=== PATIENT | male | born 1985 | race Caucasian/White ===

== ENCOUNTER 2017-10-05 07:34 | Emergency (ER) | payer SELFPAY ==
[~2017-10-05] VITALS: Ht 180.3 cm; Wt 59.0 kg
[2017-10-05 07:52] VITALS: BP 134/51
[2017-10-05] MEDS ORDERED: PREMARIN0.3 MG ORAL (07:54)
[2017-10-05] MEDS ORDERED: SPIRONOLACTONE100 MG ORAL (07:54)
[2017-10-05] MEDS ORDERED: Metoclopramide 10mg/2ml Inj IVP ONE (08:15)
[2017-10-05] MEDS ORDERED: Morphine Sulfate 4mg/ml Inj IVP ONE ×2 (08:15→08:45)
--- NOTE | 2017-10-05 08:18 | Emergency Room Report ---
History of Present Illness General Chief Complaint: Abdominal Pain Source: Patient Present Illness HPI Patient presents with mid and right upper abdominal pain He reports a last week he was diagnosed with pancreatitis Now the pain has come back 07/05 Denies any diarrhea however he has had nausea Denies any chest pain or shortness of breath Patient appears uncomfortable upon presentation Patient reports appendectomy last year Allergies: Coded Allergies: PENICILLINS (Verified Allergy, Unknown, 10/05/17) Uncoded Allergies: MORPHINE (Allergy, Unknown, hives, 10/05/17) Patient History Past Medical History: see triage record Pertinent Family History: none Reviewed Nursing Documentation: PMH: Agreed, PSxH: Agreed Nursing Documentation-PMH Past Medical History: No History, Except For Hx Gastrointestinal Problems: Yes - Pancreatitis Review of Systems All Other Systems: negative except mentioned in HPI Physical Exam Vital Signs Date Time Temp Pulse Resp B/P (MAP) Pulse Ox O2 Delivery O2 Flow Rate FiO2 10/05/17 07:40 97.5 75 14 134/51 97 Room Air Sp02 EP Interpretation: reviewed, normal General Appearance: mild distress Head: normocephalic, atraumatic Eyes: bilateral eye PERRL, bilateral eye EOMI ENT: other - Poor dentition with multiple decayed teeth Neck: full range of motion, supple Respiratory: lungs clear Cardiovascular #1: regular rate, rhythm Gastrointestinal: other - Exam is out of proportion to the evaluation, with slight touch the patient is grimacing, however appears uncomfortable Genitourinary: no CVA tenderness Musculoskeletal: normal inspection, back normal Neurologic: alert, oriented x3 Skin: normal color, no rash Lymphatic: no adenopathy Medical Decision Making Diagnostic Impression: Primary Impression: Abdominal pain ER Course With the history exam and presentation, multiple differentials considered, including but not limited to appendicitis, gastritis, cholecystitis, diverticulitis Patient's blood work is normal patient has significantly better with acute intervention At this time stable for close outpatient followup Labs Test 10/05/17 07:49 10/05/17 08:27 Urine Color Yellow Urine Appearance Clear Urine pH 6 (4.5-8.0) Urine Specific [place] 1.025 (1.005-1.035) Urine Protein Negative (NEGATIVE) Urine Glucose (UA) Negative (NEGATIVE) Urine Ketones 2+ (NEGATIVE) Urine Occult Blood Negative (NEGATIVE) Urine Nitrite Negative (NEGATIVE) Urine Bilirubin Negative (NEGATIVE) Urine Urobilinogen Normal MG/DL (0.0-1.0) Urine Leukocyte Esterase Negative (NEGATIVE) White Blood Count 7.2 K/UL (4.8-10.8) Red Blood Count 4.11 M/UL (4.70-6.10) Hemoglobin 13.8 G/DL (14.2-18.0) Hematocrit 42.6 % (42.0-52.0) Mean Corpuscular Volume 104 FL (80-99) Mean Corpuscular Hemoglobin 33.5 PG (27.0-31.0) Mean Corpuscular Hemoglobin Concent 32.3 G/DL (32.0-36.0) Red Cell Distribution Width 11.7 % (11.6-14.8) Platelet Count 224 K/UL (150-450) Mean Platelet Volume 6.7 FL (6.5-10.1) Neutrophils (%) (Auto) 62.9 % (45.0-75.0) Lymphocytes (%) (Auto) 28.5 % (20.0-45.0) Monocytes (%) (Auto) 5.5 % (1.0-10.0) Eosinophils (%) (Auto) 2.4 % (0.0-3.0) Basophils (%) (Auto) 0.7 % (0.0-2.0) Sodium Level 139 MMOL/L (136-145) Potassium Level 3.7 MMOL/L (3.5-5.1) Chloride Level 106 MMOL/L (98-107) Carbon Dioxide Level 24 MMOL/L (21-32) Anion Gap 10 mmol/L (5-15) Blood Urea Nitrogen 21 mg/dL (7-18) Creatinine 0.9 MG/DL (0.55-1.30) Estimat Glomerular Filtration Rate > 60 mL/min (>60) Glucose Level 108 MG/DL (74-106) Calcium Level 8.8 MG/DL (8.5-10.1) Total Bilirubin 0.2 MG/DL (0.2-1.0) Aspartate Amino Transf (AST/SGOT) 12 U/L (15-37) Alanine Aminotransferase (ALT/SGPT) 20 U/L (12-78) Alkaline Phosphatase 62 U/L (46-116) Total Protein 6.9 G/DL (6.4-8.2) Albumin 3.9 G/DL (3.4-5.0) Globulin 3.0 g/dL Albumin/Globulin Ratio 1.3 (1.0-2.7) Lipase 103 U/L (73-393) Last Vital Signs Date Time Temp Pulse Resp B/P (MAP) Pulse Ox O2 Delivery O2 Flow Rate FiO2 10/05/17 07:52 97.5 14 134/51 97 Room Air 10/05/17 07:40 75 Status: improved Disposition: HOME, SELF-CARE Condition: Improved Scripts Famotidine (PEPCID) 40 Mg Tablet 40 MG PO DAILY, #7 TAB 0 Refills Prov: KARL MOE D.O. 10/05/17 Referrals: NOT CHOSEN IPA/MD,REFERRING (PCP) Additional Instructions: Patient is provided with the discharge instructions notified to follow up with primary doctor in the next 2-3 days otherwise return to the er with any worsening symptoms. Please note that this report is being documented using [employer] technology. This can lead to erroneous entry secondary to incorrect interpretation by the dictating instrument. KARL MOE D.O. Oct 05, 2017 08:17
[2017-10-05] MEDS ORDERED: LORazepam Inj 2mg/ml 1ml IV ONE (08:45)
[2017-10-05 08:49] LABS: BASOPHILS % (AUTO) 0.7 % (0.0-2.0); EOSINOPHILS % (AUTO) 2.4 % (0.0-3.0); HEMATOCRIT 42.6 % (42.0-52.0); HEMOGLOBIN 13.8 G/DL (14.2-18.0); LYMPHOCYTES % (AUTO) 28.5 % (20.0-45.0); MEAN CORPUSCULAR VOLUME 104 FL (80-99); MONOCYTES % (AUTO) 5.5 % (1.0-10.0); NEUTROPHILS % (AUTO) 62.9 % (45.0-75.0); PLATELET COUNT 224 K/UL (150-450); RED BLOOD COUNT 4.11 M/UL (4.70-6.10); RED CELL DISTRIBUTION WIDTH 11.7 % (11.6-14.8); WHITE BLOOD COUNT 7.2 K/UL (4.8-10.8)
[2017-10-05 08:50] LABS: APPEARANCE,URINE CLEAR; BILIRUBIN, URINE NEGATIVE (NEGATIVE); GLUCOSE, URINE (UA) NEGATIVE (NEGATIVE); KETONES,URINE 2+ (NEGATIVE); LEUKOCYTE ESTERASE ,URINE NEGATIVE (NEGATIVE); NITRITE,URINE NEGATIVE (NEGATIVE); PH,URINE 6 (4.5-8.0); PROTEIN,URINE NEGATIVE (NEGATIVE); UROBILINOGEN,URINE NORMAL MG/DL (0.0-1.0)
[2017-10-05 08:51] LABS: ANION GAP 10 mmol/L (5-15); BLOOD UREA NITROGEN 21 mg/dL (7-18); CALCIUM 8.8 MG/DL (8.5-10.1); CARBON DIOXIDE 24 MMOL/L (21-32); CHLORIDE 106 MMOL/L (98-107); CREATININE 0.9 MG/DL (0.55-1.30); POTASSIUM 3.7 MMOL/L (3.5-5.1); SODIUM 139 MMOL/L (136-145)
[2017-10-05 08:55] LABS: ALANINE AMINOTRANSFERASE 20 U/L (12-78); ALBUMIN 3.9 G/DL (3.4-5.0); ALBUMIN/GLOBULIN RATIO 1.3 (1.0-2.7); ALKALINE PHOSPHATASE 62 U/L (46-116); ASPARTATE AMINO TRANSFERASE 12 U/L (15-37); BILIRUBIN,TOTAL 0.2 MG/DL (0.2-1.0)
[2017-10-05 08:58] VITALS: BP 110/65
[2017-10-05 09:01] LABS: COLOR,URINE YELLOW
[2017-10-05] MEDS ORDERED: PEPCID40 MG PO (09:45)
[2017-10-05 10:30] VITALS: BP 137/79
== END 2017-10-05 10:30 | disposition home or self-care (01) ==
LOC: EMR 08:15
DX: R10.11 Right upper quadrant pain (principal); Z87.19 Personal history of other diseases of the digestive system; Z88.0 Allergy status to penicillin; Z88.6 Allergy status to analgesic agent
CPT/HCPCS: 36415; 80053; 81003; 83690; 85025; 96374; 96375; 99284; J2270; J2765

== ENCOUNTER 2017-10-30 22:45 | Emergency (ER) | payer MEDICAID ==
[~2017-10-30] VITALS: Ht 177.8 cm; Wt 59.0 kg
[~2017-10-30 22:45] MED LIST: PEPCID40 MG PO; PREMARIN0.3 MG ORAL; SPIRONOLACTONE100 MG ORAL
--- NOTE | 2017-10-30 23:29 | Emergency Room Report ---
History of Present Illness General Chief Complaint: Abdominal Pain Source: Patient Present Illness HPI Is a 32-year-old male who presents with chewing abdominal pain with nausea vomiting. Onset for last couple days. Pain is severe. 10 out of 10. Vomiting is nonbloody nonbilious. No diarrhea. Said that he had this problem in the past but none recently. He said is worse in the last 2 weeks. He was here before for the same thing. Workup was unremarkable. He denies any drug use other than marijuana. Allergies: Coded Allergies: PENICILLINS (Verified Allergy, Unknown, 10/05/17) Uncoded Allergies: MORPHINE (Allergy, Unknown, hives, 10/05/17) Patient History Past Medical History: see triage record, old chart reviewed Past Surgical History: other Pertinent Family History: none Social History: Reports: smoking Immunizations: other Reviewed Nursing Documentation: PMH: Agreed, PSxH: Agreed Nursing Documentation-PMH Hx Gastrointestinal Problems: Yes - Pancreatitis Review of Systems Eye: Denies: eye pain, blurred vision ENT: Denies: ear pain, nose congestion, throat swelling Respiratory: Denies: cough, shortness of breath Cardiovascular: Denies: chest pain, palpitations Gastrointestinal: Reports: abdominal pain, nausea, vomiting, Denies: diarrhea Musculoskeletal: Denies: back pain, joint pain Skin: Denies: rash Neurological: Denies: headache, numbness Endocrine: Denies: increased thirst, increased urine Hematologic/Lymphatic: Denies: easy bruising All Other Systems: negative except mentioned in HPI Physical Exam Vital Signs Date Time Temp Pulse Resp B/P (MAP) Pulse Ox O2 Delivery O2 Flow Rate FiO2 10/30/17 22:51 97.5 99 15 126/81 97 Room Air vitals normal Sp02 EP Interpretation: reviewed, normal General Appearance: well appearing, no apparent distress, alert Head: normocephalic, atraumatic Eyes: bilateral eye PERRL, bilateral eye EOMI ENT: hearing grossly normal, normal pharynx, other - Diffuse dental decay Neck: full range of motion, supple, no meningismus Respiratory: chest non-tender, lungs clear, normal breath sounds Cardiovascular #1: regular rate, rhythm, no murmur Gastrointestinal: normal bowel sounds, no mass, no organomegaly, no bruit, non- distended, tenderness - diffuse Musculoskeletal: back normal, gait/station normal, normal range of motion Psychiatric: mood/affect normal Skin: warm/dry Medical Decision Making Diagnostic Impression: Primary Impression: Abdominal pain of unknown etiology Additional Impressions: Cyclic vomiting syndrome Qualified Codes: G43.A0 - Cyclical vomiting, not intractable Cocaine abuse Opioid dependence Qualified Codes: F11.20 - Opioid dependence, uncomplicated ER Course Patient presents with abdominal pain and what appear to be cyclic vomiting syndrome. He was extremely rude and combative. He tell me that his problem is only been for the last 2 weeks. On the [facility] system, he had a prescription filled on September 28. he was here on October 05. Patient is from [place]. I have access to [place] prescription monitoring program. There for last year, he received narcotic prescriptions from multiple different doctors every month. When I pointed this out to him he said he lost track of time. When I tried to explain patient that this may be secondary to drug and marijuana abuse causing cyclic vomiting syndrome, he became combative and cut me off before I was able to be finished. He said that is not the case. He been to multiple doctors and no one can figure it out. Patient was using profanity. He called me an "asshole", "motherfucker." I told patient that I am uncomfortable with the language he is using and walked out of the room. This is a chronic problem. Labs unremarkable. We'll discharge patient. patient left prior to labs coming back. He has no vomiting since he has been here. Lab Results Impression labs with leukocytosis Last Vital Signs Date Time Temp Pulse Resp B/P (MAP) Pulse Ox O2 Delivery O2 Flow Rate FiO2 10/30/17 22:51 97.5 99 15 126/81 97 Room Air Status: improved Disposition: AGAINST MEDICAL ADVICE Condition: Stable Referrals: NOT CHOSEN MICHEAL/,REFERRING (PCP) SAMUEL OCAMPO M.D. Oct 30, 2017 23:29
[2017-10-30] MEDS ORDERED: Ketorolac 30mg Inj IV ONE (23:45)
[2017-10-30] MEDS ORDERED: Metoclopramide 10mg/2ml Inj IVP ONE (23:45)
[2017-10-30 23:50] LABS: KETONES,URINE 1+ (NEGATIVE); LEUKOCYTE ESTERASE ,URINE 1+ (NEGATIVE); NITRITE,URINE NEGATIVE (NEGATIVE); PH,URINE 7 (4.5-8.0); PROTEIN,URINE NEGATIVE (NEGATIVE); UROBILINOGEN,URINE 1 MG/DL (0.0-1.0)
[2017-10-30 23:56] LABS: AMORPHOUS SEDIMENT,UR MANY /LPF; APPEARANCE,URINE SLIGHTLY CLOUDY; BACTERIA,URINE FEW /HPF; RBC,URINE 0-2 /HPF (0 - 0); SQUAMOUS EPITHELIAL CELL,UR FEW /LPF (NONE/OCC); WBC,URINE 0-2 /HPF (0 - 0)
[2017-10-31 00:12] LABS: BASOPHILS % (AUTO) 0.4 % (0.0-2.0); EOSINOPHILS % (AUTO) 1.2 % (0.0-3.0); LYMPHOCYTES % (AUTO) 17.2 % (20.0-45.0); MEAN CORPUSCULAR HEMOGLOBIN 33.6 PG (27.0-31.0); MEAN CORPUSCULAR HGB CONC 34.3 G/DL (32.0-36.0); MEAN CORPUSCULAR VOLUME 98 FL (80-99); MEAN PLATELET VOLUME 6.8 FL (6.5-10.1); MONOCYTES % (AUTO) 5.5 % (1.0-10.0); NEUTROPHILS % (AUTO) 75.6 % (45.0-75.0); PLATELET COUNT 297 K/UL (150-450); RED BLOOD COUNT 4.67 M/UL (4.70-6.10); RED CELL DISTRIBUTION WIDTH 11.8 % (11.6-14.8); WHITE BLOOD COUNT 15.7 K/UL (4.8-10.8)
[2017-10-31 00:28] LABS: ANION GAP 10 mmol/L (5-15); CALCIUM 9.8 MG/DL (8.5-10.1); CARBON DIOXIDE 29 MMOL/L (21-32); CHLORIDE 102 MMOL/L (98-107); GLOMERULAR FILTRATION RATE > 60 mL/min (>60); POTASSIUM 3.7 MMOL/L (3.5-5.1); SODIUM 140 MMOL/L (136-145)
[2017-10-31 00:30] VITALS: BP 126/81
[2017-10-31 00:32] LABS: ALANINE AMINOTRANSFERASE 26 U/L (12-78); ALBUMIN/GLOBULIN RATIO 1.4 (1.0-2.7); ASPARTATE AMINO TRANSFERASE 14 U/L (15-37); LIPASE 265 U/L (73-393); TOTAL PROTEIN 7.5 G/DL (6.4-8.2)
== END 2017-10-31 00:30 | disposition left against medical advice (07) ==
LOC: EMR 23:03
DX: R10.9 Unspecified abdominal pain (principal); G43.A0 Cyclical vomiting, in migraine, not intractable; F14.10 Cocaine abuse, uncomplicated; F11.20 Opioid dependence, uncomplicated
CPT/HCPCS: 36415; 80053; 80307; 81003; 83690; 85025; 96361; 96374; 96375; 99284; J1885; J2405; J2765

== ENCOUNTER 2017-12-20 08:07 | Inpatient (IN) | payer MEDICAID ==
[~2017-12-20] VITALS: Ht 180.3 cm; Wt 59.0 kg
--- NOTE | 2017-12-20 08:27 | Emergency Room Report ---
History of Present Illness General Chief Complaint: Abdominal Pain Source: Patient Present Illness HPI Patient is a 32-year-old male presented after increased abdominal pain. Patient had prior history of reported pancreatitis. The patient reports having multiple episodes of vomiting. He reports having diffuse abdominal pain associated with vomiting and diarrhea. The patient is currently taking spironolactone as well as estrogen therapy. Patient had reportedly been vomiting non-bloody emesis. He reports having prior appendectomy. He denies any dysuria or problems with urination. The previous visit patient was noted to be a drug screen positive for cocaine as well as marijuana Allergies: Coded Allergies: PENICILLINS (Verified Allergy, Unknown, 10/05/17) Uncoded Allergies: MORPHINE (Allergy, Unknown, hives, 10/05/17) Patient History Past Medical History: see triage record Reviewed Nursing Documentation: PMH: Agreed, PSxH: Agreed Nursing Documentation-PMH Past Medical History: No History, Except For Hx Gastrointestinal Problems: Yes - Pancreatitis Review of Systems All Other Systems: negative except mentioned in HPI Physical Exam Vital Signs Date Time Temp Pulse Resp B/P (MAP) Pulse Ox O2 Delivery O2 Flow Rate FiO2 12/20/17 08:08 97.2 97 20 149/95 95 Room Air Sp02 EP Interpretation: reviewed, normal General Appearance: normal inspection, alert, GCS 15, moderate distress Head: atraumatic ENT: normal ENT inspection, hearing grossly normal, normal voice Neck: normal inspection, full range of motion, supple, no bony tend Respiratory: normal inspection, lungs clear, normal breath sounds, no respiratory distress, no retraction, no wheezing Cardiovascular #1: regular rate, rhythm, no edema Gastrointestinal: normal inspection, normal bowel sounds, non tender, soft, no guarding, no hernia Genitourinary: no CVA tenderness Musculoskeletal: normal inspection, back normal, normal range of motion Neurologic: normal inspection, alert, oriented x3, responsive, fruit bar maker III-XII nml as tested, speech normal Psychiatric: normal inspection, judgement/insight normal, mood/affect normal, other - agitation Skin: normal inspection, normal color, no rash Medical Decision Making Diagnostic Impression: Primary Impression: Abdominal pain Additional Impression: Leukocytosis, unspecified ER Course Patient presented for abdominal pain. Differential diagnoses included ischemic bowel, appendicitis, perforated viscus, abdominal aortic aneurysm, inferior myocardial infarction, viral gastroenteritis. Because of complexity of patient' s case laboratory testing and imaging studies were ordered. Laboratory testing showed markedly elevated white blood count. CT the head and pelvis read by radiology showed noted to no have acute bowel obstruction. Patient was discussed with Dr. Blakely for inpatient management due to panel physician. Labs Test 12/20/17 08:47 12/20/17 09:20 White Blood Count 21.1 K/UL (4.8-10.8) Red Blood Count 4.40 M/UL (4.70-6.10) Hemoglobin 15.0 G/DL (14.2-18.0) Hematocrit 44.8 % (42.0-52.0) Mean Corpuscular Volume 102 FL (80-99) Mean Corpuscular Hemoglobin 34.2 PG (27.0-31.0) Mean Corpuscular Hemoglobin Concent 33.6 G/DL (32.0-36.0) Red Cell Distribution Width 12.2 % (11.6-14.8) Platelet Count 277 K/UL (150-450) Mean Platelet Volume 7.2 FL (6.5-10.1) Neutrophils (%) (Auto) % (45.0-75.0) Lymphocytes (%) (Auto) % (20.0-45.0) Monocytes (%) (Auto) % (1.0-10.0) Eosinophils (%) (Auto) % (0.0-3.0) Basophils (%) (Auto) % (0.0-2.0) Differential Total Cells Counted 100 Neutrophils % (Manual) 88 % (45-75) Lymphocytes % (Manual) 6 % (20-45) Monocytes % (Manual) 6 % (1-10) Eosinophils % (Manual) 0 % (0-3) Basophils % (Manual) 0 % (0-2) Band Neutrophils 0 % (0-8) Platelet Estimate Adequate Platelet Morphology Normal Macrocytosis 1+ Prothrombin Time 10.7 SEC (9.30-11.50) Prothromb Time International Ratio 1.0 (0.9-1.1) Activated Partial Thromboplast Time 28 SEC (23-33) Sodium Level 139 MMOL/L (136-145) Potassium Level 4.1 MMOL/L (3.5-5.1) Chloride Level 104 MMOL/L (98-107) Carbon Dioxide Level 25 MMOL/L (21-32) Anion Gap 10 mmol/L (5-15) Blood Urea Nitrogen 11 mg/dL (7-18) Creatinine 0.8 MG/DL (0.55-1.30) Estimat Glomerular Filtration Rate > 60 mL/min (>60) Glucose Level 117 MG/DL (74-106) Calcium Level 9.2 MG/DL (8.5-10.1) Total Bilirubin 0.3 MG/DL (0.2-1.0) Aspartate Amino Transf (AST/SGOT) 14 U/L (15-37) Alanine Aminotransferase (ALT/SGPT) 13 U/L (12-78) Alkaline Phosphatase 66 U/L (46-116) Ammonia 20 umol/L (11-32) Troponin I 0.000 ng/mL (0.000-0.056) Total Protein 7.3 G/DL (6.4-8.2) Albumin 4.2 G/DL (3.4-5.0) Globulin 3.1 g/dL Albumin/Globulin Ratio 1.4 (1.0-2.7) Lipase 130 U/L (73-393) Urine Color Pale yellow Urine Appearance Slightly cloudy Urine pH 7 (4.5-8.0) Urine Specific [place] 1.015 (1.005-1.035) Urine Protein Negative (NEGATIVE) Urine Glucose (UA) Negative (NEGATIVE) Urine Ketones 2+ (NEGATIVE) Urine Occult Blood 5+ (NEGATIVE) Urine Nitrite Negative (NEGATIVE) Urine Bilirubin Negative (NEGATIVE) Urine Urobilinogen Normal MG/DL (0.0-1.0) Urine Leukocyte Esterase 1+ (NEGATIVE) Urine RBC Tntc /HPF (0 - 0) Urine WBC 2-4 /HPF (0 - 0) Urine Squamous Epithelial Cells Many /LPF (NONE/OCC) Urine Bacteria Few /HPF (NONE) Urine Opiates Screen Negative (NEGATIVE) Urine Barbiturates Screen Negative (NEGATIVE) Phencyclidine (PCP) Screen Negative (NEGATIVE) Urine Amphetamines Screen Negative (NEGATIVE) Urine Benzodiazepines Screen Negative (NEGATIVE) Urine Cocaine Screen Negative (NEGATIVE) Urine Marijuana (THC) Screen Positive (NEGATIVE) Last Vital Signs Date Time Temp Pulse Resp B/P (MAP) Pulse Ox O2 Delivery O2 Flow Rate FiO2 12/20/17 08:08 97.2 97 20 149/95 95 Room Air Status: unchanged Disposition: ADMITTED INPATIENT Condition: Serious Referrals: NOT CHOSEN IPA/MD,REFERRING (PCP) Tristan Salter Dec 20, 2017 08:27
[2017-12-20] MEDS ORDERED: LORazepam Inj 2mg/ml 1ml IV ONE ×2 (08:30→09:00)
[2017-12-20 08:57] VITALS: BP 129/90
[2017-12-20 09:00] LABS: HEMATOCRIT 44.8 % (42.0-52.0); MEAN CORPUSCULAR VOLUME 102 FL (80-99); PLATELET COUNT 277 K/UL (150-450); RED CELL DISTRIBUTION WIDTH 12.2 % (11.6-14.8); WHITE BLOOD COUNT 21.1 K/UL (4.8-10.8)
[2017-12-20 09:14] LABS: ANION GAP 10 mmol/L (5-15); BLOOD UREA NITROGEN 11 mg/dL (7-18); CALCIUM 9.2 MG/DL (8.5-10.1); CARBON DIOXIDE 25 MMOL/L (21-32); CHLORIDE 104 MMOL/L (98-107); CREATININE 0.8 MG/DL (0.55-1.30); POTASSIUM 4.1 MMOL/L (3.5-5.1); SODIUM 139 MMOL/L (136-145)
[2017-12-20 09:18] LABS: ALANINE AMINOTRANSFERASE 13 U/L (12-78); ALBUMIN 4.2 G/DL (3.4-5.0); ALBUMIN/GLOBULIN RATIO 1.4 (1.0-2.7); ALKALINE PHOSPHATASE 66 U/L (46-116); ASPARTATE AMINO TRANSFERASE 14 U/L (15-37); BILIRUBIN,TOTAL 0.3 MG/DL (0.2-1.0)
[2017-12-20 09:25] LABS: AMMONIA 20 umol/L (11-32)
[2017-12-20 09:52] LABS: APPEARANCE,URINE SLIGHTLY CLOUDY; BILIRUBIN, URINE NEGATIVE (NEGATIVE); COLOR,URINE PALE YELLOW; GLUCOSE, URINE (UA) NEGATIVE (NEGATIVE); KETONES,URINE 2+ (NEGATIVE); LEUKOCYTE ESTERASE ,URINE 1+ (NEGATIVE); NITRITE,URINE NEGATIVE (NEGATIVE); PH,URINE 7 (4.5-8.0); PROTEIN,URINE NEGATIVE (NEGATIVE); UROBILINOGEN,URINE NORMAL MG/DL (0.0-1.0)
[2017-12-20 10:13] VITALS: BP 90/44
--- NOTE | 2017-12-20 10:43 | Diagnostic Imaging Report ---
Clinical Indication: Increased abdominal pain, history of prior pancreatitis, multiple episodes of vomiting, diffuse abdominal pain associated with vomiting and diarrhea Technique: No oral contrast utilized, per emergency room physician request IV administration nonionic contrast. Venous phase spiral acquisition obtained through the abdomen and pelvis. Multiplanar reconstructions were generated. Total dose length product 511 mGycm. CTDIvol(s) 7.47 mGy. Dose reduction achieved using automated exposure control Comparison: none Findings: Lack of enteric contrast limits assessment of the GI tract. Appendix is not visualized. Surgical lane adjacent to the cecum suggest prior appendectomy. No evidence of diverticulosis or diverticulitis. No small bowel distention. The esophagus, stomach, duodenum are grossly unremarkable. No free or loculated intraperitoneal air or fluid is evident. The liver, gallbladder, bile ducts, pancreas, spleen, adrenals, kidneys are unremarkable. No retroperitoneal or mesenteric mass or adenopathy. No pelvic mass or adenopathy. The included lung bases demonstrate posterior dependent atelectatic changes and a calcified granuloma in the periphery of the left lower lobe. Bones are unremarkable. Impression: Limited assessment of the GI tract due to lack of enteric contrast administration. No no definite acute or significant abnormality demonstrated. 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
[2017-12-20 11:23] VITALS: BP 106/67
[2017-12-20] MEDS ORDERED: Miralax 17gm pkt ORAL PRN (12:00)
[2017-12-20] MEDS ORDERED: Mylanta II UD 30ml ORAL PRN (12:00)
[2017-12-20] MEDS ORDERED: HYDROmorphone 1mg/ml Carpuject IVP PRN (12:00)
[2017-12-20] MEDS ORDERED: Nitroglycerin Subl 0.4mg tab SL PRN (12:00)
[2017-12-20 12:09] VITALS: BP 142/86
[2017-12-20] MEDS: D5 1/2NS 1,000 ML IV SCH (12:30)
[2017-12-20] MEDS ORDERED: PROGESTERONE100 MG PO (13:27)
[2017-12-20] MEDS ORDERED: SPIRONOLACTONE100 MG ORAL (13:27)
[2017-12-20] MEDS ORDERED: ESTRADIOL20 MG/1 ML IM (13:27)
[2017-12-20] MEDS: Aztreonam Inj 1 GM in NS 50 ML IVPB SCH ×2 (14:00→21:39)
[2017-12-20] MEDS: HYDROmorphone 1mg/ml Carpuject IVP PRN ×3 (15:33→21:40)
--- NOTE | 2017-12-20 15:50 | Consultation ---
History of Present Illness General Date patient seen: Dec 20, 2017 Chief Complaint: Abdominal Pain Present Illness HPI 32-year-old male with hc of pancreatitis presented to ER with cc of abdominal pain and multiple episodes of vomiting. Patient had reportedly been vomiting non-bloody emesis. He denies any dysuria or problems with urination. Pt is admitted for severe abdominal pain diarrhea, and possible infectious enteritis. Allergies: Coded Allergies: PENICILLINS (Verified Allergy, Unknown, 10/05/17) Uncoded Allergies: MORPHINE (Allergy, Unknown, hives, 10/05/17) Medication History Scheduled Estradiol Valerate (Estradiol Valerate), 20 MG IM [id number], (Reported) Estrogens Conjugated (Premarin), Unknown Dose ORAL DAILY, (Reported) Famotidine (Pepcid), 40 MG PO DAILY Spironolactone* (Spironolactone*), 100 MG ORAL BID, (Reported) Miscellaneous Medications Progesterone,Micronized (Progesterone), 100 MG PO, (Reported) Discontinued Medications Spironolactone* (Spironolactone*), Unknown Dose ORAL DAILY, (Reported) Discontinued Reason: Medication dose changed Patient History Healthcare decision maker Resuscitation status Full Code Advanced Directive on File Past Medical/Surgical History Past Medical/Surgical History: (1) Hx of appendectomy Review of Systems All Other Systems: negative except mentioned in HPI Physical Exam General Appearance: WD/WN Lines, tubes and drains: peripheral, trach HEENT: atraumatic Neck: non-tender, supple Respiratory/Chest: chest wall non-tender, normal breath sounds Breasts: no masses Cardiovascular/Chest: normal rate Abdomen: normal bowel sounds Genitourinary/Rectal: normal genital exam Last 24 Hour Vital Signs Date Time Temp Pulse Resp B/P (MAP) Pulse Ox O2 Delivery O2 Flow Rate FiO2 12/20/17 12:09 97.8 18 142/86 100 Room Air 12/20/17 11:48 97.6 62 16 106/67 99 Room Air 12/20/17 11:23 97.6 62 16 106/67 99 Room Air 12/20/17 10:13 97.6 77 20 90/44 95 Room Air 12/20/17 08:57 97.6 77 20 129/90 95 Room Air 12/20/17 08:08 97.2 97 20 149/95 95 Room Air Laboratory Tests Test 12/20/17 08:47 1/25/18 09:20 White Blood Count 21.1 K/UL (4.8-10.8) H Red Blood Count 4.40 M/UL (4.70-6.10) L Hemoglobin 15.0 G/DL (14.2-18.0) Hematocrit 44.8 % (42.0-52.0) Mean Corpuscular Volume 102 FL (80-99) H Mean Corpuscular Hemoglobin 34.2 PG (27.0-31.0) H Mean Corpuscular Hemoglobin Concent 33.6 G/DL (32.0-36.0) Red Cell Distribution Width 12.2 % (11.6-14.8) Platelet Count 277 K/UL (150-450) Mean Platelet Volume 7.2 FL (6.5-10.1) Neutrophils (%) (Auto) % (45.0-75.0) Lymphocytes (%) (Auto) % (20.0-45.0) Monocytes (%) (Auto) % (1.0-10.0) Eosinophils (%) (Auto) % (0.0-3.0) Basophils (%) (Auto) % (0.0-2.0) Differential Total Cells Counted 100 Neutrophils % (Manual) 88 % (45-75) H Lymphocytes % (Manual) 6 % (20-45) L Monocytes % (Manual) 6 % (1-10) Eosinophils % (Manual) 0 % (0-3) Basophils % (Manual) 0 % (0-2) Band Neutrophils 0 % (0-8) Platelet Estimate Adequate Platelet Morphology Normal Macrocytosis 1+ Prothrombin Time 10.7 SEC (9.30-11.50) Prothromb Time International Ratio 1.0 (0.9-1.1) Activated Partial Thromboplast Time 28 SEC (23-33) Sodium Level 139 MMOL/L (136-145) Potassium Level 4.1 MMOL/L (3.5-5.1) Chloride Level 104 MMOL/L (98-107) Carbon Dioxide Level 25 MMOL/L (21-32) Anion Gap 10 mmol/L (5-15) Blood Urea Nitrogen 11 mg/dL (7-18) Creatinine 0.8 MG/DL (0.55-1.30) Estimat Glomerular Filtration Rate > 60 mL/min (>60) Glucose Level 117 MG/DL (74-106) H Calcium Level 9.2 MG/DL (8.5-10.1) Total Bilirubin 0.3 MG/DL (0.2-1.0) Aspartate Amino Transf (AST/SGOT) 14 U/L (15-37) L Alanine Aminotransferase (ALT/SGPT) 13 U/L (12-78) Alkaline Phosphatase 66 U/L (46-116) Ammonia 20 umol/L (11-32) Troponin I 0.000 ng/mL (0.000-0.056) Total Protein 7.3 G/DL (6.4-8.2) Albumin 4.2 G/DL (3.4-5.0) Globulin 3.1 g/dL Albumin/Globulin Ratio 1.4 (1.0-2.7) Lipase 130 U/L (73-393) Urine Color Pale yellow Urine Appearance Slightly cloudy Urine pH 7 (4.5-8.0) Urine Specific [place] 1.015 (1.005-1.035) Urine Protein Negative (NEGATIVE) Urine Glucose (UA) Negative (NEGATIVE) Urine Ketones 2+ (NEGATIVE) H Urine Occult Blood 5+ (NEGATIVE) H Urine Nitrite Negative (NEGATIVE) Urine Bilirubin Negative (NEGATIVE) Urine Urobilinogen Normal MG/DL (0.0-1.0) Urine Leukocyte Esterase 1+ (NEGATIVE) H Urine RBC Tntc /HPF (0 - 0) H Urine WBC 2-4 /HPF (0 - 0) Urine Squamous Epithelial Cells Many /LPF (NONE/OCC) H Urine Bacteria Few /HPF (NONE) Urine Opiates Screen Negative (NEGATIVE) Urine Barbiturates Screen Negative (NEGATIVE) Phencyclidine (PCP) Screen Negative (NEGATIVE) Urine Amphetamines Screen Negative (NEGATIVE) Urine Benzodiazepines Screen Negative (NEGATIVE) Urine Cocaine Screen Negative (NEGATIVE) Urine Marijuana (THC) Screen Positive (NEGATIVE) H Height (Feet): 5 Height (Inches): 11.00 Weight (Pounds): 130 Medications Current Medications Medications (Trade) Dose Ordered Sig/Brandon Route PRN Reason Start Time Stop Time Status Last Admin Dose Admin Acetaminophen (Tylenol) 650 mg Q4H PRN ORAL fever 12/20/17 12:00 01/19/18 11:59 Al Hydroxide/Mg Hydroxide (Mylanta II) 30 ml Q6H PRN ORAL dyspepsia 12/20/17 12:00 01/19/18 11:59 Aztreonam 1 gm/ Sodium Chloride 50 ml @ 100 mls/hr EVERY 8 HOURS IVPB 12/20/17 14:00 12/27/17 13:59 12/20/17 14:00 Dextrose (Dextrose 50%) STAT PRN IV Hypoglycemia 12/20/17 12:00 01/19/18 11:59 Dextrose/Sodium Chloride 1,000 ml @ 75 mls/hr [id number] IV 12/20/17 13:00 01/19/18 12:59 12/20/17 12:30 Diphenhydramine HCl (Benadryl) 25 mg Q6H PRN ORAL Itching/Pruritis 12/20/17 12:00 01/19/18 11:59 Heparin Sodium (Porcine) (Heparin 5000 units/ml) 5,000 units EVERY 12 HOURS SUBQ 12/20/17 21:00 01/19/18 20:59 Hydromorphone HCl (Dilaudid) 1 mg Q3HR PRN IVP For Pain 12/20/17 15:30 12/27/17 11:59 12/20/17 15:33 Lorazepam (Ativan 2mg/ml 1ml) 1 mg Q4H PRN IV For Anxiety 12/20/17 15:00 12/27/17 14:59 Nitroglycerin (Ntg) 0.4 mg Q5M X 3 DOSES PRN SL Prn Chest Pain 12/20/17 12:00 01/19/18 11:59 Ondansetron HCl (Zofran) 4 mg Q6H PRN IVP Nausea & Vomiting 12/20/17 12:00 01/19/18 11:59 Pantoprazole (Protonix) 40 mg DAILY IVP 12/21/17 09:00 01/20/18 08:59 Polyethylene Glycol (Miralax) 17 gm HSPRN PRN ORAL Constipation 12/20/17 12:00 01/19/18 11:59 Temazepam (Restoril) 15 mg HSPRN PRN ORAL Insomnia 12/20/17 12:00 12/27/17 11:59 Assessment/Plan Problem List: (1) Infectious enteritis ICD Codes: A09 - Infectious gastroenteritis and colitis, unspecified SNOMED: 81071806 (2) Hx of appendectomy ICD Codes: Z98.890 - Other specified postprocedural states; Z90.49 - Acquired absence of other specified parts of digestive tract SNOMED: 690858017 (3) Abdominal pain ICD Codes: R10.9 - Unspecified abdominal pain SNOMED: 47614418 Assessment/Plan iv fluids check stool check HIV iv fluids check electrolytes check wbc JESSICA VERNON Dec 20, 2017 15:50
[2017-12-20] MEDS: LORazepam Inj 2mg/ml 1ml IV PRN ×2 (17:23→22:42)
--- NOTE | 2017-12-20 17:43 | History & Physical ---
History and Physical History & Physicial Dictated for Int Med-Dr Blakely no. [id number]. ELSIE ANGELES Dec 20, 2017 17:43
[2017-12-20 20:00] VITALS: BP 103/61
--- NOTE | 2017-12-20 20:45 | History and Physical Report ---
DATE OF ADMISSION: 12/20/2017 CHIEF COMPLAINT: The patient is a 32-year-old white male who presents with chief complaint of abdominal pain, nausea, and vomiting. HISTORY OF PRESENT ILLNESS: The patient has history of chronic pancreatitis. The patient states he has had on and off nausea, vomiting, and diarrhea for 1 month. The patient also has severe epigastric pain. The patient denies fevers or chills. The patient presented to [facility]. The patient was admitted for nausea, vomiting, and diarrhea to rule out acute pancreatitis. REVIEW OF SYSTEMS: CONSTITUTIONAL: The patient denies weight loss or gain. The patient denies fevers or chills. HEENT: The patient denies ear or throat pain. The patient denies headache. CARDIOVASCULAR: The patient denies palpitations or chest pain. CHEST: The patient denies wheeze or shortness of breath. ABDOMINAL: The patient complains of nausea, vomiting, and diarrhea as above. The patient complains of epigastric pain as above. The patient denies constipation. NEUROMUSCULAR: The patient denies seizures or generalized weakness. GENITOURINARY: The patient denies dysuria or increased frequency of urination. PAST MEDICAL HISTORY: Significant for: 1. Pancreatitis x2 in the past. 2. Marfan syndrome. 3. Spontaneous pneumothorax x3. PAST SURGICAL HISTORY: Significant for appendectomy. CURRENT MEDICATIONS: 1. Estrogen 20 mg IM q.2 weeks. 2. Estrogen 0.3 mg p.o. daily. 3. Pepcid 40 mg p.o. daily. 4. Progesterone 100 mg p.o. daily. 5. Spironolactone 100 mg p.o. twice daily. ALLERGIES: 1. Penicillin. 2. Morphine. 3. Tramadol. 4. Haldol. 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 The patient admits to tobacco use of one-quarter pack per day. The patient admits to rare alcohol use. PHYSICAL EXAMINATION: VITAL SIGNS: Temperature 97.6, respirations 20, pulse 77, blood pressure 129/90. GENERAL: The patient is a well-developed, well-nourished white male, in no apparent distress. HEENT: Eyes, pupils equal and responsive to light and accommodation. Extraocular movements are intact. NECK: Supple. No lymphadenopathy. CHEST: Lungs are clear to auscultation bilaterally without wheezes or rales. CARDIOVASCULAR: Regular rate. S1, S2 normal without murmurs, rubs, or gallops. ABDOMEN: Soft, nontender, nondistended. Positive bowel sounds. No evidence of hepatosplenomegaly. Currently, no rebound or guarding noted. EXTREMITIES: Negative for clubbing, cyanosis, or edema. RECTAL: Refused. GENITAL: Refused. NEUROLOGIC: Cranial nerves II through XII are grossly intact without focal deficits. Motor strength is 5/5 bilaterally and intact. Deep tendon reflexes are 2+, plantar. LABORATORY STUDIES: WBC 21.1, hemoglobin 15.3, hematocrit 44.8, platelets 277,000. Sodium 139, potassium 4.1, chloride 104, CO2 25, BUN 11, creatinine 0.8, glucose 117. Amylase was not performed. Lipase normal at 130. CT of the abdomen revealed no acute disease. ASSESSMENT: This is a 32-year-old white male with: 1. Abdominal pain. 2. Nausea with vomiting. 3. Diarrhea. 4. Chronic pancreatitis. 5. Marfan syndrome. 6. Leukocytosis. TREATMENT: 1. Abdominal pain/nausea/vomiting/diarrhea. Gastroenterology consultation has been obtained with Dr. Ascencion Kahn. Stool cultures are pending. Repeat lipase and amylase are pending. The patient may require endoscopy versus colonoscopy during this hospitalization. We will follow recommendations of Gastroenterology. 2. History of chronic pancreatitis. 3. Marfan syndrome. 4. Leukocytosis. Infectious Disease consultation has been obtained with Dr. Flores. The patient has been started empirically on intravenous aztreonam. Gutierrez Choudhury M.D. DR: Maral JOB#: [id number] CC:
[2017-12-20] MEDS: Heparin 5000 units/ml inj SUBQ SCH (21:00)
[2017-12-20] MEDS: Spironolactone 50mg tab ORAL SCH (21:39)
[2017-12-21] VITALS: BP 99/60
[2017-12-21] MEDS: HYDROmorphone 1mg/ml Carpuject IVP PRN ×5 (00:42→14:30)
[2017-12-21] MEDS: D5 1/2NS 1,000 ML IV SCH ×2 (02:49→17:03)
[2017-12-21] MEDS: LORazepam Inj 2mg/ml 1ml IV PRN ×4 (02:50→23:02)
[2017-12-21 04:00] VITALS: BP 95/50
[2017-12-21] MEDS: Aztreonam Inj 1 GM in NS 50 ML IVPB SCH ×3 (05:39→21:46)
[2017-12-21 06:27] LABS: BASOPHILS % (AUTO) 0.6 % (0.0-2.0); HEMATOCRIT 38.8 % (42.0-52.0); HEMOGLOBIN 13.1 G/DL (14.2-18.0); LYMPHOCYTES % (AUTO) 24.9 % (20.0-45.0); MEAN CORPUSCULAR VOLUME 102 FL (80-99); MONOCYTES % (AUTO) 7.7 % (1.0-10.0); NEUTROPHILS % (AUTO) 63.8 % (45.0-75.0); PLATELET COUNT 230 K/UL (150-450); RED BLOOD COUNT 3.81 M/UL (4.70-6.10); WHITE BLOOD COUNT 9.3 K/UL (4.8-10.8)
[2017-12-21 07:14] LABS: ALANINE AMINOTRANSFERASE 9 U/L (12-78); ALBUMIN 3.3 G/DL (3.4-5.0); ALBUMIN/GLOBULIN RATIO 1.3 (1.0-2.7); ALKALINE PHOSPHATASE 51 U/L (46-116); AMYLASE 53 U/L (25-115); ANION GAP 7 mmol/L (5-15); ASPARTATE AMINO TRANSFERASE 10 U/L (15-37); BILIRUBIN,TOTAL 0.2 MG/DL (0.2-1.0); BLOOD UREA NITROGEN 9 mg/dL (7-18); CARBON DIOXIDE 27 MMOL/L (21-32); CHLORIDE 105 MMOL/L (98-107); CREATININE 0.6 MG/DL (0.55-1.30); POTASSIUM 3.8 MMOL/L (3.5-5.1); SODIUM 139 MMOL/L (136-145)
[2017-12-21 08:00] VITALS: BP 101/63
[2017-12-21] MEDS: Spironolactone 50mg tab ORAL SCH ×2 (08:47→17:42)
[2017-12-21] MEDS: Pantoprazole Inj IVP SCH (08:47)
[2017-12-21] MEDS: Heparin 5000 units/ml inj SUBQ SCH ×2 (08:48→21:00)
[2017-12-21 12:00] VITALS: BP 102/58
--- NOTE | 2017-12-21 12:15 | GI Initial Consult Note ---
History of Present Illness General Date patient seen: Dec 21, 2017 Time patient seen: 12:06 Reason for Hospitalization: Abdominal Pain Referring physician: SHARAN LEVINE Reason for Consultation: ABDOMINAL PAIN Present Illness HPI Patient is a 32-year-old male presented after increased abdominal pain. Patient had prior history of reported pancreatitis. The patient reports having multiple episodes of vomiting. He reports having diffuse abdominal pain associated with vomiting and diarrhea. The patient is currently taking spironolactone as well as estrogen therapy. Patient had reportedly been vomiting non-bloody emesis. He reports having prior appendectomy. He denies any dysuria or problems with urination. The previous visit patient was noted to be a drug screen positive for cocaine as well as marijuana. GI consulted for abdominal pain. HPI noted above. Pt seen on floor, awake A& Ox4 NAD very anxious about any medical plan of care. States he/she has been to multiple hospitals for similar condition. States they have had multiple exams and imaging studies which had all come back normal. Last episode of emesis was this morning per patient they described as "bile and white and foamy." States it is not cyclic vomiting syndrome for the patient ruled it out by not smoking marijuana for 3 months. No known history of endoscopic procedures. CT AP reviewed is negative. Home Meds Active Scripts Famotidine (PEPCID) 40 Mg Tablet, 40 MG PO DAILY, #7 TAB 0 Refills Prov:KARL MOE D.O. 10/05/17 Reported Medications Progesterone,Micronized (PROGESTERONE) 100 Mg Capsule, 100 MG PO, CAP 12/20/17 Estradiol Valerate (ESTRADIOL VALERATE) 20 Mg/1 Ml Vial, 20 MG IM [id number], VIAL 12/20/17 Spironolactone* (SPIRONOLACTONE*) 100 Mg Tablet, 100 MG ORAL BID, TAB 12/20/17 Estrogens Conjugated (Premarin) 0.3 Mg Tablet, ORAL DAILY, #30 TAB 0 Refills 10/05/17 Discontinued Reported Medications Spironolactone* (SPIRONOLACTONE*) 100 Mg Tablet, ORAL DAILY, TAB 10/05/17 Med list reviewed/reconciled: Yes Allergies: Coded Allergies: MORPHINE (Unverified Allergy, Intermediate, hives, 12/20/17) uncoded allergy, created coded allergy w/comments that was attached "hives" PENICILLINS (Verified Allergy, Unknown, 10/05/17) Patient History History Provided By: Patient, Medical Record PMH Narrative Past Medical History: see triage record Reviewed Nursing Documentation: PMH: Agreed, PSxH: Agreed Nursing Documentation-PMH Past Medical History: No History, Except For Hx Gastrointestinal Problems: Yes - Pancreatitis Social History: Reports: drug use - [employer] user Review of Systems All Other Systems: negative except mentioned in HPI Physical Exam Vital Signs Date Time Temp Pulse Resp B/P (MAP) Pulse Ox O2 Delivery O2 Flow Rate FiO2 12/20/17 08:08 97.2 97 20 149/95 95 Room Air Sp02 EP Interpretation: reviewed, normal Labs Laboratory Tests Test 12/21/17 05:05 White Blood Count 9.3 K/UL (4.8-10.8) # Red Blood Count 3.81 M/UL (4.70-6.10) L Hemoglobin 13.1 G/DL (14.2-18.0) L Hematocrit 38.8 % (42.0-52.0) L Mean Corpuscular Volume 102 FL (80-99) H Mean Corpuscular Hemoglobin 34.4 PG (27.0-31.0) H Mean Corpuscular Hemoglobin Concent 33.8 G/DL (32.0-36.0) Red Cell Distribution Width 12.0 % (11.6-14.8) Platelet Count 230 K/UL (150-450) Mean Platelet Volume 7.2 FL (6.5-10.1) Neutrophils (%) (Auto) 63.8 % (45.0-75.0) Lymphocytes (%) (Auto) 24.9 % (20.0-45.0) Monocytes (%) (Auto) 7.7 % (1.0-10.0) Eosinophils (%) (Auto) 3.0 % (0.0-3.0) Basophils (%) (Auto) 0.6 % (0.0-2.0) Activated Partial Thromboplast Time 28 SEC (23-33) Sodium Level 139 MMOL/L (136-145) Potassium Level 3.8 MMOL/L (3.5-5.1) Chloride Level 105 MMOL/L (98-107) Carbon Dioxide Level 27 MMOL/L (21-32) Anion Gap 7 mmol/L (5-15) Blood Urea Nitrogen 9 mg/dL (7-18) Creatinine 0.6 MG/DL (0.55-1.30) Estimat Glomerular Filtration Rate > 60 mL/min (>60) Glucose Level 79 MG/DL (74-106) Calcium Level 8.0 MG/DL (8.5-10.1) L Total Bilirubin 0.2 MG/DL (0.2-1.0) Aspartate Amino Transf (AST/SGOT) 10 U/L (15-37) L Alanine Aminotransferase (ALT/SGPT) 9 U/L (12-78) L Alkaline Phosphatase 51 U/L (46-116) Total Protein 5.9 G/DL (6.4-8.2) L Albumin 3.3 G/DL (3.4-5.0) L Globulin 2.6 g/dL Albumin/Globulin Ratio 1.3 (1.0-2.7) Amylase Level 53 U/L (25-115) Lipase 112 U/L (73-393) General Appearance: well appearing, no apparent distress, alert, thin Head: normocephalic EENT: PERRL/EOMI, normal ENT inspection Neck: supple Respiratory: normal breath sounds, no respiratory distress Cardiovascular: normal rate Gastrointestinal: normal inspection, non tender, soft, normal bowel sounds, non -distended Rectal: deferred Genitourinary: deferred Musculoskeletal: normal inspection, back normal Neurologic: normal inspection, alert, oriented x3, responsive Psychiatric: normal inspection, judgement/insight normal, memory normal Skin: normal inspection, normal color, no rash, warm/dry, palpation normal, well hydrated Lymphatic: normal inspection, no adenopathy Current Medications Current Medications Medications (Trade) Dose Ordered Sig/Brandon Route PRN Reason Start Time Stop Time Status Last Admin Dose Admin Acetaminophen (Tylenol) 650 mg Q4H PRN ORAL fever 12/20/17 12:00 01/19/18 11:59 Al Hydroxide/Mg Hydroxide (Mylanta II) 30 ml Q6H PRN ORAL dyspepsia 12/20/17 12:00 01/19/18 11:59 Aztreonam 1 gm/ Sodium Chloride 50 ml @ 100 mls/hr EVERY 8 HOURS IVPB 12/20/17 14:00 12/27/17 13:59 12/21/17 05:39 Dextrose (Dextrose 50%) STAT PRN IV Hypoglycemia 12/20/17 12:00 01/19/18 11:59 Dextrose/Sodium Chloride 1,000 ml @ 75 mls/hr [id number] IV 12/20/17 13:00 01/19/18 12:59 12/21/17 02:49 Diphenhydramine HCl (Benadryl) 25 mg Q6H PRN ORAL Itching/Pruritis 12/20/17 12:00 01/19/18 11:59 Escitalopram Oxalate (Lexapro) 10 mg DAILY ORAL 12/21/17 11:00 01/20/18 10:59 Heparin Sodium (Porcine) (Heparin 5000 units/ml) 5,000 units EVERY 12 HOURS SUBQ 12/20/17 21:00 01/19/18 20:59 Hydromorphone HCl (Dilaudid) 1 mg Q3HR PRN IVP For Pain 12/20/17 15:30 12/27/17 11:59 12/21/17 10:46 Lorazepam (Ativan 2mg/ml 1ml) 1 mg Q4H PRN IV For Anxiety 12/20/17 15:00 12/27/17 14:59 12/21/17 08:48 Nitroglycerin (Ntg) 0.4 mg Q5M X 3 DOSES PRN SL Prn Chest Pain 12/20/17 12:00 01/19/18 11:59 Ondansetron HCl (Zofran) 4 mg Q6H PRN IVP Nausea & Vomiting 12/20/17 12:00 01/19/18 11:59 12/21/17 07:51 Pantoprazole (Protonix) 40 mg DAILY IVP 12/21/17 09:00 01/20/18 08:59 12/21/17 08:47 Polyethylene Glycol (Miralax) 17 gm HSPRN PRN ORAL Constipation 12/20/17 12:00 01/19/18 11:59 Spironolactone (Aldactone) 100 mg BID ORAL 12/20/17 22:00 01/19/18 21:59 12/21/17 08:47 Temazepam (Restoril) 15 mg HSPRN PRN ORAL Insomnia 12/20/17 12:00 12/27/17 11:59 GI: Plan Problems: (1) Cyclic vomiting syndrome (2) Abdominal pain (3) Anxiety Plan utox positive for marijuana symptomatic treatment at this time ppi daily, will add zantac qhs defer reglan, has drug interaction with SNRI zofran prn FLD, adv as tolerated fu labs, B12/folate rec psych consult Discussed with Dr. Kahn. Thank you for this patient referral, we will follow. Elise Mosqueda N.P. Dec 21, 2017 12:14
--- NOTE | 2017-12-21 13:27 | Consultation ---
Consult Note Consult Note id dic [id number] ARGELIA GORDON M.D. Dec 21, 2017 13:27
--- NOTE | 2017-12-21 14:57 | Pulmonology Progress Note ---
Assessment/Plan Problems: (1) Infectious enteritis (2) Hx of appendectomy (3) Abdominal pain Assessment/Plan wbc lower stool pending check cultures symptomatic treatment Psych evaluation ordered. Subjective ROS Limited/Unobtainable: No Constitutional: Reports: no symptoms HEENT: Repors: no symptoms Respiratory: Reports: no symptoms Allergies: Coded Allergies: MORPHINE (Unverified Allergy, Intermediate, hives, 12/20/17) uncoded allergy, created coded allergy w/comments that was attached "hives" PENICILLINS (Verified Allergy, Unknown, 10/05/17) Objective Last 24 Hour Vital Signs Date Time Temp Pulse Resp B/P (MAP) Pulse Ox O2 Delivery O2 Flow Rate FiO2 12/21/17 12:00 97.1 51 18 102/58 98 Room Air 12/21/17 11:16 97.2 12/21/17 08:00 97.3 56 18 101/63 100 Room Air 12/21/17 04:00 97.2 69 19 95/50 94 Room Air 12/21/17 00:00 97.6 62 17 99/60 100 Room Air 12/20/17 20:00 97.7 59 18 103/61 100 Room Air Intake and Output 12/20/17 12/21/17 19:00 07:00 Intake Total 475 ml 995 ml Balance 475 ml 995 ml Intake Oral 50 ml 120 ml IV Total 425 ml 875 ml # Voids 3 2 General Appearance: WD/WN HEENT: normocephalic, atraumatic Respiratory/Chest: chest wall non-tender, normal breath sounds Cardiovascular: normal peripheral pulses, regular rhythm Abdomen: normal bowel sounds, soft, non tender, no scars Genitourinary: normal external genitalia Extremities: no clubbing Skin: no ulcers 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 Laboratory Tests 12/21/17 05:05: White Blood Count 9.3#, Red Blood Count 3.81L, Hemoglobin 13.1L, Hematocrit 38.8L, Mean Corpuscular Volume 102H, Mean Corpuscular Hemoglobin 34.4H, Mean Corpuscular Hemoglobin Concent 33.8, Red Cell Distribution Width 12.0, Platelet Count 230, Mean Platelet Volume 7.2, Neutrophils (%) (Auto) 63.8, Lymphocytes (% ) (Auto) 24.9, Monocytes (%) (Auto) 7.7, Eosinophils (%) (Auto) 3.0, Basophils ( %) (Auto) 0.6, Activated Partial Thromboplast Time 28, Sodium Level 139, Potassium Level 3.8, Chloride Level 105, Carbon Dioxide Level 27, Anion Gap 7, Blood Urea Nitrogen 9, Creatinine 0.6, Estimat Glomerular Filtration Rate > 60, Glucose Level 79, Calcium Level 8.0L, Total Bilirubin 0.2, Aspartate Amino Transf (AST/SGOT) 10L, Alanine Aminotransferase (ALT/SGPT) 9L, Alkaline Phosphatase 51, Total Protein 5.9L, Albumin 3.3L, Globulin 2.6, Albumin/ Globulin Ratio 1.3, Amylase Level 53, Lipase 112 Current Medications Medications (Trade) Dose Ordered Sig/Brandon Route PRN Reason Start Time Stop Time Status Last Admin Dose Admin Acetaminophen (Tylenol) 650 mg Q4H PRN ORAL fever 12/20/17 12:00 01/19/18 11:59 Al Hydroxide/Mg Hydroxide (Mylanta II) 30 ml Q6H PRN ORAL dyspepsia 12/20/17 12:00 01/19/18 11:59 Aztreonam 1 gm/ Sodium Chloride 50 ml @ 100 mls/hr EVERY 8 HOURS IVPB 12/20/17 14:00 12/27/17 13:59 12/21/17 14:31 Dextrose (Dextrose 50%) STAT PRN IV Hypoglycemia 12/20/17 12:00 01/19/18 11:59 Dextrose/Sodium Chloride 1,000 ml @ 75 mls/hr [id number] IV 12/20/17 13:00 01/19/18 12:59 12/21/17 02:49 Diphenhydramine HCl (Benadryl) 25 mg Q6H PRN ORAL Itching/Pruritis 12/20/17 12:00 01/19/18 11:59 Escitalopram Oxalate (Lexapro) 10 mg DAILY ORAL 12/21/17 11:00 01/20/18 10:59 Famotidine (Pepcid) 20 mg QHS ORAL 12/21/17 21:00 01/20/18 20:59 Heparin Sodium (Porcine) (Heparin 5000 units/ml) 5,000 units EVERY 12 HOURS SUBQ 12/20/17 21:00 01/19/18 20:59 Hydromorphone HCl (Dilaudid) 1 mg Q3HR PRN IVP For Pain 12/20/17 15:30 12/27/17 11:59 12/21/17 14:30 Lorazepam (Ativan 2mg/ml 1ml) 1 mg Q4H PRN IV For Anxiety 12/20/17 15:00 12/27/17 14:59 12/21/17 12:18 Nitroglycerin (Ntg) 0.4 mg Q5M X 3 DOSES PRN SL Prn Chest Pain 12/20/17 12:00 01/19/18 11:59 Ondansetron HCl (Zofran) 4 mg Q6H PRN IVP Nausea & Vomiting 12/20/17 12:00 01/19/18 11:59 12/21/17 07:51 Pantoprazole (Protonix) 40 mg DAILY IVP 12/21/17 09:00 01/20/18 08:59 12/21/17 08:47 Polyethylene Glycol (Miralax) 17 gm HSPRN PRN ORAL Constipation 12/20/17 12:00 01/19/18 11:59 Spironolactone (Aldactone) 100 mg BID ORAL 12/20/17 22:00 01/19/18 21:59 12/21/17 08:47 Temazepam (Restoril) 15 mg HSPRN PRN ORAL Insomnia 12/20/17 12:00 12/27/17 11:59 JESSICA VERNON Dec 21, 2017 14:57
--- NOTE | 2017-12-21 15:40 | Consultation ---
History of Present Illness General Date patient seen: Dec 21, 2017 Chief Complaint: Abdominal Pain Referring physician: SHARAN LEVINE Reason for Consultation: ABDOMINAL PAIN Present Illness HPI 32 yo male with history of chronic pancreatitis. The patient states he has had on and off nausea, vomiting, and diarrhea for 1 month. the pt has been anxious and depressed. ativan is not working/ Allergies: Coded Allergies: MORPHINE (Unverified Allergy, Intermediate, hives, 12/20/17) uncoded allergy, created coded allergy w/comments that was attached "hives" PENICILLINS (Verified Allergy, Unknown, 10/05/17) Medication History Scheduled Estradiol Valerate (Estradiol Valerate), 20 MG IM [id number], (Reported) Estrogens Conjugated (Premarin), Unknown Dose ORAL DAILY, (Reported) Famotidine (Pepcid), 40 MG PO DAILY Spironolactone* (Spironolactone*), 100 MG ORAL BID, (Reported) Miscellaneous Medications Progesterone,Micronized (Progesterone), 100 MG PO, (Reported) Discontinued Medications Spironolactone* (Spironolactone*), Unknown Dose ORAL DAILY, (Reported) Discontinued Reason: Medication dose changed Patient History History Provided By: Patient, Medical Record, PMD Healthcare decision maker Resuscitation status Full Code Advanced Directive on File Past Medical/Surgical History Past Medical/Surgical History: (1) Leukocytosis, unspecified (2) Abdominal pain (3) Infectious enteritis (4) Anxiety (5) Cyclic vomiting syndrome Review of Systems Psychiatric: Reports: prior hx, anxiety, depressed feelings, emotional problems Physical Exam General Appearance: no apparent distress, alert Neurologic: alert, oriented x 3, responsive, depressed affect Last 24 Hour Vital Signs Date Time Temp Pulse Resp B/P (MAP) Pulse Ox O2 Delivery O2 Flow Rate FiO2 12/21/17 12:00 97.1 51 18 102/58 98 Room Air 12/21/17 11:16 97.2 12/21/17 08:00 97.3 56 18 101/63 100 Room Air 12/21/17 04:00 97.2 69 19 95/50 94 Room Air 12/21/17 00:00 97.6 62 17 99/60 100 Room Air 12/20/17 20:00 97.7 59 18 103/61 100 Room Air Intake and Output 12/20/17 12/21/17 19:00 07:00 Intake Total 475 ml 995 ml Balance 475 ml 995 ml Intake Oral 50 ml 120 ml IV Total 425 ml 875 ml # Voids 3 2 Laboratory Tests Test 12/21/17 05:05 White Blood Count 9.3 K/UL (4.8-10.8) # Red Blood Count 3.81 M/UL (4.70-6.10) L Hemoglobin 13.1 G/DL (14.2-18.0) L Hematocrit 38.8 % (42.0-52.0) L Mean Corpuscular Volume 102 FL (80-99) H Mean Corpuscular Hemoglobin 34.4 PG (27.0-31.0) H Mean Corpuscular Hemoglobin Concent 33.8 G/DL (32.0-36.0) Red Cell Distribution Width 12.0 % (11.6-14.8) Platelet Count 230 K/UL (150-450) Mean Platelet Volume 7.2 FL (6.5-10.1) Neutrophils (%) (Auto) 63.8 % (45.0-75.0) Lymphocytes (%) (Auto) 24.9 % (20.0-45.0) Monocytes (%) (Auto) 7.7 % (1.0-10.0) Eosinophils (%) (Auto) 3.0 % (0.0-3.0) Basophils (%) (Auto) 0.6 % (0.0-2.0) Activated Partial Thromboplast Time 28 SEC (23-33) Sodium Level 139 MMOL/L (136-145) Potassium Level 3.8 MMOL/L (3.5-5.1) Chloride Level 105 MMOL/L (98-107) Carbon Dioxide Level 27 MMOL/L (21-32) Anion Gap 7 mmol/L (5-15) Blood Urea Nitrogen 9 mg/dL (7-18) Creatinine 0.6 MG/DL (0.55-1.30) Estimat Glomerular Filtration Rate > 60 mL/min (>60) Glucose Level 79 MG/DL (74-106) Calcium Level 8.0 MG/DL (8.5-10.1) L Total Bilirubin 0.2 MG/DL (0.2-1.0) Aspartate Amino Transf (AST/SGOT) 10 U/L (15-37) L Alanine Aminotransferase (ALT/SGPT) 9 U/L (12-78) L Alkaline Phosphatase 51 U/L (46-116) Total Protein 5.9 G/DL (6.4-8.2) L Albumin 3.3 G/DL (3.4-5.0) L Globulin 2.6 g/dL Albumin/Globulin Ratio 1.3 (1.0-2.7) Amylase Level 53 U/L (25-115) Lipase 112 U/L (73-393) Height (Feet): 5 Height (Inches): 11.00 Weight (Pounds): 130 Medications Current Medications Medications (Trade) Dose Ordered Sig/Brandon Route PRN Reason Start Time Stop Time Status Last Admin Dose Admin Acetaminophen (Tylenol) 650 mg Q4H PRN ORAL fever 12/20/17 12:00 01/19/18 11:59 Al Hydroxide/Mg Hydroxide (Mylanta II) 30 ml Q6H PRN ORAL dyspepsia 12/20/17 12:00 01/19/18 11:59 Aztreonam 1 gm/ Sodium Chloride 50 ml @ 100 mls/hr EVERY 8 HOURS IVPB 12/20/17 14:00 12/27/17 13:59 12/21/17 14:31 Dextrose (Dextrose 50%) STAT PRN IV Hypoglycemia 12/20/17 12:00 01/19/18 11:59 Dextrose/Sodium Chloride 1,000 ml @ 75 mls/hr [id number] IV 12/20/17 13:00 01/19/18 12:59 12/21/17 02:49 Diphenhydramine HCl (Benadryl) 25 mg Q6H PRN ORAL Itching/Pruritis 12/20/17 12:00 01/19/18 11:59 Escitalopram Oxalate (Lexapro) 10 mg DAILY ORAL 12/21/17 11:00 01/20/18 10:59 Famotidine (Pepcid) 20 mg QHS ORAL 12/21/17 21:00 01/20/18 20:59 Heparin Sodium (Porcine) (Heparin 5000 units/ml) 5,000 units EVERY 12 HOURS SUBQ 12/20/17 21:00 01/19/18 20:59 Hydromorphone HCl (Dilaudid) 1 mg Q3HR PRN IVP For Pain 12/20/17 15:30 2/1/18 11:59 12/21/17 14:30 Lorazepam (Ativan 2mg/ml 1ml) 1 mg Q4H PRN IV For Anxiety 12/20/17 15:00 12/27/17 14:59 12/21/17 12:18 Nitroglycerin (Ntg) 0.4 mg Q5M X 3 DOSES PRN SL Prn Chest Pain 12/20/17 12:00 01/19/18 11:59 Ondansetron HCl (Zofran) 4 mg Q6H PRN IVP Nausea & Vomiting 12/20/17 12:00 01/19/18 11:59 12/21/17 07:51 Pantoprazole (Protonix) 40 mg DAILY IVP 12/21/17 09:00 01/20/18 08:59 12/21/17 08:47 Polyethylene Glycol (Miralax) 17 gm HSPRN PRN ORAL Constipation 12/20/17 12:00 01/19/18 11:59 Spironolactone (Aldactone) 100 mg BID ORAL 12/20/17 22:00 01/19/18 21:59 12/21/17 08:47 Temazepam (Restoril) 15 mg HSPRN PRN ORAL Insomnia 12/20/17 12:00 12/27/17 11:59 Assessment/Plan Status: stable Assessment/Plan Anxiety d/o -lexapro 10mg qam -ativan prn Jeferson Costa M.D. Dec 21, 2017 15:40
[2017-12-21 16:00] VITALS: BP 99/66
--- NOTE | 2017-12-21 16:35 | Internal Med Progress Note ---
Subjective Date of Service: Dec 21, 2017 Physician Name Elsie Angeles Attending Physician Guillermo Blakely MD Current Medications Medications (Trade) Dose Ordered Sig/Brandon Route PRN Reason Start Time Stop Time Status Last Admin Dose Admin Acetaminophen (Tylenol) 650 mg Q4H PRN ORAL fever 12/20/17 12:00 01/19/18 11:59 Al Hydroxide/Mg Hydroxide (Mylanta II) 30 ml Q6H PRN ORAL dyspepsia 12/20/17 12:00 01/19/18 11:59 Aztreonam 1 gm/ Sodium Chloride 50 ml @ 100 mls/hr EVERY 8 HOURS IVPB 12/20/17 14:00 12/27/17 13:59 12/21/17 14:31 Dextrose (Dextrose 50%) STAT PRN IV Hypoglycemia 12/20/17 12:00 01/19/18 11:59 Dextrose/Sodium Chloride 1,000 ml @ 75 mls/hr [id number] IV 12/20/17 13:00 01/19/18 12:59 12/21/17 02:49 Diphenhydramine HCl (Benadryl) 25 mg Q6H PRN ORAL Itching/Pruritis 12/20/17 12:00 01/19/18 11:59 Escitalopram Oxalate (Lexapro) 10 mg DAILY ORAL 12/21/17 11:00 01/20/18 10:59 Famotidine (Pepcid) 20 mg QHS ORAL 12/21/17 21:00 01/20/18 20:59 Heparin Sodium (Porcine) (Heparin 5000 units/ml) 5,000 units EVERY 12 HOURS SUBQ 12/20/17 21:00 01/19/18 20:59 Hydromorphone HCl (Dilaudid) 1 mg Q3HR PRN IVP For Pain 12/20/17 15:30 12/27/17 11:59 12/21/17 14:30 Lorazepam (Ativan 2mg/ml 1ml) 1 mg Q4H PRN IV For Anxiety 12/20/17 15:00 12/27/17 14:59 12/21/17 12:18 Nitroglycerin (Ntg) 0.4 mg Q5M X 3 DOSES PRN SL Prn Chest Pain 12/20/17 12:00 01/19/18 11:59 Ondansetron HCl (Zofran) 4 mg Q6H PRN IVP Nausea & Vomiting 12/20/17 12:00 01/19/18 11:59 12/21/17 07:51 Pantoprazole (Protonix) 40 mg DAILY IVP 12/21/17 09:00 01/20/18 08:59 12/21/17 08:47 Polyethylene Glycol (Miralax) 17 gm HSPRN PRN ORAL Constipation 12/20/17 12:00 01/19/18 11:59 Spironolactone (Aldactone) 100 mg BID ORAL 12/20/17 22:00 01/19/18 21:59 12/21/17 08:47 Temazepam (Restoril) 15 mg HSPRN PRN ORAL Insomnia 12/20/17 12:00 12/27/17 11:59 Allergies: Coded Allergies: MORPHINE (Unverified Allergy, Intermediate, hives, 12/20/17) uncoded allergy, created coded allergy w/comments that was attached "hives" PENICILLINS (Verified Allergy, Unknown, 10/05/17) ROS Limited/Unobtainable: No Constitutional: Reports: no symptoms HEENT: Reports: no symptoms Cardiovascular: Reports: no symptoms Respiratory: Reports: no symptoms Gastrointestinal/Abdominal: Reports: abdominal pain Genitourinary: Reports: no symptoms Neurologic/Psychiatric: Reports: no symptoms Subjective 32 YO M admitted with abdominal pain. Now hematuria. Await CT urogram. Cover for Int [facility]-Dr Blakely. Objective Last Vital Signs Date Time Temp Pulse Resp B/P (MAP) Pulse Ox O2 Delivery O2 Flow Rate FiO2 12/21/17 15:00 97.1 12/21/17 12:00 51 18 102/58 98 Room Air General Appearance: alert, moderate distress, thin EENT: PERRL/EOMI, normal ENT inspection Neck: non-tender, normal alignment, supple, normal inspection Cardiovascular: normal peripheral pulses, normal rate, regular rhythm, no gallop/murmur, no JVD Respiratory/Chest: chest wall non-tender, lungs clear, normal breath sounds, no respiratory distress, no accessory muscle use Abdomen: normal bowel sounds, non tender, soft, no organomegaly, no mass Extremities: normal range of motion, non-tender Neurologic: regulatory affairs coordinator II-XII grossly normal, no motor/sensory deficits Skin: normal pigmentation, warm/dry Laboratory Tests Test 12/21/17 05:05 White Blood Count 9.3 K/UL (4.8-10.8) # Red Blood Count 3.81 M/UL (4.70-6.10) L Hemoglobin 13.1 G/DL (14.2-18.0) L Hematocrit 38.8 % (42.0-52.0) L Mean Corpuscular Volume 102 FL (80-99) H Mean Corpuscular Hemoglobin 34.4 PG (27.0-31.0) H Mean Corpuscular Hemoglobin Concent 33.8 G/DL (32.0-36.0) Red Cell Distribution Width 12.0 % (11.6-14.8) Platelet Count 230 K/UL (150-450) Mean Platelet Volume 7.2 FL (6.5-10.1) Neutrophils (%) (Auto) 63.8 % (45.0-75.0) Lymphocytes (%) (Auto) 24.9 % (20.0-45.0) Monocytes (%) (Auto) 7.7 % (1.0-10.0) Eosinophils (%) (Auto) 3.0 % (0.0-3.0) Basophils (%) (Auto) 0.6 % (0.0-2.0) Activated Partial Thromboplast Time 28 SEC (23-33) Sodium Level 139 MMOL/L (136-145) Potassium Level 3.8 MMOL/L (3.5-5.1) Chloride Level 105 MMOL/L (98-107) Carbon Dioxide Level 27 MMOL/L (21-32) Anion Gap 7 mmol/L (5-15) Blood Urea Nitrogen 9 mg/dL (7-18) Creatinine 0.6 MG/DL (0.55-1.30) Estimat Glomerular Filtration Rate > 60 mL/min (>60) Glucose Level 79 MG/DL (74-106) Calcium Level 8.0 MG/DL (8.5-10.1) L Total Bilirubin 0.2 MG/DL (0.2-1.0) Aspartate Amino Transf (AST/SGOT) 10 U/L (15-37) L Alanine Aminotransferase (ALT/SGPT) 9 U/L (12-78) L Alkaline Phosphatase 51 U/L (46-116) Total Protein 5.9 G/DL (6.4-8.2) L Albumin 3.3 G/DL (3.4-5.0) L Globulin 2.6 g/dL Albumin/Globulin Ratio 1.3 (1.0-2.7) Amylase Level 53 U/L (25-115) Lipase 112 U/L (73-393) Intake and Output 12/20/17 12/21/17 19:00 07:00 Intake Total 475 ml 995 ml Balance 475 ml 995 ml Intake Oral 50 ml 120 ml IV Total 425 ml 875 ml # Voids 3 2 Assessment/Plan Problem List: (1) Diarrhea (2) Pancreatitis, chronic Assessment & Plan: Enzymes normal (3) Marfans syndrome (4) Nausea & vomiting Assessment & Plan: See GI note. (5) Left flank pain Assessment & Plan: Await CT urogram to R/O ranal calculus (6) Leukocytosis, unspecified Assessment & Plan: resolving. Cont ertapenem per ID Status: unchanged ELSIE ANGELES Dec 21, 2017 16:35
--- NOTE | 2017-12-21 18:45 | Consultation ---
DATE OF CONSULTATION: 12/21/2017 INFECTIOUS DISEASE CONSULTATION CONSULTING PHYSICIAN: Noman Flores M.D. REFERRING PHYSICIAN: 1. Brandy Mcneill M.D. 2. Gutierrez Choudhury M.D. REASON FOR CONSULTATION: Evaluation of patient for leukocytosis, diarrhea, evaluation of patient for need for antibiotic management. HISTORY OF PRESENT ILLNESS: The patient is a 32-year-old male who came to the hospital with chief complaint of abdominal pain, nausea and vomiting. The patient's states he has diarrhea in the morning. The patient was not very cooperative in providing detailed information. According to him, he has been into several hospitals and they did not have any specific diagnosis for the patient. The patient denies having fever or chills. PAST MEDICAL HISTORY: Significant for Marfan syndrome, history of spontaneous pneumothorax in the past, history of pancreatitis, history of anxiety, and history of transition sex to female. MEDICATIONS: The patient is on aztreonam. SOCIAL HISTORY: Significant for smoking tobacco and marijuana. The patient denies any IV drug abuse or alcohol abuse. FAMILY HISTORY: Noncontributory. REVIEW OF SYSTEMS: A 10-point review was done. Much of the information I was able to gather as mentioned above. PHYSICAL EXAMINATION: VITAL SIGNS: Temperature 97 degrees, pulse 86, respiratory rate 18, and blood pressure 102/58. HEENT: No pale conjunctivae. No icterus. NECK: No lymphadenopathy. CHEST: Clear. HEART: S1 and S2. ABDOMEN: Soft and appears to be tender in all four quadrants, mostly on the right lower quadrant. EXTREMITIES: No cyanosis. NEUROLOGIC: Awake and alert. LABORATORY AND DIAGNOSTIC DATA: White blood cells at the time of admission 21 and today 9.3, hemoglobin 13, and platelet 230. UA too numerous to count red blood cells and 2 to 4 white blood cells. BUN 9 and creatinine 0.6. ALT and AST are unremarkable. Alkaline phosphatase unremarkable. CT scan shows no significant abnormality, history of appendectomy. ASSESSMENT: 1. Leukocytosis due to acute stress, improved. 2. Nausea and vomiting, chronic, doubt infectious etiology. 3. Diarrhea, chronic, doubt infectious diarrhea in view of having nausea and vomiting associated with the episodes. PLAN: 1. We will continue the patient on aztreonam for now. 2. Monitor CBC. 3. Monitor BMP. 4. Monitor cultures (stool). 5. stool for ova and parasite, Cryptosporidium,and modified AFB stain. 6. Stool for C. difficile, culture, 7. Recommend gastrointestinal evaluation and possible endoscopy. 8. Based on the patient's clinical course and labs, we will do further recommendation. Thank you, Dr. Choudhury, for allowing me to participate in the care of this patient. I will follow the patient with you during this hospitalization. Noman Flores M.D. DR: JERRY JOB#: [id number] CC: [place]
[2017-12-21 20:00] VITALS: BP 101/71
[2017-12-22] VITALS: BP 112/65
[2017-12-22 04:00] VITALS: BP 96/64
[2017-12-22] MEDS: D5 1/2NS 1,000 ML IV SCH ×2 (05:32→18:20)
[2017-12-22] MEDS: Aztreonam Inj 1 GM in NS 50 ML IVPB SCH (05:32)
[2017-12-22] MEDS: LORazepam Inj 2mg/ml 1ml IV PRN ×4 (05:40→22:51)
[2017-12-22 06:56] LABS: ANION GAP 7 mmol/L (5-15); BLOOD UREA NITROGEN 6 mg/dL (7-18); CALCIUM 8.7 MG/DL (8.5-10.1); CARBON DIOXIDE 29 MMOL/L (21-32); CHLORIDE 103 MMOL/L (98-107); CREATININE 0.8 MG/DL (0.55-1.30); POTASSIUM 4.4 MMOL/L (3.5-5.1); SODIUM 138 MMOL/L (136-145)
[2017-12-22 06:59] LABS: BASOPHILS % (AUTO) 0.4 % (0.0-2.0); EOSINOPHILS % (AUTO) 1.9 % (0.0-3.0); HEMATOCRIT 41.6 % (42.0-52.0); HEMOGLOBIN 13.9 G/DL (14.2-18.0); LYMPHOCYTES % (AUTO) 14.1 % (20.0-45.0); MEAN CORPUSCULAR VOLUME 103 FL (80-99); NEUTROPHILS % (AUTO) 78.7 % (45.0-75.0); PLATELET COUNT 259 K/UL (150-450); RED BLOOD COUNT 4.06 M/UL (4.70-6.10); RED CELL DISTRIBUTION WIDTH 12.5 % (11.6-14.8); WHITE BLOOD COUNT 14.3 K/UL (4.8-10.8)
[2017-12-22 08:00] VITALS: BP_SYST 105; BP_SYST 108; BP_DIAS 60; BP_DIAS 75
[2017-12-22] MEDS: Spironolactone 50mg tab ORAL SCH ×2 (08:37→17:00)
[2017-12-22] MEDS: Pantoprazole Inj IVP SCH (08:37)
[2017-12-22] MEDS: Heparin 5000 units/ml inj SUBQ SCH ×2 (08:40→21:00)
--- NOTE | 2017-12-22 10:28 | Diagnostic Imaging Report ---
Indication: Abdominal pain Technique: CT of the abdomen and pelvis utilizing automated exposure control. Noncontrast, arterial, venous and delayed urographic phase imaging acquired. Axial, sagittal and coronal reformats. CT dose: Total DLP 1780 mGycm; CTDI vol 0.2, 10.1, 8.1, 8.1, 81.1, 9.8, 10.3, 10.3 mGy Comparison: 12/20/2017 Findings: Lack of enteric contracts limits evaluation of the GI tract. Within these limitations: There is a calcified granuloma in the left lower lobe. No pleural effusion or focal airspace consolidation. Heart size within normal limits. No pericardial effusion. Liver normal in contour. No focal liver lesion is appreciated. Hepatic veins and portal veins are patent. Gallbladder unremarkable in appearance. No biliary ductal dilatation. Spleen, adrenal glands and pancreas are unremarkable in appearance. Kidneys are symmetric in size. There is no perinephric stranding. No urinary tract stones are noted on noncontrast study. Kidneys enhance symmetrically. No evidence of hydronephrosis or hydroureter. Ureters are symmetric. There is excretion of contrast to the bladder. There is loss of urinary phase opacification of the mid/distal left ureter which may be related to ureteral contraction. Bladder wall is mildly thickened versus underdistention. There is no evidence of bowel obstruction. There is no free intraperitoneal air or ascites. Question mild thickening of some small bowel loops possibly reflective of an enteritis. Surgical material noted in the right lower quadrant. Question prior appendectomy. Abdominal aorta normal in caliber. No bulky abdominal or pelvic lymphadenopathy seen. No acute osseous abnormality. IMPRESSION: No evidence of urinary tract stone or hydronephrosis as questioned clinically. Mild thickening of the bladder wall may be related to underdistention or cystitis. Correlate with urinalysis. The mid evaluation of the bowel without oral contrast. Questionable thickening of some small bowel loops possibly reflective of an enteritis versus underdistention. Correlate clinically. No evidence of bowel obstruction, free intraperitoneal air or ascites. Additional findings as above This corresponds with the statrad preliminary report. The CT scanner at [facility] is accredited by the [employer] and the scans are performed using protocols designed to limit radiation exposure to as low as reasonably achievable to attain images of sufficient resolution adequate for diagnostic evaluation.
--- NOTE | 2017-12-22 10:33 | Infectious Diseases Prog Note ---
Assessment/Plan Assessment/Plan ASSESSMENT: The patient is a 32-year-old male to female transgender ( on Aldactone and Estrogen Inj ) Leukocytosis ( M/I due to acute stress and vomiting episodes) improved but now increased Cyclic vomiting, chronic, doubt infectious etiology Diarrhea, chronic, ro parasitic infections CT: Questionable thickening of some small bowel loops possibly reflective of an enteritis versus underdistention. HIV Neg ?cystitis HU + CT: No evidence of urinary tract stone or hydronephrosis as questioned clinically. Mild thickening of the bladder HIV neg Marfan syndrome history of spontaneous pneumothorax hx of Pancreatitis Anxiety smoker (tobacco and marijuana) patient denies any IV drug abuse or alcohol abuse history of appendectomy. PLAN: continue the patient on aztreonam d# 2 , change to Levaquin and Flagyl d# 1/5 Monitor CBC. Monitor BMP. cultures (blood and urine). Stool for C. difficile, culture, ova and parasite, Cryptosporidium, and modified AFB stain. GI following Subjective Allergies: Coded Allergies: MORPHINE (Unverified Allergy, Intermediate, hives, 12/20/17) uncoded allergy, created coded allergy w/comments that was attached "hives" PENICILLINS (Verified Allergy, Unknown, 10/05/17) Subjective N/V/D Objective Vital Signs Last 24 Hour Vital Signs Date Time Temp Pulse Resp B/P (MAP) Pulse Ox O2 Delivery O2 Flow Rate FiO2 12/22/17 08:00 97.2 67 20 108/75 95 12/22/17 08:00 97.2 68 18 105/60 97 Room Air 12/22/17 04:00 97.8 63 18 96/64 100 Room Air 12/22/17 00:00 97.5 70 18 112/65 100 Room Air 12/21/17 20:00 97.7 57 18 101/71 100 Room Air 12/21/17 17:31 97.1 12/21/17 16:00 97.3 68 18 99/66 98 Room Air 12/21/17 15:00 97.1 12/21/17 12:00 97.1 51 18 102/58 98 Room Air Height (Feet): 5 Height (Inches): 11.00 Weight (Pounds): 130 HEENT: anicteric Respiratory/Chest: normal breath sounds Cardiovascular: regularly irregular Abdomen: no mass Laboratory Tests Test 12/21/17 22:00 12/22/17 05:40 Cryptosporidium Exam (LAB) Pending White Blood Count 14.3 K/UL (4.8-10.8) #H Red Blood Count 4.06 M/UL (4.70-6.10) L Hemoglobin 13.9 G/DL (14.2-18.0) L Hematocrit 41.6 % (42.0-52.0) L Mean Corpuscular Volume 103 FL (80-99) H Mean Corpuscular Hemoglobin 34.2 PG (27.0-31.0) H Mean Corpuscular Hemoglobin Concent 33.3 G/DL (32.0-36.0) Red Cell Distribution Width 12.5 % (11.6-14.8) Platelet Count 259 K/UL (150-450) Mean Platelet Volume 7.1 FL (6.5-10.1) Neutrophils (%) (Auto) 78.7 % (45.0-75.0) H Lymphocytes (%) (Auto) 14.1 % (20.0-45.0) L Monocytes (%) (Auto) 5.0 % (1.0-10.0) Eosinophils (%) (Auto) 1.9 % (0.0-3.0) Basophils (%) (Auto) 0.4 % (0.0-2.0) Sodium Level 138 MMOL/L (136-145) Potassium Level 4.4 MMOL/L (3.5-5.1) Chloride Level 103 MMOL/L (98-107) Carbon Dioxide Level 29 MMOL/L (21-32) Anion Gap 7 mmol/L (5-15) Blood Urea Nitrogen 6 mg/dL (7-18) L Creatinine 0.8 MG/DL (0.55-1.30) Estimat Glomerular Filtration Rate > 60 mL/min (>60) Glucose Level 83 MG/DL (74-106) Calcium Level 8.7 MG/DL (8.5-10.1) Vitamin B12 Level 592 PG/ML (193-986) Folate 14.5 NG/ML (8.6-58.9) Current Medications Medications (Trade) Dose Ordered Sig/Brandon Route PRN Reason Start Time Stop Time Status Last Admin Dose Admin Acetaminophen (Tylenol) 650 mg Q4H PRN ORAL fever 12/20/17 12:00 01/19/18 11:59 Al Hydroxide/Mg Hydroxide (Mylanta II) 30 ml Q6H PRN ORAL dyspepsia 12/20/17 12:00 01/19/18 11:59 Aztreonam 1 gm/ Sodium Chloride 50 ml @ 100 mls/hr EVERY 8 HOURS IVPB 12/20/17 14:00 12/27/17 13:59 12/22/17 05:32 Dextrose (Dextrose 50%) STAT PRN IV Hypoglycemia 12/20/17 12:00 01/19/18 11:59 Dextrose/Sodium Chloride 1,000 ml @ 75 mls/hr [id number] IV 12/20/17 13:00 01/19/18 12:59 12/22/17 05:32 Diphenhydramine HCl (Benadryl) 25 mg Q6H PRN ORAL Itching/Pruritis 12/20/17 12:00 01/19/18 11:59 Escitalopram Oxalate (Lexapro) 10 mg DAILY ORAL 12/21/17 11:00 01/20/18 10:59 12/22/17 08:37 Famotidine (Pepcid) 20 mg QHS ORAL 12/21/17 21:00 01/20/18 20:59 12/21/17 21:45 Heparin Sodium (Porcine) (Heparin 5000 units/ml) 5,000 units EVERY 12 HOURS SUBQ 12/20/17 21:00 01/19/18 20:59 Hydromorphone HCl (Dilaudid) 1 mg Q3H PRN IVP Moderate Pain (Pain Scale 4-6) 12/21/17 17:00 12/28/17 16:59 Hydromorphone HCl (Dilaudid) 2 mg Q3H PRN IVP Severe Pain (Pain Scale 7-10) 12/21/17 17:00 12/28/17 16:59 12/22/17 07:24 Lorazepam (Ativan 2mg/ml 1ml) 1 mg Q4H PRN IV For Anxiety 12/20/17 15:00 12/27/17 14:59 12/22/17 10:03 Nitroglycerin (Ntg) 0.4 mg Q5M X 3 DOSES PRN SL Prn Chest Pain 12/20/17 12:00 01/19/18 11:59 Ondansetron HCl (Zofran) 4 mg Q6H PRN IVP Nausea & Vomiting 12/20/17 12:00 01/19/18 11:59 12/22/17 04:10 Pantoprazole (Protonix) 40 mg DAILY IVP 12/21/17 09:00 01/20/18 08:59 12/22/17 08:37 Polyethylene Glycol (Miralax) 17 gm HSPRN PRN ORAL Constipation 12/20/17 12:00 01/19/18 11:59 Spironolactone (Aldactone) 100 mg BID ORAL 12/20/17 22:00 01/19/18 21:59 12/22/17 08:37 Temazepam (Restoril) 15 mg HSPRN PRN ORAL Insomnia 12/20/17 12:00 12/27/17 11:59 ARGELIA GORDON M.D. Dec 22, 2017 10:33
[2017-12-22 12:55] VITALS: BP 107/68
--- NOTE | 2017-12-22 13:19 | Internal Med Progress Note ---
Subjective Date of Service: Dec 22, 2017 Physician Name Elsie Angeles Attending Physician Guillermo Blakely MD Current Medications Medications (Trade) Dose Ordered Sig/Brandon Route PRN Reason Start Time Stop Time Status Last Admin Dose Admin Acetaminophen (Tylenol) 650 mg Q4H PRN ORAL fever 12/20/17 12:00 01/19/18 11:59 Al Hydroxide/Mg Hydroxide (Mylanta II) 30 ml Q6H PRN ORAL dyspepsia 12/20/17 12:00 01/19/18 11:59 Dextrose (Dextrose 50%) STAT PRN IV Hypoglycemia 12/20/17 12:00 01/19/18 11:59 Dextrose/Sodium Chloride 1,000 ml @ 75 mls/hr [id number] IV 12/20/17 13:00 01/19/18 12:59 12/22/17 05:32 Diphenhydramine HCl (Benadryl) 25 mg Q6H PRN ORAL Itching/Pruritis 12/20/17 12:00 01/19/18 11:59 Escitalopram Oxalate (Lexapro) 10 mg DAILY ORAL 12/21/17 11:00 01/20/18 10:59 12/22/17 08:37 Famotidine (Pepcid) 20 mg QHS ORAL 12/21/17 21:00 01/20/18 20:59 12/21/17 21:45 Heparin Sodium (Porcine) (Heparin 5000 units/ml) 5,000 units EVERY 12 HOURS SUBQ 12/20/17 21:00 01/19/18 20:59 Hydromorphone HCl (Dilaudid) 1 mg Q3H PRN IVP Moderate Pain (Pain Scale 4-6) 12/21/17 17:00 12/28/17 16:59 Hydromorphone HCl (Dilaudid) 2 mg Q3H PRN IVP Severe Pain (Pain Scale 7-10) 12/21/17 17:00 12/28/17 16:59 12/22/17 11:19 Levofloxacin 100 ml @ 100 mls/hr Q24H IVPB 12/22/17 13:00 12/29/17 12:59 12/22/17 12:57 Lorazepam (Ativan 2mg/ml 1ml) 1 mg Q4H PRN IV For Anxiety 12/20/17 15:00 12/27/17 14:59 12/22/17 10:03 Metronidazole 100 ml @ 100 mls/hr Q8HR IVPB 12/22/17 14:00 12/29/17 13:59 Nitroglycerin (Ntg) 0.4 mg Q5M X 3 DOSES PRN SL Prn Chest Pain 12/20/17 12:00 01/19/18 11:59 Ondansetron HCl (Zofran) 4 mg Q6H PRN IVP Nausea & Vomiting 12/20/17 12:00 01/19/18 11:59 12/22/17 04:10 Pantoprazole (Protonix) 40 mg DAILY IVP 12/21/17 09:00 01/20/18 08:59 12/22/17 08:37 Polyethylene Glycol (Miralax) 17 gm HSPRN PRN ORAL Constipation 12/20/17 12:00 01/19/18 11:59 Spironolactone (Aldactone) 100 mg BID ORAL 12/20/17 22:00 01/19/18 21:59 12/22/17 08:37 Temazepam (Restoril) 15 mg HSPRN PRN ORAL Insomnia 12/20/17 12:00 12/27/17 11:59 Allergies: Coded Allergies: MORPHINE (Unverified Allergy, Intermediate, hives, 12/20/17) uncoded allergy, created coded allergy w/comments that was attached "hives" PENICILLINS (Verified Allergy, Unknown, 10/05/17) ROS Limited/Unobtainable: No Constitutional: Reports: no symptoms HEENT: Reports: no symptoms Cardiovascular: Reports: no symptoms Respiratory: Reports: no symptoms Gastrointestinal/Abdominal: Reports: abdominal pain Genitourinary: Reports: no symptoms Neurologic/Psychiatric: Reports: no symptoms Subjective 32 YO M admitted with abdominal pain. Now hematuria. Cover for Int [facility]-Dr Blakely. Objective Last Vital Signs Date Time Temp Pulse Resp B/P (MAP) Pulse Ox O2 Delivery O2 Flow Rate FiO2 12/22/17 12:55 97.9 63 20 107/68 96 12/22/17 08:00 Room Air Laboratory Tests Test 12/21/17 22:00 12/22/17 05:40 Cryptosporidium Exam (LAB) Pending White Blood Count 14.3 K/UL (4.8-10.8) #H Red Blood Count 4.06 M/UL (4.70-6.10) L Hemoglobin 13.9 G/DL (14.2-18.0) L Hematocrit 41.6 % (42.0-52.0) L Mean Corpuscular Volume 103 FL (80-99) H Mean Corpuscular Hemoglobin 34.2 PG (27.0-31.0) H Mean Corpuscular Hemoglobin Concent 33.3 G/DL (32.0-36.0) Red Cell Distribution Width 12.5 % (11.6-14.8) Platelet Count 259 K/UL (150-450) Mean Platelet Volume 7.1 FL (6.5-10.1) Neutrophils (%) (Auto) 78.7 % (45.0-75.0) H Lymphocytes (%) (Auto) 14.1 % (20.0-45.0) L Monocytes (%) (Auto) 5.0 % (1.0-10.0) Eosinophils (%) (Auto) 1.9 % (0.0-3.0) Basophils (%) (Auto) 0.4 % (0.0-2.0) Sodium Level 138 MMOL/L (136-145) Potassium Level 4.4 MMOL/L (3.5-5.1) Chloride Level 103 MMOL/L (98-107) Carbon Dioxide Level 29 MMOL/L (21-32) Anion Gap 7 mmol/L (5-15) Blood Urea Nitrogen 6 mg/dL (7-18) L Creatinine 0.8 MG/DL (0.55-1.30) Estimat Glomerular Filtration Rate > 60 mL/min (>60) Glucose Level 83 MG/DL (74-106) Calcium Level 8.7 MG/DL (8.5-10.1) Vitamin B12 Level 592 PG/ML (193-986) Folate 14.5 NG/ML (8.6-58.9) Intake and Output 12/21/17 12/22/17 19:00 07:00 Intake Total 1140 ml 1190 ml Balance 1140 ml 1190 ml Intake Oral 240 ml 240 ml IV Total 900 ml 950 ml # Voids 3 2 # Bowel Movements 2 Objective General Appearance: alert, moderate distress, thin EENT: PERRL/EOMI, normal ENT inspection Neck: non-tender, normal alignment, supple, normal inspection Cardiovascular: normal peripheral pulses, normal rate, regular rhythm, no gallop/murmur, no JVD Respiratory/Chest: chest wall non-tender, lungs clear, normal breath sounds, no respiratory distress, no accessory muscle use Abdomen: normal bowel sounds, non tender, soft, no organomegaly, no mass Extremities: normal range of motion, non-tender Neurologic: 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 (5) Left flank pain Assessment & Plan: CT urogram = NO renal calculus. ? cystitis vs enteritis. Continue levaquin (6) Leukocytosis, unspecified Assessment & Plan: resolving. Cont ertapenem per ID Status: not improved ELSIE ANGELES Dec 22, 2017 13:19
--- NOTE | 2017-12-22 15:33 | General Progress Note ---
Assessment/Plan Assessment/Plan GI: Plan Problems: (1) Cyclic vomiting syndrome (2) Abdominal pain (3) Anxiety Plan utox positive for marijuana symptomatic treatment at this time ppi daily, will add zantac qhs defer reglan, has drug interaction with SNRI zofran prn FLD, adv as tolerated fu labs, B12/folate Subjective Allergies: Coded Allergies: MORPHINE (Unverified Allergy, Intermediate, hives, 12/20/17) uncoded allergy, created coded allergy w/comments that was attached "hives" PENICILLINS (Verified Allergy, Unknown, 10/05/17) Subjective c/o some nausea c/o diarrhea c/o abd pain Objective Last 24 Hour Vital Signs Date Time Temp Pulse Resp B/P (MAP) Pulse Ox O2 Delivery O2 Flow Rate FiO2 12/22/17 12:55 97.9 63 20 107/68 96 12/22/17 08:00 97.2 67 20 108/75 95 12/22/17 08:00 97.2 68 18 105/60 97 Room Air 12/22/17 04:00 97.8 63 18 96/64 100 Room Air 12/22/17 00:00 97.5 70 18 112/65 100 Room Air 12/21/17 20:00 97.7 57 18 101/71 100 Room Air 12/21/17 17:31 97.1 12/21/17 16:00 97.3 68 18 99/66 98 Room Air Intake and Output 12/21/17 12/22/17 19:00 07:00 Intake Total 1140 ml 1190 ml Balance 1140 ml 1190 ml Intake Oral 240 ml 240 ml IV Total 900 ml 950 ml # Voids 3 2 # Bowel Movements 2 Laboratory Tests 12/21/17 22:00: Cryptosporidium Exam (LAB) [Pending] 12/22/17 05:40: White Blood Count 14.3#H, Red Blood Count 4.06L, Hemoglobin 13.9L, Hematocrit 41.6L, Mean Corpuscular Volume 103H, Mean Corpuscular Hemoglobin 34.2H, Mean Corpuscular Hemoglobin Concent 33.3, Red Cell Distribution Width 12.5, Platelet Count 259, Mean Platelet Volume 7.1, Neutrophils (%) (Auto) 78.7H, Lymphocytes ( %) (Auto) 14.1L, Monocytes (%) (Auto) 5.0, Eosinophils (%) (Auto) 1.9, Basophils (%) (Auto) 0.4, Sodium Level 138, Potassium Level 4.4, Chloride Level 103, Carbon Dioxide Level 29, Anion Gap 7, Blood Urea Nitrogen 6L, Creatinine 0.8, Estimat Glomerular Filtration Rate > 60, Glucose Level 83, Calcium Level 8.7, Vitamin B12 Level 592, Folate 14.5, HIV (1&2) Antibody Rapid Negative Height (Feet): 5 Height (Inches): 11.00 Weight (Pounds): 130 Objective NCAT supple CTA RRR Soft ND, Mild diffuse TTP no edema nonfocal ESTELLE TAI Dec 22, 2017 15:33
[2017-12-22] MEDS ORDERED: Tubing IV Secondary IV ONE (16:18)
[2017-12-22] MEDS ORDERED: D5 1/2NS 1000ml IV ONE (16:18)
[2017-12-22 16:42] VITALS: BP 118/74
[2017-12-22 20:00] VITALS: BP 118/78
[2017-12-22 22:51] LABS: APPEARANCE,URINE CLEAR; BILIRUBIN, URINE NEGATIVE (NEGATIVE); COLOR,URINE PALE YELLOW; GLUCOSE, URINE (UA) NEGATIVE (NEGATIVE); KETONES,URINE 1+ (NEGATIVE); LEUKOCYTE ESTERASE ,URINE 1+ (NEGATIVE); NITRITE,URINE NEGATIVE (NEGATIVE); PH,URINE 7 (4.5-8.0); PROTEIN,URINE NEGATIVE (NEGATIVE); UROBILINOGEN,URINE NORMAL MG/DL (0.0-1.0)
[2017-12-23] VITALS: BP 108/72
[2017-12-23] MEDS: LORazepam Inj 2mg/ml 1ml IV PRN ×5 (02:59→23:14)
[2017-12-23 04:00] VITALS: BP 106/65
[2017-12-23] MEDS: D5 1/2NS 1,000 ML IV SCH ×2 (05:40→21:39)
[2017-12-23 08:00] VITALS: BP 126/75
[2017-12-23 08:01] LABS: BASOPHILS % (AUTO) 0.4 % (0.0-2.0); EOSINOPHILS % (AUTO) 1.3 % (0.0-3.0); HEMATOCRIT 42.5 % (42.0-52.0); HEMOGLOBIN 14.1 G/DL (14.2-18.0); LYMPHOCYTES % (AUTO) 16.3 % (20.0-45.0); MEAN CORPUSCULAR VOLUME 102 FL (80-99); MONOCYTES % (AUTO) 6.6 % (1.0-10.0); NEUTROPHILS % (AUTO) 75.4 % (45.0-75.0); PLATELET COUNT 269 K/UL (150-450); RED BLOOD COUNT 4.17 M/UL (4.70-6.10); RED CELL DISTRIBUTION WIDTH 12.1 % (11.6-14.8); WHITE BLOOD COUNT 10.9 K/UL (4.8-10.8)
[2017-12-23 08:22] LABS: ANION GAP 9 mmol/L (5-15); BLOOD UREA NITROGEN 6 mg/dL (7-18); CALCIUM 8.7 MG/DL (8.5-10.1); CARBON DIOXIDE 26 MMOL/L (21-32); CHLORIDE 102 MMOL/L (98-107); CREATININE 0.7 MG/DL (0.55-1.30); POTASSIUM 3.7 MMOL/L (3.5-5.1); SODIUM 136 MMOL/L (136-145)
[2017-12-23] MEDS: Spironolactone 50mg tab ORAL SCH ×2 (08:35→17:41)
[2017-12-23] MEDS: Pantoprazole Inj IVP SCH (08:36)
[2017-12-23] MEDS: Heparin 5000 units/ml inj SUBQ SCH ×2 (08:38→21:00)
--- NOTE | 2017-12-23 10:51 | Pulmonology Progress Note ---
Assessment/Plan Problems: (1) Infectious enteritis (2) Hx of appendectomy (3) Abdominal pain Assessment/Plan wbc lower stool pending check cultures symptomatic treatment Psych evaluation pain is better Subjective ROS Limited/Unobtainable: No Interval Events: late note 12/22 Allergies: Coded Allergies: MORPHINE (Unverified Allergy, Intermediate, hives, 12/20/17) uncoded allergy, created coded allergy w/comments that was attached "hives" PENICILLINS (Verified Allergy, Unknown, 10/05/17) Objective Last 24 Hour Vital Signs Date Time Temp Pulse Resp B/P (MAP) Pulse Ox O2 Delivery O2 Flow Rate FiO2 12/23/17 09:55 97.1 12/23/17 08:00 97.1 70 20 126/75 98 Room Air 12/23/17 04:00 97.8 75 20 106/65 96 12/23/17 00:00 97.9 69 21 108/72 100 12/22/17 20:00 98.0 78 20 118/78 98 12/22/17 16:42 96.4 79 20 118/74 97 12/22/17 12:55 97.9 63 20 107/68 96 Intake and Output 12/22/17 12/23/17 19:00 07:00 Intake Total 970 ml 875 ml Balance 970 ml 875 ml Intake Oral 320 ml IV Total 650 ml 875 ml # Voids 8 2 # Bowel Movements 1 General Appearance: WD/WN HEENT: normocephalic, anicteric Respiratory/Chest: chest wall non-tender, normal breath sounds Cardiovascular: normal peripheral pulses, normal rate Abdomen: normal bowel sounds, soft, non tender Extremities: no cyanosis Skin: no rash Microbiology Date/Time Source Procedure Growth Status 12/21/17 22:00 Stool Stool Culture - Preliminary NORMAL FECAL JANET. Resulted Laboratory Tests 12/22/17 22:30: Urine Color Pale yellow, Urine Appearance Clear, Urine pH 7, Urine Specific [place] 1.010, Urine Protein Negative, Urine Glucose (UA) Negative, Urine Ketones 1+H, Urine Occult Blood Negative, Urine Nitrite Negative, Urine Bilirubin Negative, Urine Urobilinogen Normal, Urine Leukocyte Esterase 1+H, Urine RBC 2-4H, Urine WBC 5-10H, Urine Squamous Epithelial Cells Few, Urine Bacteria Few, Urine Yeast 12/23/17 06:28: White Blood Count 10.9H, Red Blood Count 4.17L, Hemoglobin 14.1L, Hematocrit 42.5, Mean Corpuscular Volume 102H, Mean Corpuscular Hemoglobin 33.7H, Mean Corpuscular Hemoglobin Concent 33.1, Red Cell Distribution Width 12.1, Platelet Count 269, Mean Platelet Volume 7.3, Neutrophils (%) (Auto) 75.4H, Lymphocytes ( %) (Auto) 16.3L, Monocytes (%) (Auto) 6.6, Eosinophils (%) (Auto) 1.3, Basophils (%) (Auto) 0.4, Sodium Level 136, Potassium Level 3.7, Chloride Level 102, Carbon Dioxide Level 26, Anion Gap 9, Blood Urea Nitrogen 6L, Creatinine 0.7, Estimat Glomerular Filtration Rate > 60, Glucose Level 95, Calcium Level 8.7 Current Medications Medications (Trade) Dose Ordered Sig/Brandon Route PRN Reason Start Time Stop Time Status Last Admin Dose Admin Acetaminophen (Tylenol) 650 mg Q4H PRN ORAL fever 12/20/17 12:00 01/19/18 11:59 Al Hydroxide/Mg Hydroxide (Mylanta II) 30 ml Q6H PRN ORAL dyspepsia 12/20/17 12:00 01/19/18 11:59 Dextrose (Dextrose 50%) STAT PRN IV Hypoglycemia 12/20/17 12:00 01/19/18 11:59 Dextrose/Sodium Chloride 1,000 ml @ 75 mls/hr [id number] IV 12/20/17 13:00 01/19/18 12:59 12/23/17 05:40 Diphenhydramine HCl (Benadryl) 25 mg Q6H PRN ORAL Itching/Pruritis 12/20/17 12:00 01/19/18 11:59 Escitalopram Oxalate (Lexapro) 10 mg DAILY ORAL 12/21/17 11:00 01/20/18 10:59 12/23/17 08:35 Famotidine (Pepcid) 20 mg QHS ORAL 12/21/17 21:00 01/20/18 20:59 12/22/17 21:44 Heparin Sodium (Porcine) (Heparin 5000 units/ml) 5,000 units EVERY 12 HOURS SUBQ 12/20/17 21:00 01/19/18 20:59 Hydromorphone HCl (Dilaudid) 1 mg Q3H PRN IVP Moderate Pain (Pain Scale 4-6) 12/21/17 17:00 12/28/17 16:59 Hydromorphone HCl (Dilaudid) 2 mg Q3H PRN IVP Severe Pain (Pain Scale 7-10) 12/21/17 17:00 12/28/17 16:59 12/23/17 09:25 Levofloxacin 100 ml @ 100 mls/hr Q24H IVPB 12/22/17 13:00 12/29/17 12:59 12/22/17 12:57 Lorazepam (Ativan 2mg/ml 1ml) 1 mg Q4H PRN IV For Anxiety 12/20/17 15:00 12/27/17 14:59 12/23/17 07:25 Metronidazole 100 ml @ 100 mls/hr Q8HR IVPB 12/22/17 14:00 12/29/17 13:59 12/23/17 05:33 Nitroglycerin (Ntg) 0.4 mg Q5M X 3 DOSES PRN SL Prn Chest Pain 12/20/17 12:00 01/19/18 11:59 Ondansetron HCl (Zofran) 4 mg Q6H PRN IVP Nausea & Vomiting 12/20/17 12:00 01/19/18 11:59 12/23/17 05:47 Pantoprazole (Protonix) 40 mg DAILY IVP 12/21/17 09:00 01/20/18 08:59 12/23/17 08:36 Polyethylene Glycol (Miralax) 17 gm HSPRN PRN ORAL Constipation 12/20/17 12:00 01/19/18 11:59 Spironolactone (Aldactone) 100 mg BID ORAL 12/20/17 22:00 01/19/18 21:59 12/23/17 08:35 Temazepam (Restoril) 15 mg HSPRN PRN ORAL Insomnia 12/20/17 12:00 12/27/17 11:59 JESSICA VERNON Dec 23, 2017 10:51
--- NOTE | 2017-12-23 10:52 | Pulmonology Progress Note ---
Assessment/Plan Problems: (1) Infectious enteritis (2) Hx of appendectomy (3) Abdominal pain Assessment/Plan wbc lower stool pending check cultures symptomatic treatment Psych evaluation pain is better dc planning none of the cultures are back Subjective ROS Limited/Unobtainable: No Constitutional: Reports: no symptoms HEENT: Repors: no symptoms Allergies: Coded Allergies: MORPHINE (Unverified Allergy, Intermediate, hives, 12/20/17) uncoded allergy, created coded allergy w/comments that was attached "hives" PENICILLINS (Verified Allergy, Unknown, 10/05/17) Objective Last 24 Hour Vital Signs Date Time Temp Pulse Resp B/P (MAP) Pulse Ox O2 Delivery O2 Flow Rate FiO2 12/23/17 09:55 97.1 12/23/17 08:00 97.1 70 20 126/75 98 Room Air 12/23/17 04:00 97.8 75 20 106/65 96 12/23/17 00:00 97.9 69 21 108/72 100 12/22/17 20:00 98.0 78 20 118/78 98 12/22/17 16:42 96.4 79 20 118/74 97 12/22/17 12:55 97.9 63 20 107/68 96 Intake and Output 12/22/17 12/23/17 19:00 07:00 Intake Total 970 ml 875 ml Balance 970 ml 875 ml Intake Oral 320 ml IV Total 650 ml 875 ml # Voids 8 2 # Bowel Movements 1 General Appearance: cachetic HEENT: normocephalic, atraumatic Respiratory/Chest: chest wall non-tender, normal breath sounds Cardiovascular: normal peripheral pulses, normal rate Abdomen: normal bowel sounds, soft, non tender Extremities: no clubbing Skin: no lesions Microbiology Date/Time Source Procedure Growth Status 12/21/17 22:00 Stool Stool Culture - Preliminary NORMAL FECAL JANET. Resulted Laboratory Tests 12/22/17 22:30: Urine Color Pale yellow, Urine Appearance Clear, Urine pH 7, Urine Specific [place] 1.010, Urine Protein Negative, Urine Glucose (UA) Negative, Urine Ketones 1+H, Urine Occult Blood Negative, Urine Nitrite Negative, Urine Bilirubin Negative, Urine Urobilinogen Normal, Urine Leukocyte Esterase 1+H, Urine RBC 2-4H, Urine WBC 5-10H, Urine Squamous Epithelial Cells Few, Urine Bacteria Few, Urine Yeast 12/23/17 06:28: White Blood Count 10.9H, Red Blood Count 4.17L, Hemoglobin 14.1L, Hematocrit 42.5, Mean Corpuscular Volume 102H, Mean Corpuscular Hemoglobin 33.7H, Mean Corpuscular Hemoglobin Concent 33.1, Red Cell Distribution Width 12.1, Platelet Count 269, Mean Platelet Volume 7.3, Neutrophils (%) (Auto) 75.4H, Lymphocytes ( %) (Auto) 16.3L, Monocytes (%) (Auto) 6.6, Eosinophils (%) (Auto) 1.3, Basophils (%) (Auto) 0.4, Sodium Level 136, Potassium Level 3.7, Chloride Level 102, Carbon Dioxide Level 26, Anion Gap 9, Blood Urea Nitrogen 6L, Creatinine 0.7, Estimat Glomerular Filtration Rate > 60, Glucose Level 95, Calcium Level 8.7 Current Medications Medications (Trade) Dose Ordered Sig/Brandon Route PRN Reason Start Time Stop Time Status Last Admin Dose Admin Acetaminophen (Tylenol) 650 mg Q4H PRN ORAL fever 12/20/17 12:00 01/19/18 11:59 Al Hydroxide/Mg Hydroxide (Mylanta II) 30 ml Q6H PRN ORAL dyspepsia 12/20/17 12:00 01/19/18 11:59 Dextrose (Dextrose 50%) STAT PRN IV Hypoglycemia 12/20/17 12:00 01/19/18 11:59 Dextrose/Sodium Chloride 1,000 ml @ 75 mls/hr [id number] IV 12/20/17 13:00 01/19/18 12:59 12/23/17 05:40 Diphenhydramine HCl (Benadryl) 25 mg Q6H PRN ORAL Itching/Pruritis 12/20/17 12:00 01/19/18 11:59 Escitalopram Oxalate (Lexapro) 10 mg DAILY ORAL 12/21/17 11:00 01/20/18 10:59 12/23/17 08:35 Famotidine (Pepcid) 20 mg QHS ORAL 12/21/17 21:00 01/20/18 20:59 12/22/17 21:44 Heparin Sodium (Porcine) (Heparin 5000 units/ml) 5,000 units EVERY 12 HOURS SUBQ 12/20/17 21:00 01/19/18 20:59 Hydromorphone HCl (Dilaudid) 1 mg Q3H PRN IVP Moderate Pain (Pain Scale 4-6) 12/21/17 17:00 12/28/17 16:59 Hydromorphone HCl (Dilaudid) 2 mg Q3H PRN IVP Severe Pain (Pain Scale 7-10) 12/21/17 17:00 12/28/17 16:59 12/23/17 09:25 Levofloxacin 100 ml @ 100 mls/hr Q24H IVPB 12/22/17 13:00 12/29/17 12:59 12/22/17 12:57 Lorazepam (Ativan 2mg/ml 1ml) 1 mg Q4H PRN IV For Anxiety 12/20/17 15:00 12/27/17 14:59 12/23/17 07:25 Metronidazole 100 ml @ 100 mls/hr Q8HR IVPB 12/22/17 14:00 12/29/17 13:59 12/23/17 05:33 Nitroglycerin (Ntg) 0.4 mg Q5M X 3 DOSES PRN SL Prn Chest Pain 12/20/17 12:00 01/19/18 11:59 Ondansetron HCl (Zofran) 4 mg Q6H PRN IVP Nausea & Vomiting 12/20/17 12:00 01/19/18 11:59 12/23/17 05:47 Pantoprazole (Protonix) 40 mg DAILY IVP 12/21/17 09:00 01/20/18 08:59 12/23/17 08:36 Polyethylene Glycol (Miralax) 17 gm HSPRN PRN ORAL Constipation 12/20/17 12:00 01/19/18 11:59 Spironolactone (Aldactone) 100 mg BID ORAL 12/20/17 22:00 01/19/18 21:59 12/23/17 08:35 Temazepam (Restoril) 15 mg HSPRN PRN ORAL Insomnia 12/20/17 12:00 12/27/17 11:59 JESSICA VERNON Dec 23, 2017 10:52
[2017-12-23 12:00] VITALS: BP 112/72
--- NOTE | 2017-12-23 13:59 | Internal Med Progress Note ---
Subjective Date of Service: Dec 23, 2017 Physician Name Elsie Angeles Attending Physician Guillermo Blakely MD Current Medications Medications (Trade) Dose Ordered Sig/Brandon Route PRN Reason Start Time Stop Time Status Last Admin Dose Admin Acetaminophen (Tylenol) 650 mg Q4H PRN ORAL fever 12/20/17 12:00 01/19/18 11:59 Al Hydroxide/Mg Hydroxide (Mylanta II) 30 ml Q6H PRN ORAL dyspepsia 12/20/17 12:00 01/19/18 11:59 Daptomycin 350 mg/ Sodium Chloride 55 ml @ 110 mls/hr Q24H IV 12/23/17 15:00 12/30/17 14:59 Dextrose (Dextrose 50%) STAT PRN IV Hypoglycemia 12/20/17 12:00 01/19/18 11:59 Dextrose/Sodium Chloride 1,000 ml @ 75 mls/hr [id number] IV 12/20/17 13:00 01/19/18 12:59 12/23/17 05:40 Diphenhydramine HCl (Benadryl) 25 mg Q6H PRN ORAL Itching/Pruritis 12/20/17 12:00 01/19/18 11:59 Escitalopram Oxalate (Lexapro) 10 mg DAILY ORAL 12/21/17 11:00 01/20/18 10:59 12/23/17 08:35 Famotidine (Pepcid) 20 mg QHS ORAL 12/21/17 21:00 01/20/18 20:59 12/22/17 21:44 Heparin Sodium (Porcine) (Heparin 5000 units/ml) 5,000 units EVERY 12 HOURS SUBQ 12/20/17 21:00 01/19/18 20:59 Hydromorphone HCl (Dilaudid) 1 mg Q3H PRN IVP Moderate Pain (Pain Scale 4-6) 12/21/17 17:00 12/28/17 16:59 Hydromorphone HCl (Dilaudid) 2 mg Q3H PRN IVP Severe Pain (Pain Scale 7-10) 12/21/17 17:00 12/28/17 16:59 12/23/17 12:33 Levofloxacin 100 ml @ 100 mls/hr Q24H IVPB 12/22/17 13:00 12/29/17 12:59 12/23/17 12:33 Lorazepam (Ativan 2mg/ml 1ml) 1 mg Q4H PRN IV For Anxiety 12/20/17 15:00 12/27/17 14:59 12/23/17 07:25 Metronidazole 100 ml @ 100 mls/hr Q8HR IVPB 12/22/17 14:00 12/29/17 13:59 12/23/17 05:33 Nitroglycerin (Ntg) 0.4 mg Q5M X 3 DOSES PRN SL Prn Chest Pain 12/20/17 12:00 01/19/18 11:59 Ondansetron HCl (Zofran) 4 mg Q6H PRN IVP Nausea & Vomiting 12/20/17 12:00 01/19/18 11:59 12/23/17 05:47 Pantoprazole (Protonix) 40 mg DAILY IVP 12/21/17 09:00 01/20/18 08:59 12/23/17 08:36 Polyethylene Glycol (Miralax) 17 gm HSPRN PRN ORAL Constipation 12/20/17 12:00 01/19/18 11:59 Spironolactone (Aldactone) 100 mg BID ORAL 12/20/17 22:00 01/19/18 21:59 12/23/17 08:35 Temazepam (Restoril) 15 mg HSPRN PRN ORAL Insomnia 12/20/17 12:00 12/27/17 11:59 Allergies: Coded Allergies: MORPHINE (Unverified Allergy, Intermediate, hives, 12/20/17) uncoded allergy, created coded allergy w/comments that was attached "hives" PENICILLINS (Verified Allergy, Unknown, 10/05/17) ROS Limited/Unobtainable: No Constitutional: Reports: no symptoms HEENT: Reports: no symptoms Cardiovascular: Reports: no symptoms Respiratory: Reports: no symptoms Gastrointestinal/Abdominal: Reports: nausea, vomiting Genitourinary: Reports: no symptoms Neurologic/Psychiatric: Reports: no symptoms Subjective 32 YO M admitted with abdominal pain. Now hematuria. Cover for Patience Tang-Dr Blakely. Objective Last Vital Signs Date Time Temp Pulse Resp B/P (MAP) Pulse Ox O2 Delivery O2 Flow Rate FiO2 12/23/17 12:00 97.7 79 20 112/72 100 Room Air Laboratory Tests Test 12/22/17 22:30 12/23/17 06:28 Urine Color Pale yellow Urine Appearance Clear Urine pH 7 (4.5-8.0) Urine Specific [place] 1.010 (1.005-1.035) Urine Protein Negative (NEGATIVE) Urine Glucose (UA) Negative (NEGATIVE) Urine Ketones 1+ (NEGATIVE) H Urine Occult Blood Negative (NEGATIVE) Urine Nitrite Negative (NEGATIVE) Urine Bilirubin Negative (NEGATIVE) Urine Urobilinogen Normal MG/DL (0.0-1.0) Urine Leukocyte Esterase 1+ (NEGATIVE) H Urine RBC 2-4 /HPF (0 - 0) H Urine WBC 5-10 /HPF (0 - 0) H Urine Squamous Epithelial Cells Few /LPF (NONE/OCC) Urine Bacteria Few /HPF (NONE) Urine Yeast /HPF (NONE) White Blood Count 10.9 K/UL (4.8-10.8) H Red Blood Count 4.17 M/UL (4.70-6.10) L Hemoglobin 14.1 G/DL (14.2-18.0) L Hematocrit 42.5 % (42.0-52.0) Mean Corpuscular Volume 102 FL (80-99) H Mean Corpuscular Hemoglobin 33.7 PG (27.0-31.0) H Mean Corpuscular Hemoglobin Concent 33.1 G/DL (32.0-36.0) Red Cell Distribution Width 12.1 % (11.6-14.8) Platelet Count 269 K/UL (150-450) Mean Platelet Volume 7.3 FL (6.5-10.1) Neutrophils (%) (Auto) 75.4 % (45.0-75.0) H Lymphocytes (%) (Auto) 16.3 % (20.0-45.0) L Monocytes (%) (Auto) 6.6 % (1.0-10.0) Eosinophils (%) (Auto) 1.3 % (0.0-3.0) Basophils (%) (Auto) 0.4 % (0.0-2.0) Sodium Level 136 MMOL/L (136-145) Potassium Level 3.7 MMOL/L (3.5-5.1) Chloride Level 102 MMOL/L (98-107) Carbon Dioxide Level 26 MMOL/L (21-32) Anion Gap 9 mmol/L (5-15) Blood Urea Nitrogen 6 mg/dL (7-18) L Creatinine 0.7 MG/DL (0.55-1.30) Estimat Glomerular Filtration Rate > 60 mL/min (>60) Glucose Level 95 MG/DL (74-106) Calcium Level 8.7 MG/DL (8.5-10.1) Microbiology Date/Time Source Procedure Growth Status 12/22/17 11:48 Blood Blood Culture - Preliminary Resulted 12/21/17 22:00 Stool Stool Culture - Preliminary NORMAL FECAL JANET. Resulted Intake and Output 12/22/17 12/23/17 18:59 06:59 Intake Total 970 ml 875 ml Balance 970 ml 875 ml Intake Oral 320 ml IV Total 650 ml 875 ml # Voids 8 2 # Bowel Movements 1 Objective General Appearance: alert, moderate distress, thin EENT: PERRL/EOMI, normal ENT inspection Neck: non-tender, normal alignment, supple, normal inspection Cardiovascular: normal peripheral pulses, normal rate, regular rhythm, no gallop/murmur, no JVD Respiratory/Chest: chest wall non-tender, lungs clear, normal breath sounds, no respiratory distress, no accessory muscle use Abdomen: normal bowel sounds, non tender, soft, no organomegaly, no mass Extremities: normal range of motion, non-tender Neurologic: heddler tier II-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 (5) Left flank pain Assessment & Plan: CT urogram = NO renal calculus. ? cystitis vs enteritis. Continue levaquin (6) Leukocytosis, unspecified Assessment & Plan: resolving. Cont ertapenem per ID (7) Cyclic vomiting syndrome Assessment & Plan: May require Endoscopy-see GI note Status: not improved ELSIE ANGELES Dec 23, 2017 13:59
[2017-12-23] MEDS: DAPTOmycin 350 MG in NS 55 ML IV SCH (15:40)
[2017-12-23 15:53] VITALS: BP 113/67
--- NOTE | 2017-12-23 16:35 | General Progress Note ---
Assessment/Plan Assessment/Plan GI: Plan Problems: (1) Cyclic vomiting syndrome (2) Abdominal pain (3) Anxiety Recommendations Wean down narcotics symptomatic treatment at this time ppi daily, will add zantac qhs defer reglan, has drug interaction with SNRI zofran prn FLD, adv as tolerated fu labs, B12/folate Subjective Allergies: Coded Allergies: MORPHINE (Unverified Allergy, Intermediate, hives, 12/20/17) uncoded allergy, created coded allergy w/comments that was attached "hives" PENICILLINS (Verified Allergy, Unknown, 10/05/17) Subjective c/o abd pain c/o recurrent vomiting asking for dilaudid 2 mg q 3 hours advised may be contributing to vomiting Objective Last 24 Hour Vital Signs Date Time Temp Pulse Resp B/P (MAP) Pulse Ox O2 Delivery O2 Flow Rate FiO2 12/23/17 16:10 97.9 12/23/17 15:53 97.9 73 20 113/67 100 Room Air 12/23/17 12:00 97.7 79 20 112/72 100 Room Air 12/23/17 08:00 97.1 70 20 126/75 98 Room Air 12/23/17 04:00 97.8 75 20 106/65 96 12/23/17 00:00 97.9 69 21 108/72 100 12/22/17 20:00 98.0 78 20 118/78 98 12/22/17 16:42 96.4 79 20 118/74 97 Intake and Output 12/22/17 12/23/17 19:00 07:00 Intake Total 970 ml 875 ml Balance 970 ml 875 ml Intake Oral 320 ml IV Total 650 ml 875 ml # Voids 8 2 # Bowel Movements 1 Laboratory Tests 12/22/17 22:30: Urine Color Pale yellow, Urine Appearance Clear, Urine pH 7, Urine Specific [place] 1.010, Urine Protein Negative, Urine Glucose (UA) Negative, Urine Ketones 1+H, Urine Occult Blood Negative, Urine Nitrite Negative, Urine Bilirubin Negative, Urine Urobilinogen Normal, Urine Leukocyte Esterase 1+H, Urine RBC 2-4H, Urine WBC 5-10H, Urine Squamous Epithelial Cells Few, Urine Bacteria Few, Urine Yeast 12/23/17 06:28: White Blood Count 10.9H, Red Blood Count 4.17L, Hemoglobin 14.1L, Hematocrit 42.5, Mean Corpuscular Volume 102H, Mean Corpuscular Hemoglobin 33.7H, Mean Corpuscular Hemoglobin Concent 33.1, Red Cell Distribution Width 12.1, Platelet Count 269, Mean Platelet Volume 7.3, Neutrophils (%) (Auto) 75.4H, Lymphocytes ( %) (Auto) 16.3L, Monocytes (%) (Auto) 6.6, Eosinophils (%) (Auto) 1.3, Basophils (%) (Auto) 0.4, Sodium Level 136, Potassium Level 3.7, Chloride Level 102, Carbon Dioxide Level 26, Anion Gap 9, Blood Urea Nitrogen 6L, Creatinine 0.7, Estimat Glomerular Filtration Rate > 60, Glucose Level 95, Calcium Level 8.7 Height (Feet): 5 Height (Inches): 11.00 Weight (Pounds): 130 Objective NCAT supple CTA RRR Soft ND, Mild diffuse TTP no edema nonfocal ESTELLE TAI Dec 23, 2017 16:35
[2017-12-23 20:00] VITALS: BP 118/79
[2017-12-24 04:00] VITALS: BP 96/59
[2017-12-24] MEDS: LORazepam Inj 2mg/ml 1ml IV PRN ×3 (05:38→18:41)
[2017-12-24] MEDS: Spironolactone 50mg tab ORAL SCH ×2 (07:54→17:13)
[2017-12-24] MEDS: Pantoprazole Inj IVP SCH (07:54)
[2017-12-24] MEDS: Heparin 5000 units/ml inj SUBQ SCH ×2 (07:59→20:36)
[2017-12-24 08:00] VITALS: BP 114/75
[2017-12-24 08:19] LABS: BASOPHILS % (AUTO) 0.6 % (0.0-2.0); HEMATOCRIT 43.2 % (42.0-52.0); HEMOGLOBIN 14.5 G/DL (14.2-18.0); LYMPHOCYTES % (AUTO) 20.6 % (20.0-45.0); MEAN CORPUSCULAR VOLUME 102 FL (80-99); MONOCYTES % (AUTO) 7.2 % (1.0-10.0); NEUTROPHILS % (AUTO) 69.6 % (45.0-75.0); PLATELET COUNT 281 K/UL (150-450); RED BLOOD COUNT 4.26 M/UL (4.70-6.10); RED CELL DISTRIBUTION WIDTH 11.9 % (11.6-14.8); WHITE BLOOD COUNT 12.6 K/UL (4.8-10.8)
[2017-12-24 08:51] LABS: ALANINE AMINOTRANSFERASE 10 U/L (12-78); ALBUMIN/GLOBULIN RATIO 1.2 (1.0-2.7); ALKALINE PHOSPHATASE 64 U/L (46-116); ANION GAP 11 mmol/L (5-15); ASPARTATE AMINO TRANSFERASE 17 U/L (15-37); BILIRUBIN,TOTAL 0.4 MG/DL (0.2-1.0); BLOOD UREA NITROGEN 9 mg/dL (7-18); CARBON DIOXIDE 24 MMOL/L (21-32); CHLORIDE 102 MMOL/L (98-107); CREATININE 0.8 MG/DL (0.55-1.30); PHOSPHORUS 3.2 MG/DL (2.5-4.9); POTASSIUM 4.3 MMOL/L (3.5-5.1); SODIUM 137 MMOL/L (136-145)
--- NOTE | 2017-12-24 10:14 | GI Progress Note ---
Assessment/Plan Problems: (1) Nausea & vomiting ICD Codes: R11.2 - Nausea with vomiting, unspecified SNOMED: 53518692 (2) Cyclic vomiting syndrome ICD Codes: G43.A0 - Cyclical vomiting, not intractable SNOMED: 73238777 (3) Anxiety ICD Codes: F41.9 - Anxiety disorder, unspecified SNOMED: 38087367 (4) Abdominal pain ICD Codes: R10.9 - Unspecified abdominal pain SNOMED: 05020463 Status: stable Status Narrative Discussed with Dr. Kahn. Assessment/Plan Wean down narcotics symptomatic treatment at this time ppi daily, will add zantac qhs defer reglan, has drug interaction with SNRI zofran prn adv to regular diet today fu labs Subjective Subjective generalized pain Objective Last 24 Hour Vital Signs Date Time Temp Pulse Resp B/P (MAP) Pulse Ox O2 Delivery O2 Flow Rate FiO2 12/24/17 08:00 97.4 83 20 114/75 96 12/24/17 04:00 97.7 72 20 96/59 98 12/23/17 20:00 98.1 71 20 118/79 96 12/23/17 16:10 97.9 12/23/17 15:53 97.9 73 20 113/67 100 Room Air 12/23/17 12:00 97.7 79 20 112/72 100 Room Air Intake and Output 12/23/17 12/24/17 19:00 07:00 Intake Total 1080 ml 1450 ml Balance 1080 ml 1450 ml Intake Oral 300 ml IV Total 780 ml 950 ml Other 500 ml # Voids 4 3 Laboratory Tests Test 12/24/17 07:10 White Blood Count 12.6 K/UL (4.8-10.8) H Red Blood Count 4.26 M/UL (4.70-6.10) L Hemoglobin 14.5 G/DL (14.2-18.0) Hematocrit 43.2 % (42.0-52.0) Mean Corpuscular Volume 102 FL (80-99) H Mean Corpuscular Hemoglobin 34.0 PG (27.0-31.0) H Mean Corpuscular Hemoglobin Concent 33.5 G/DL (32.0-36.0) Red Cell Distribution Width 11.9 % (11.6-14.8) Platelet Count 281 K/UL (150-450) Mean Platelet Volume 7.2 FL (6.5-10.1) Neutrophils (%) (Auto) 69.6 % (45.0-75.0) Lymphocytes (%) (Auto) 20.6 % (20.0-45.0) Monocytes (%) (Auto) 7.2 % (1.0-10.0) Eosinophils (%) (Auto) 2.0 % (0.0-3.0) Basophils (%) (Auto) 0.6 % (0.0-2.0) Erythrocyte Sedimentation Rate 3 MM/HR (0-15) Sodium Level 137 MMOL/L (136-145) Potassium Level 4.3 MMOL/L (3.5-5.1) Chloride Level 102 MMOL/L (98-107) Carbon Dioxide Level 24 MMOL/L (21-32) Anion Gap 11 mmol/L (5-15) Blood Urea Nitrogen 9 mg/dL (7-18) Creatinine 0.8 MG/DL (0.55-1.30) Estimat Glomerular Filtration Rate > 60 mL/min (>60) Glucose Level 81 MG/DL (74-106) Calcium Level 9.0 MG/DL (8.5-10.1) Phosphorus Level 3.2 MG/DL (2.5-4.9) Magnesium Level 1.6 MG/DL (1.8-2.4) L Total Bilirubin 0.4 MG/DL (0.2-1.0) Aspartate Amino Transf (AST/SGOT) 17 U/L (15-37) Alanine Aminotransferase (ALT/SGPT) 10 U/L (12-78) L Alkaline Phosphatase 64 U/L (46-116) C-Reactive Protein, Quantitative < 0.4 mg/dL (0.00-0.90) Total Protein 7.3 G/DL (6.4-8.2) Albumin 4.0 G/DL (3.4-5.0) Globulin 3.3 g/dL Albumin/Globulin Ratio 1.2 (1.0-2.7) Height (Feet): 5 Height (Inches): 11.00 Weight (Pounds): 130 General Appearance: WD/WN, no apparent distress, alert, thin Cardiovascular: normal rate Respiratory/Chest: normal breath sounds, no respiratory distress Abdominal Exam: normal bowel sounds, non tender, soft Extremities: normal range of motion, non-tender Elise Mosqueda N.P. Dec 24, 2017 10:14
[2017-12-24] MEDS: D5 1/2NS 1,000 ML IV SCH ×2 (10:20→15:51)
--- NOTE | 2017-12-24 12:16 | Internal Med Progress Note ---
Subjective Date of Service: Dec 24, 2017 Physician Name Elsie Angeles Attending Physician Guillermo Blakely MD Current Medications Medications (Trade) Dose Ordered Sig/Brandon Route PRN Reason Start Time Stop Time Status Last Admin Dose Admin Acetaminophen (Tylenol) 650 mg Q4H PRN ORAL fever 12/20/17 12:00 01/19/18 11:59 Al Hydroxide/Mg Hydroxide (Mylanta II) 30 ml Q6H PRN ORAL dyspepsia 12/20/17 12:00 01/19/18 11:59 Daptomycin 350 mg/ Sodium Chloride 55 ml @ 110 mls/hr Q24H IV 12/23/17 15:00 12/30/17 14:59 12/23/17 15:40 Dextrose (Dextrose 50%) STAT PRN IV Hypoglycemia 12/20/17 12:00 01/19/18 11:59 Dextrose/Sodium Chloride 1,000 ml @ 75 mls/hr [id number] IV 12/20/17 13:00 01/19/18 12:59 12/23/17 21:39 Diphenhydramine HCl (Benadryl) 25 mg Q6H PRN ORAL Itching/Pruritis 12/20/17 12:00 01/19/18 11:59 Escitalopram Oxalate (Lexapro) 10 mg DAILY ORAL 12/21/17 11:00 01/20/18 10:59 12/24/17 07:54 Famotidine (Pepcid) 20 mg QHS ORAL 12/21/17 21:00 01/20/18 20:59 12/23/17 21:39 Heparin Sodium (Porcine) (Heparin 5000 units/ml) 5,000 units EVERY 12 HOURS SUBQ 12/20/17 21:00 01/19/18 20:59 Hydromorphone HCl (Dilaudid) 1 mg Q3H PRN IVP Moderate Pain (Pain Scale 4-6) 12/21/17 17:00 12/28/17 16:59 Hydromorphone HCl (Dilaudid) 2 mg Q3H PRN IVP Severe Pain (Pain Scale 7-10) 12/21/17 17:00 12/28/17 16:59 12/24/17 10:36 Levofloxacin 100 ml @ 100 mls/hr Q24H IVPB 12/22/17 13:00 12/29/17 12:59 12/23/17 12:33 Lorazepam (Ativan 2mg/ml 1ml) 1 mg Q4H PRN IV For Anxiety 12/20/17 15:00 12/27/17 14:59 12/24/17 05:38 Magnesium Oxide (Mag-Ox 400mg) 400 mg THREE TIMES A DAY ORAL 12/24/17 13:00 12/27/17 12:59 Metronidazole 100 ml @ 100 mls/hr Q8HR IVPB 12/22/17 14:00 12/29/17 13:59 12/24/17 05:38 Nitroglycerin (Ntg) 0.4 mg Q5M X 3 DOSES PRN SL Prn Chest Pain 12/20/17 12:00 01/19/18 11:59 Ondansetron HCl (Zofran) 4 mg Q6H PRN IVP Nausea & Vomiting 12/20/17 12:00 01/19/18 11:59 12/24/17 07:54 Pantoprazole (Protonix) 40 mg DAILY IVP 12/21/17 09:00 01/20/18 08:59 12/24/17 07:54 Polyethylene Glycol (Miralax) 17 gm HSPRN PRN ORAL Constipation 12/20/17 12:00 01/19/18 11:59 Spironolactone (Aldactone) 100 mg BID ORAL 12/20/17 22:00 01/19/18 21:59 12/24/17 07:54 Temazepam (Restoril) 15 mg HSPRN PRN ORAL Insomnia 12/20/17 12:00 12/27/17 11:59 Allergies: Coded Allergies: MORPHINE (Unverified Allergy, Intermediate, hives, 12/20/17) uncoded allergy, created coded allergy w/comments that was attached "hives" PENICILLINS (Verified Allergy, Unknown, 10/05/17) ROS Limited/Unobtainable: No Constitutional: Reports: no symptoms HEENT: Reports: no symptoms Cardiovascular: Reports: no symptoms Respiratory: Reports: no symptoms Gastrointestinal/Abdominal: Reports: abdominal pain, nausea, vomiting Neurologic/Psychiatric: Reports: no symptoms Subjective 32 YO M admitted with abdominal pain. Now cyclic vomiting syndrome. Cover for Int [facility]-Dr Blakely. Objective Last Vital Signs Date Time Temp Pulse Resp B/P (MAP) Pulse Ox O2 Delivery O2 Flow Rate FiO2 12/24/17 08:00 97.4 83 20 114/75 96 12/23/17 15:53 Room Air Laboratory Tests Test 12/24/17 07:10 White Blood Count 12.6 K/UL (4.8-10.8) H Red Blood Count 4.26 M/UL (4.70-6.10) L Hemoglobin 14.5 G/DL (14.2-18.0) Hematocrit 43.2 % (42.0-52.0) Mean Corpuscular Volume 102 FL (80-99) H Mean Corpuscular Hemoglobin 34.0 PG (27.0-31.0) H Mean Corpuscular Hemoglobin Concent 33.5 G/DL (32.0-36.0) Red Cell Distribution Width 11.9 % (11.6-14.8) Platelet Count 281 K/UL (150-450) Mean Platelet Volume 7.2 FL (6.5-10.1) Neutrophils (%) (Auto) 69.6 % (45.0-75.0) Lymphocytes (%) (Auto) 20.6 % (20.0-45.0) Monocytes (%) (Auto) 7.2 % (1.0-10.0) Eosinophils (%) (Auto) 2.0 % (0.0-3.0) Basophils (%) (Auto) 0.6 % (0.0-2.0) Erythrocyte Sedimentation Rate 3 MM/HR (0-15) Sodium Level 137 MMOL/L (136-145) Potassium Level 4.3 MMOL/L (3.5-5.1) Chloride Level 102 MMOL/L (98-107) Carbon Dioxide Level 24 MMOL/L (21-32) Anion Gap 11 mmol/L (5-15) Blood Urea Nitrogen 9 mg/dL (7-18) Creatinine 0.8 MG/DL (0.55-1.30) Estimat Glomerular Filtration Rate > 60 mL/min (>60) Glucose Level 81 MG/DL (74-106) Calcium Level 9.0 MG/DL (8.5-10.1) Phosphorus Level 3.2 MG/DL (2.5-4.9) Magnesium Level 1.6 MG/DL (1.8-2.4) L Total Bilirubin 0.4 MG/DL (0.2-1.0) Aspartate Amino Transf (AST/SGOT) 17 U/L (15-37) Alanine Aminotransferase (ALT/SGPT) 10 U/L (12-78) L Alkaline Phosphatase 64 U/L (46-116) C-Reactive Protein, Quantitative < 0.4 mg/dL (0.00-0.90) Total Protein 7.3 G/DL (6.4-8.2) Albumin 4.0 G/DL (3.4-5.0) Globulin 3.3 g/dL Albumin/Globulin Ratio 1.2 (1.0-2.7) Microbiology Date/Time Source Procedure Growth Status 12/22/17 11:48 Blood Blood Culture - Preliminary Resulted 12/22/17 11:42 Blood Blood Culture - Preliminary NO GROWTH AFTER 24 HOURS Resulted 12/21/17 22:00 Stool Stool Culture - Preliminary NORMAL FECAL JANET. Resulted 12/22/17 22:30 Urine,Clean Catch Urine Culture - Preliminary NO GROWTH AFTER 24 HOURS Resulted Intake and Output 12/23/17 12/24/17 19:00 07:00 Intake Total 1080 ml 1450 ml Balance 1080 ml 1450 ml Intake Oral 300 ml IV Total 780 ml 950 ml Other 500 ml # Voids 4 3 Objective General Appearance: alert, moderate distress, thin EENT: PERRL/EOMI, normal ENT inspection Neck: non-tender, normal alignment, supple, normal inspection Cardiovascular: normal peripheral pulses, normal rate, regular rhythm, no gallop/murmur, no JVD Respiratory/Chest: chest wall non-tender, lungs clear, normal breath sounds, no respiratory distress, no accessory muscle use Abdomen: normal bowel sounds, non tender, soft, no organomegaly, no mass Extremities: normal range of motion, non-tender 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 (5) Left flank pain Assessment & Plan: CT urogram = NO renal calculus. ? cystitis vs enteritis. Continue levaquin (6) Leukocytosis, unspecified Assessment & Plan: resolving. Cont ertapenem per ID (7) Cyclic vomiting syndrome Assessment & Plan: May require Endoscopy-see GI note Status: progressing Assessment/Plan Discharge planning ELSIE ANGELES Dec 24, 2017 12:16
[2017-12-24] MEDS: Magnesium Oxide 400mg tab ORAL SCH ×2 (13:41→17:12)
--- NOTE | 2017-12-24 15:30 | Pulmonology Progress Note ---
Assessment/Plan Problems: (1) Bacteremia (2) Infectious enteritis (3) Hx of appendectomy (4) Abdominal pain Assessment/Plan wbc lower, still high stool pending symptomatic treatment Psych evaluation pain is better BC positive for GPC in chains, Subjective ROS Limited/Unobtainable: No Constitutional: Reports: no symptoms HEENT: Repors: no symptoms Allergies: Coded Allergies: MORPHINE (Unverified Allergy, Intermediate, hives, 12/20/17) uncoded allergy, created coded allergy w/comments that was attached "hives" PENICILLINS (Verified Allergy, Unknown, 10/05/17) Objective Last 24 Hour Vital Signs Date Time Temp Pulse Resp B/P (MAP) Pulse Ox O2 Delivery O2 Flow Rate FiO2 12/24/17 08:00 97.4 83 20 114/75 96 12/24/17 04:00 97.7 72 20 96/59 98 12/23/17 20:00 98.1 71 20 118/79 96 12/23/17 16:10 97.9 12/23/17 15:53 97.9 73 20 113/67 100 Room Air Intake and Output 12/23/17 12/24/17 19:00 07:00 Intake Total 1080 ml 1450 ml Balance 1080 ml 1450 ml Intake Oral 300 ml IV Total 780 ml 950 ml Other 500 ml # Voids 4 3 Objective General Appearance: cachetic Lines, tubes and drains: peripheral HEENT: normocephalic, atraumatic Neck: non-tender, normal alignment Respiratory/Chest: chest wall non-tender, lungs clear Cardiovascular/Chest: normal peripheral pulses, normal rate Abdomen: normal bowel sounds, non tender Genitourinary/Rectal: normal genital exam, normal rectal exam Skin Exam: normal pigmentation Microbiology Date/Time Source Procedure Growth Status 12/22/17 11:48 Blood Blood Culture - Preliminary Resulted 12/22/17 11:42 Blood Blood Culture - Preliminary NO GROWTH AFTER 24 HOURS Resulted 12/21/17 22:00 Stool Stool Culture - Preliminary NORMAL FECAL JANET. Resulted 12/22/17 22:30 Urine,Clean Catch Urine Culture - Preliminary NO GROWTH AFTER 24 HOURS Resulted Laboratory Tests 12/24/17 07:10: White Blood Count 12.6H, Red Blood Count 4.26L, Hemoglobin 14.5, Hematocrit 43.2 , Mean Corpuscular Volume 102H, Mean Corpuscular Hemoglobin 34.0H, Mean Corpuscular Hemoglobin Concent 33.5, Red Cell Distribution Width 11.9, Platelet Count 281, Mean Platelet Volume 7.2, Neutrophils (%) (Auto) 69.6, Lymphocytes (% ) (Auto) 20.6, Monocytes (%) (Auto) 7.2, Eosinophils (%) (Auto) 2.0, Basophils ( %) (Auto) 0.6, Erythrocyte Sedimentation Rate 3, Sodium Level 137, Potassium Level 4.3, Chloride Level 102, Carbon Dioxide Level 24, Anion Gap 11, Blood Urea Nitrogen 9, Creatinine 0.8, Estimat Glomerular Filtration Rate > 60, Glucose Level 81, Calcium Level 9.0, Phosphorus Level 3.2, Magnesium Level 1.6L , Total Bilirubin 0.4, Aspartate Amino Transf (AST/SGOT) 17, Alanine Aminotransferase (ALT/SGPT) 10L, Alkaline Phosphatase 64, C-Reactive Protein, Quantitative < 0.4, Total Protein 7.3, Albumin 4.0, Globulin 3.3, Albumin/ Globulin Ratio 1.2 Current Medications Medications (Trade) Dose Ordered Sig/Brandon Route PRN Reason Start Time Stop Time Status Last Admin Dose Admin Acetaminophen (Tylenol) 650 mg Q4H PRN ORAL fever 12/20/17 12:00 01/19/18 11:59 Al Hydroxide/Mg Hydroxide (Mylanta II) 30 ml Q6H PRN ORAL dyspepsia 12/20/17 12:00 01/19/18 11:59 Daptomycin 350 mg/ Sodium Chloride 55 ml @ 110 mls/hr Q24H IV 12/23/17 15:00 12/30/17 14:59 12/23/17 15:40 Dextrose (Dextrose 50%) STAT PRN IV Hypoglycemia 12/20/17 12:00 01/19/18 11:59 Dextrose/Sodium Chloride 1,000 ml @ 75 mls/hr [id number] IV 12/20/17 13:00 01/19/18 12:59 12/23/17 21:39 Diphenhydramine HCl (Benadryl) 25 mg Q6H PRN ORAL Itching/Pruritis 12/20/17 12:00 01/19/18 11:59 Escitalopram Oxalate (Lexapro) 10 mg DAILY ORAL 12/21/17 11:00 2/25/18 10:59 12/24/17 07:54 Famotidine (Pepcid) 20 mg QHS ORAL 12/21/17 21:00 01/20/18 20:59 12/23/17 21:39 Heparin Sodium (Porcine) (Heparin 5000 units/ml) 5,000 units EVERY 12 HOURS SUBQ 12/20/17 21:00 01/19/18 20:59 Hydromorphone HCl (Dilaudid) 1 mg Q3H PRN IVP Moderate Pain (Pain Scale 4-6) 12/21/17 17:00 12/28/17 16:59 Hydromorphone HCl (Dilaudid) 2 mg Q3H PRN IVP Severe Pain (Pain Scale 7-10) 12/21/17 17:00 12/28/17 16:59 12/24/17 13:41 Levofloxacin 100 ml @ 100 mls/hr Q24H IVPB 12/22/17 13:00 12/29/17 12:59 12/24/17 13:41 Lorazepam (Ativan 2mg/ml 1ml) 1 mg Q4H PRN IV For Anxiety 12/20/17 15:00 12/27/17 14:59 12/24/17 12:50 Magnesium Oxide (Mag-Ox 400mg) 400 mg THREE TIMES A DAY ORAL 12/24/17 13:00 12/27/17 12:59 12/24/17 13:41 Metronidazole 100 ml @ 100 mls/hr Q8HR IVPB 12/22/17 14:00 12/29/17 13:59 12/24/17 05:38 Nitroglycerin (Ntg) 0.4 mg Q5M X 3 DOSES PRN SL Prn Chest Pain 12/20/17 12:00 01/19/18 11:59 Ondansetron HCl (Zofran) 4 mg Q6H PRN IVP Nausea & Vomiting 12/20/17 12:00 01/19/18 11:59 12/24/17 07:54 Pantoprazole (Protonix) 40 mg DAILY IVP 12/21/17 09:00 01/20/18 08:59 12/24/17 07:54 Polyethylene Glycol (Miralax) 17 gm HSPRN PRN ORAL Constipation 12/20/17 12:00 01/19/18 11:59 Spironolactone (Aldactone) 100 mg BID ORAL 12/20/17 22:00 01/19/18 21:59 12/24/17 07:54 Temazepam (Restoril) 15 mg HSPRN PRN ORAL Insomnia 12/20/17 12:00 12/27/17 11:59 JESSICA VERNON Dec 24, 2017 15:30
[2017-12-24 16:00] VITALS: BP 113/81
[2017-12-24] MEDS: HYDROmorphone 1mg/ml Carpuject IVP PRN ×2 (17:12→20:32)
[2017-12-24] MEDS: DAPTOmycin 350 MG in NS 55 ML IV SCH (17:13)
--- NOTE | 2017-12-24 18:19 | Cardiology Report ---
APPROVED REPORT EXAM: Two-dimensional and M-mode echocardiogram with Doppler and color Doppler. INDICATION Abdominal pain M-Mode DIMENSIONS IVSd0.7 (0.7-1.1cm)Left Atrium (MM)2.5 (1.6-4.0cm) LVDd4.8 (3.5-5.6cm)Aortic Root3.3 (2.0-3.7cm) PWd0.9 (0.7-1.1cm)Aortic Cusp Exc.1.9 (1.5-2.0cm) LVDs3.0 (2.5-4.0cm) PWs1.1 cm Normal left ventricular chamber size, systolic function and wall motion. Left ventricular ejection fraction estimated to be 55-60%. No evidence of left ventricular hypertrophy. No evidence of pericardial or pleural effusion. All other cardiac chamber sizes are within normal limits. Focal aortic valve sclerosis with adequate cusp excursion. Thickened mitral valve leaflets with normal excursion. Mild mitral annulus and aortic root calcification. Pulmonic valve not well visualized. Normal tricuspid valve structure. IVC is normal in size and collapsible with respiration. A color flow and spectral Doppler study was performed and revealed: No aortic regurgitation. No mitral regurgitation. Normal mitral diastolic function. Trace tricuspid regurgitation.
--- NOTE | 2017-12-24 19:27 | Infectious Diseases Prog Note ---
Assessment/Plan Assessment/Plan The patient is a 32-year-old male to female transgender ( on Aldactone and Estrogen Inj ) Gram positive Bacteremia- ?contaminant, ?enterococcus Bcx 11/29 GPC chains; Bcx 12/23 p Leukocytosis ( M/I due to acute stress and vomiting episodes) overall improved but now mildly increased Cyclic vomiting, chronic, doubt infectious etiology Diarrhea, chronic, ro parasitic infections CT: Questionable thickening of some small bowel loops possibly reflective of an enteritis versus underdistention. -stool cx normal oscar to date HIV Neg ?cystitis HU + CT: No evidence of urinary tract stone or hydronephrosis as questioned clinically. Mild thickening of the bladder HIV neg Marfan syndrome history of spontaneous pneumothorax hx of Pancreatitis Anxiety smoker (tobacco and marijuana) patient denies any IV drug abuse or alcohol abuse history of appendectomy. PLAN: Continue Levaquin and Flagyl d# 3/5 and Daptomycin #2 pending ID GPC and repeat Bcx -12/23 SP Linezolid x1 -12/22 SP Aztreonam #3 Monitor CBC. Monitor BMP. cultures (blood and urine). Stool for C. difficile, culture, ova and parasite, Cryptosporidium, and modified AFB stain, Giardia, cyclospora/isospora, microsporidium GI following Subjective Allergies: Coded Allergies: MORPHINE (Unverified Allergy, Intermediate, hives, 12/20/17) uncoded allergy, created coded allergy w/comments that was attached "hives" PENICILLINS (Verified Allergy, Unknown, 10/05/17) Subjective afebrile mild increase leukocytosis but overall improved bacteremic GPC chains Objective Vital Signs Last 24 Hour Vital Signs Date Time Temp Pulse Resp B/P (MAP) Pulse Ox O2 Delivery O2 Flow Rate FiO2 12/24/17 17:42 97.5 12/24/17 16:00 97.5 86 18 113/81 95 12/24/17 08:00 97.4 83 20 114/75 96 12/24/17 04:00 97.7 72 20 96/59 98 12/23/17 20:00 98.1 71 20 118/79 96 Height (Feet): 5 Height (Inches): 11.00 Weight (Pounds): 130 Microbiology Date/Time Source Procedure Growth Status 12/22/17 11:48 Blood Blood Culture - Preliminary Resulted 12/22/17 11:42 Blood Blood Culture - Preliminary NO GROWTH AFTER 24 HOURS Resulted 12/21/17 22:00 Stool Stool Culture - Preliminary NORMAL FECAL OSCAR. Resulted 12/22/17 22:30 Urine,Clean Catch Urine Culture - Preliminary NO GROWTH AFTER 24 HOURS Resulted Laboratory Tests Test 12/24/17 07:10 White Blood Count 12.6 K/UL (4.8-10.8) H Red Blood Count 4.26 M/UL (4.70-6.10) L Hemoglobin 14.5 G/DL (14.2-18.0) Hematocrit 43.2 % (42.0-52.0) Mean Corpuscular Volume 102 FL (80-99) H Mean Corpuscular Hemoglobin 34.0 PG (27.0-31.0) H Mean Corpuscular Hemoglobin Concent 33.5 G/DL (32.0-36.0) Red Cell Distribution Width 11.9 % (11.6-14.8) Platelet Count 281 K/UL (150-450) Mean Platelet Volume 7.2 FL (6.5-10.1) Neutrophils (%) (Auto) 69.6 % (45.0-75.0) Lymphocytes (%) (Auto) 20.6 % (20.0-45.0) Monocytes (%) (Auto) 7.2 % (1.0-10.0) Eosinophils (%) (Auto) 2.0 % (0.0-3.0) Basophils (%) (Auto) 0.6 % (0.0-2.0) Erythrocyte Sedimentation Rate 3 MM/HR (0-15) Sodium Level 137 MMOL/L (136-145) Potassium Level 4.3 MMOL/L (3.5-5.1) Chloride Level 102 MMOL/L (98-107) Carbon Dioxide Level 24 MMOL/L (21-32) Anion Gap 11 mmol/L (5-15) Blood Urea Nitrogen 9 mg/dL (7-18) Creatinine 0.8 MG/DL (0.55-1.30) Estimat Glomerular Filtration Rate > 60 mL/min (>60) Glucose Level 81 MG/DL (74-106) Calcium Level 9.0 MG/DL (8.5-10.1) Phosphorus Level 3.2 MG/DL (2.5-4.9) Magnesium Level 1.6 MG/DL (1.8-2.4) L Total Bilirubin 0.4 MG/DL (0.2-1.0) Aspartate Amino Transf (AST/SGOT) 17 U/L (15-37) Alanine Aminotransferase (ALT/SGPT) 10 U/L (12-78) L Alkaline Phosphatase 64 U/L (46-116) C-Reactive Protein, Quantitative < 0.4 mg/dL (0.00-0.90) Total Protein 7.3 G/DL (6.4-8.2) Albumin 4.0 G/DL (3.4-5.0) Globulin 3.3 g/dL Albumin/Globulin Ratio 1.2 (1.0-2.7) Current Medications Medications (Trade) Dose Ordered Sig/Brandon Route PRN Reason Start Time Stop Time Status Last Admin Dose Admin Acetaminophen (Tylenol) 650 mg Q4H PRN ORAL fever 12/20/17 12:00 01/19/18 11:59 Al Hydroxide/Mg Hydroxide (Mylanta II) 30 ml Q6H PRN ORAL dyspepsia 12/20/17 12:00 01/19/18 11:59 Daptomycin 350 mg/ Sodium Chloride 55 ml @ 110 mls/hr Q24H IV 12/23/17 15:00 12/30/17 14:59 12/24/17 17:13 Dextrose (Dextrose 50%) STAT PRN IV Hypoglycemia 12/20/17 12:00 01/19/18 11:59 Dextrose/Sodium Chloride 1,000 ml @ 75 mls/hr [id number] IV 12/20/17 13:00 01/19/18 12:59 12/24/17 15:51 Diphenhydramine HCl (Benadryl) 25 mg Q6H PRN ORAL Itching/Pruritis 12/20/17 12:00 01/19/18 11:59 Escitalopram Oxalate (Lexapro) 10 mg DAILY ORAL 12/21/17 11:00 01/20/18 10:59 12/24/17 07:54 Famotidine (Pepcid) 20 mg QHS ORAL 12/21/17 21:00 01/20/18 20:59 12/23/17 21:39 Heparin Sodium (Porcine) (Heparin 5000 units/ml) 5,000 units EVERY 12 HOURS SUBQ 12/20/17 21:00 01/19/18 20:59 Hydromorphone HCl (Dilaudid) 1 mg Q3H PRN IVP Moderate Pain (Pain Scale 4-6) 12/21/17 17:00 12/28/17 16:59 12/24/17 17:12 Levofloxacin 100 ml @ 100 mls/hr Q24H IVPB 12/22/17 13:00 12/29/17 12:59 12/24/17 13:41 Lorazepam (Ativan 2mg/ml 1ml) 1 mg Q4H PRN IV For Anxiety 12/20/17 15:00 12/27/17 14:59 12/24/17 18:41 Magnesium Oxide (Mag-Ox 400mg) 400 mg THREE TIMES A DAY ORAL 12/24/17 13:00 12/27/17 12:59 12/24/17 17:12 Metronidazole 100 ml @ 100 mls/hr Q8HR IVPB 12/22/17 14:00 12/29/17 13:59 12/24/17 15:50 Nitroglycerin (Ntg) 0.4 mg Q5M X 3 DOSES PRN SL Prn Chest Pain 12/20/17 12:00 01/19/18 11:59 Ondansetron HCl (Zofran) 4 mg Q6H PRN IVP Nausea & Vomiting 12/20/17 12:00 01/19/18 11:59 12/24/17 15:50 Pantoprazole (Protonix) 40 mg DAILY IVP 12/21/17 09:00 01/20/18 08:59 12/24/17 07:54 Polyethylene Glycol (Miralax) 17 gm HSPRN PRN ORAL Constipation 12/20/17 12:00 01/19/18 11:59 Spironolactone (Aldactone) 100 mg BID ORAL 12/20/17 22:00 01/19/18 21:59 12/24/17 17:13 Temazepam (Restoril) 15 mg HSPRN PRN ORAL Insomnia 12/20/17 12:00 12/27/17 11:59 Susan Vizcaino M.D. Dec 24, 2017 19:27
[2017-12-24 20:00] VITALS: BP 112/72
--- NOTE | 2017-12-24 22:40 | General Progress Note ---
Assessment/Plan Status: stable, progressing Subjective Date patient seen: Dec 24, 2017 Neurologic/Psychiatric: Reports: anxiety Allergies: Coded Allergies: MORPHINE (Unverified Allergy, Intermediate, hives, 12/20/17) uncoded allergy, created coded allergy w/comments that was attached "hives" PENICILLINS (Verified Allergy, Unknown, 10/05/17) Objective Last 24 Hour Vital Signs Date Time Temp Pulse Resp B/P (MAP) Pulse Ox O2 Delivery O2 Flow Rate FiO2 12/24/17 20:00 97.6 74 20 112/72 95 12/24/17 17:42 97.5 12/24/17 16:00 97.5 86 18 113/81 95 12/24/17 08:00 97.4 83 20 114/75 96 12/24/17 04:00 97.7 72 20 96/59 98 Intake and Output 12/23/17 12/24/17 19:00 07:00 Intake Total 1080 ml 1450 ml Balance 1080 ml 1450 ml Intake Oral 300 ml IV Total 780 ml 950 ml Other 500 ml # Voids 4 3 Laboratory Tests 12/24/17 07:10: White Blood Count 12.6H, Red Blood Count 4.26L, Hemoglobin 14.5, Hematocrit 43.2 , Mean Corpuscular Volume 102H, Mean Corpuscular Hemoglobin 34.0H, Mean Corpuscular Hemoglobin Concent 33.5, Red Cell Distribution Width 11.9, Platelet Count 281, Mean Platelet Volume 7.2, Neutrophils (%) (Auto) 69.6, Lymphocytes (% ) (Auto) 20.6, Monocytes (%) (Auto) 7.2, Eosinophils (%) (Auto) 2.0, Basophils ( %) (Auto) 0.6, Erythrocyte Sedimentation Rate 3, Sodium Level 137, Potassium Level 4.3, Chloride Level 102, Carbon Dioxide Level 24, Anion Gap 11, Blood Urea Nitrogen 9, Creatinine 0.8, Estimat Glomerular Filtration Rate > 60, Glucose Level 81, Calcium Level 9.0, Phosphorus Level 3.2, Magnesium Level 1.6L , Total Bilirubin 0.4, Aspartate Amino Transf (AST/SGOT) 17, Alanine Aminotransferase (ALT/SGPT) 10L, Alkaline Phosphatase 64, C-Reactive Protein, Quantitative < 0.4, Total Protein 7.3, Albumin 4.0, Globulin 3.3, Albumin/ Globulin Ratio 1.2 Height (Feet): 5 Height (Inches): 11.00 Weight (Pounds): 130 General Appearance: no apparent distress, alert Jeferson Costa M.D. Dec 24, 2017 22:40
[2017-12-25] VITALS: BP 123/80
[2017-12-25] MEDS: HYDROmorphone 1mg/ml Carpuject IVP PRN ×6 (01:39→21:22)
[2017-12-25] MEDS: LORazepam Inj 2mg/ml 1ml IV PRN ×3 (03:06→20:14)
[2017-12-25] MEDS: D5 1/2NS 1,000 ML IV SCH (05:11)
[2017-12-25 05:18] VITALS: BP 154/60
[2017-12-25 07:30] LABS: BASOPHILS % (AUTO) 0.5 % (0.0-2.0); EOSINOPHILS % (AUTO) 2.5 % (0.0-3.0); HEMATOCRIT 39.8 % (42.0-52.0); HEMOGLOBIN 13.8 G/DL (14.2-18.0); LYMPHOCYTES % (AUTO) 20.1 % (20.0-45.0); MEAN CORPUSCULAR VOLUME 101 FL (80-99); MONOCYTES % (AUTO) 6.9 % (1.0-10.0); PLATELET COUNT 248 K/UL (150-450); RED BLOOD COUNT 3.95 M/UL (4.70-6.10); RED CELL DISTRIBUTION WIDTH 11.5 % (11.6-14.8); WHITE BLOOD COUNT 11.3 K/UL (4.8-10.8)
[2017-12-25 07:43] LABS: ANION GAP 8 mmol/L (5-15); BLOOD UREA NITROGEN 9 mg/dL (7-18); CALCIUM 8.9 MG/DL (8.5-10.1); CARBON DIOXIDE 25 MMOL/L (21-32); CHLORIDE 103 MMOL/L (98-107); CREATININE 0.7 MG/DL (0.55-1.30); SODIUM 136 MMOL/L (136-145)
[2017-12-25 07:57] LABS: CREATINE KINASE 23 U/L (26-308)
[2017-12-25 08:00] VITALS: BP 122/72
[2017-12-25] MEDS: Heparin 5000 units/ml inj SUBQ SCH ×2 (08:41→20:46)
[2017-12-25] MEDS: Pantoprazole Inj IVP SCH (09:25)
[2017-12-25] MEDS: Spironolactone 50mg tab ORAL SCH ×2 (09:25→17:05)
[2017-12-25] MEDS: Magnesium Oxide 400mg tab ORAL SCH ×3 (10:22→17:05)
--- NOTE | 2017-12-25 10:52 | Infectious Diseases Prog Note ---
Assessment/Plan Assessment/Plan The patient is a 32-year-old male to female transgender ( on Aldactone and Estrogen Inj ) Gram positive Bacteremia- ?contaminant, ?enterococcus Bcx 11/29 GPC chains; Bcx 12/23 NTD Leukocytosis ( M/I due to acute stress and vomiting episodes)improving Cyclic vomiting, chronic, doubt infectious etiology Diarrhea, chronic, ro parasitic infections CT: Questionable thickening of some small bowel loops possibly reflective of an enteritis versus underdistention. -stool cx normal oscar to date HIV Neg ?cystitis HU + CT: No evidence of urinary tract stone or hydronephrosis as questioned clinically. Mild thickening of the bladder HIV neg Marfan syndrome history of spontaneous pneumothorax hx of Pancreatitis Anxiety smoker (tobacco and marijuana) patient denies any IV drug abuse or alcohol abuse history of appendectomy. PLAN: Continue Levaquin and Flagyl d# 4/5 and Daptomycin #3 pending ID GPC and repeat Bcx -12/23 SP Linezolid x1 -12/22 SP Aztreonam #3 Monitor CBC. Monitor BMP. cultures (blood and urine). f/u Stool for C. difficile, culture, ova and parasite, Cryptosporidium, and modified AFB stain, Giardia, cyclospora/isospora, microsporidium GI following Subjective Allergies: Coded Allergies: MORPHINE (Unverified Allergy, Intermediate, hives, 12/20/17) uncoded allergy, created coded allergy w/comments that was attached "hives" PENICILLINS (Verified Allergy, Unknown, 10/05/17) Subjective afebrile leukocytosis improving repeat Bcx NTD Objective Vital Signs Last 24 Hour Vital Signs Date Time Temp Pulse Resp B/P (MAP) Pulse Ox O2 Delivery O2 Flow Rate FiO2 12/25/17 08:00 98.0 75 20 122/72 99 12/25/17 05:18 97.9 84 21 154/60 99 Room Air 12/25/17 02:09 97.5 12/25/17 00:00 97.5 69 21 123/80 100 12/24/17 20:00 97.6 74 20 112/72 95 12/24/17 16:00 97.5 86 18 113/81 95 Height (Feet): 5 Height (Inches): 11.00 Weight (Pounds): 130 Objective General Appearance: cachetic Lines, tubes and drains: peripheral HEENT: normocephalic, atraumatic Neck: non-tender, normal alignment Respiratory/Chest: chest wall non-tender, lungs clear Cardiovascular/Chest: normal peripheral pulses, normal rate Abdomen: normal bowel sounds, non tender Genitourinary/Rectal: normal genital exam, normal rectal exam Skin Exam: normal pigmentation Microbiology Date/Time Source Procedure Growth Status 12/23/17 16:11 Blood Blood Culture - Preliminary NO GROWTH AFTER 24 HOURS Resulted 12/23/17 16:01 Blood Blood Culture - Preliminary NO GROWTH AFTER 24 HOURS Resulted 12/22/17 11:48 Blood Blood Culture - Preliminary Gram Positive Cocci Resulted 12/22/17 11:42 Blood Blood Culture - Preliminary NO GROWTH AFTER 48 HOURS Resulted 12/22/17 22:30 Urine,Clean Catch Urine Culture - Final NO GROWTH AFTER 48 HOURS Complete Laboratory Tests Test 12/25/17 05:35 White Blood Count 11.3 K/UL (4.8-10.8) H Red Blood Count 3.95 M/UL (4.70-6.10) L Hemoglobin 13.8 G/DL (14.2-18.0) L Hematocrit 39.8 % (42.0-52.0) L Mean Corpuscular Volume 101 FL (80-99) H Mean Corpuscular Hemoglobin 34.9 PG (27.0-31.0) H Mean Corpuscular Hemoglobin Concent 34.6 G/DL (32.0-36.0) Red Cell Distribution Width 11.5 % (11.6-14.8) L Platelet Count 248 K/UL (150-450) Mean Platelet Volume 7.6 FL (6.5-10.1) Neutrophils (%) (Auto) 70.0 % (45.0-75.0) Lymphocytes (%) (Auto) 20.1 % (20.0-45.0) Monocytes (%) (Auto) 6.9 % (1.0-10.0) Eosinophils (%) (Auto) 2.5 % (0.0-3.0) Basophils (%) (Auto) 0.5 % (0.0-2.0) Sodium Level 136 MMOL/L (136-145) Potassium Level 4.0 MMOL/L (3.5-5.1) Chloride Level 103 MMOL/L (98-107) Carbon Dioxide Level 25 MMOL/L (21-32) Anion Gap 8 mmol/L (5-15) Blood Urea Nitrogen 9 mg/dL (7-18) Creatinine 0.7 MG/DL (0.55-1.30) Estimat Glomerular Filtration Rate > 60 mL/min (>60) Glucose Level 86 MG/DL (74-106) Calcium Level 8.9 MG/DL (8.5-10.1) Total Creatine Kinase 23 U/L (26-308) L Current Medications Medications (Trade) Dose Ordered Sig/Brandon Route PRN Reason Start Time Stop Time Status Last Admin Dose Admin Acetaminophen (Tylenol) 650 mg Q4H PRN ORAL fever 12/20/17 12:00 01/19/18 11:59 Al Hydroxide/Mg Hydroxide (Mylanta II) 30 ml Q6H PRN ORAL dyspepsia 12/20/17 12:00 01/19/18 11:59 Daptomycin 350 mg/ Sodium Chloride 55 ml @ 110 mls/hr Q24H IV 12/23/17 15:00 12/30/17 14:59 12/24/17 17:13 Dextrose (Dextrose 50%) STAT PRN IV Hypoglycemia 12/20/17 12:00 01/19/18 11:59 Dextrose/Sodium Chloride 1,000 ml @ 75 mls/hr [id number] IV 12/20/17 13:00 01/19/18 12:59 12/25/17 05:11 Diphenhydramine HCl (Benadryl) 25 mg Q6H PRN ORAL Itching/Pruritis 12/20/17 12:00 01/19/18 11:59 Escitalopram Oxalate (Lexapro) 10 mg DAILY ORAL 12/21/17 11:00 01/20/18 10:59 12/25/17 09:25 Famotidine (Pepcid) 20 mg QHS ORAL 12/21/17 21:00 01/20/18 20:59 12/24/17 20:32 Heparin Sodium (Porcine) (Heparin 5000 units/ml) 5,000 units EVERY 12 HOURS SUBQ 12/20/17 21:00 01/19/18 20:59 Hydromorphone HCl (Dilaudid) 1 mg Q3H PRN IVP Moderate Pain (Pain Scale 4-6) 12/21/17 17:00 2/2/18 16:59 12/25/17 09:24 Levofloxacin 100 ml @ 100 mls/hr Q24H IVPB 12/22/17 13:00 12/29/17 12:59 12/24/17 13:41 Lorazepam (Ativan 2mg/ml 1ml) 1 mg Q4H PRN IV For Anxiety 12/20/17 15:00 12/27/17 14:59 12/25/17 03:06 Magnesium Oxide (Mag-Ox 400mg) 400 mg THREE TIMES A DAY ORAL 12/24/17 13:00 12/27/17 12:59 12/25/17 10:22 Metronidazole 100 ml @ 100 mls/hr Q8HR IVPB 12/22/17 14:00 12/29/17 13:59 12/25/17 05:11 Nitroglycerin (Ntg) 0.4 mg Q5M X 3 DOSES PRN SL Prn Chest Pain 12/20/17 12:00 01/19/18 11:59 Ondansetron HCl (Zofran) 4 mg Q6H PRN IVP Nausea & Vomiting 12/20/17 12:00 01/19/18 11:59 12/25/17 05:07 Pantoprazole (Protonix) 40 mg DAILY IVP 12/21/17 09:00 01/20/18 08:59 12/25/17 09:25 Polyethylene Glycol (Miralax) 17 gm HSPRN PRN ORAL Constipation 12/20/17 12:00 01/19/18 11:59 Spironolactone (Aldactone) 100 mg BID ORAL 12/20/17 22:00 01/19/18 21:59 12/25/17 09:25 Temazepam (Restoril) 15 mg HSPRN PRN ORAL Insomnia 12/20/17 12:00 12/27/17 11:59 Susan Vizcaino M.D. Dec 25, 2017 10:52
--- NOTE | 2017-12-25 13:42 | GI Progress Note ---
Assessment/Plan Problems: (1) Nausea & vomiting ICD Codes: R11.2 - Nausea with vomiting, unspecified SNOMED: 75603206 (2) Cyclic vomiting syndrome ICD Codes: G43.A0 - Cyclical vomiting, not intractable SNOMED: 17504853 (3) Anxiety ICD Codes: F41.9 - Anxiety disorder, unspecified SNOMED: 92786965 (4) Abdominal pain ICD Codes: R10.9 - Unspecified abdominal pain SNOMED: 32627281 Status: stable, progressing Status Narrative Discussed with Dr. Kahn. Assessment/Plan Wean down narcotics symptomatic treatment at this time ppi daily, will add zantac qhs defer reglan, has drug interaction with SNRI zofran prn adv to regular diet today fu labs Subjective Subjective abdominal pain improved episode of diarrhea this morning Objective Last 24 Hour Vital Signs Date Time Temp Pulse Resp B/P (MAP) Pulse Ox O2 Delivery O2 Flow Rate FiO2 12/25/17 08:00 98.0 75 20 122/72 99 12/25/17 05:18 97.9 84 21 154/60 99 Room Air 12/25/17 02:09 97.5 12/25/17 00:00 97.5 69 21 123/80 100 12/24/17 20:00 97.6 74 20 112/72 95 12/24/17 16:00 97.5 86 18 113/81 95 Intake and Output 12/24/17 12/25/17 19:00 07:00 Intake Total 1490 ml 1485 ml Output Total 25 ml Balance 1490 ml 1460 ml Intake Oral 800 ml 600 ml IV Total 690 ml 885 ml Output Emesis 25 ml # Voids 5 3 # Bowel Movements 1 Laboratory Tests Test 12/25/17 05:35 White Blood Count 11.3 K/UL (4.8-10.8) H Red Blood Count 3.95 M/UL (4.70-6.10) L Hemoglobin 13.8 G/DL (14.2-18.0) L Hematocrit 39.8 % (42.0-52.0) L Mean Corpuscular Volume 101 FL (80-99) H Mean Corpuscular Hemoglobin 34.9 PG (27.0-31.0) H Mean Corpuscular Hemoglobin Concent 34.6 G/DL (32.0-36.0) Red Cell Distribution Width 11.5 % (11.6-14.8) L Platelet Count 248 K/UL (150-450) Mean Platelet Volume 7.6 FL (6.5-10.1) Neutrophils (%) (Auto) 70.0 % (45.0-75.0) Lymphocytes (%) (Auto) 20.1 % (20.0-45.0) Monocytes (%) (Auto) 6.9 % (1.0-10.0) Eosinophils (%) (Auto) 2.5 % (0.0-3.0) Basophils (%) (Auto) 0.5 % (0.0-2.0) Sodium Level 136 MMOL/L (136-145) Potassium Level 4.0 MMOL/L (3.5-5.1) Chloride Level 103 MMOL/L (98-107) Carbon Dioxide Level 25 MMOL/L (21-32) Anion Gap 8 mmol/L (5-15) Blood Urea Nitrogen 9 mg/dL (7-18) Creatinine 0.7 MG/DL (0.55-1.30) Estimat Glomerular Filtration Rate > 60 mL/min (>60) Glucose Level 86 MG/DL (74-106) Calcium Level 8.9 MG/DL (8.5-10.1) Total Creatine Kinase 23 U/L (26-308) L Height (Feet): 5 Height (Inches): 11.00 Weight (Pounds): 130 General Appearance: WD/WN, no apparent distress, alert Cardiovascular: normal rate Respiratory/Chest: normal breath sounds, no respiratory distress Abdominal Exam: normal bowel sounds, non tender, soft Extremities: normal range of motion, non-tender Elise Mosqueda N.P. Dec 25, 2017 13:42
[2017-12-25 16:06] VITALS: BP 133/81
--- NOTE | 2017-12-25 16:51 | Internal Med Progress Note ---
Subjective Date of Service: Dec 25, 2017 Physician Name Elsie Angeles Attending Physician Guillermo Blakely MD Current Medications Medications (Trade) Dose Ordered Sig/Brandon Route PRN Reason Start Time Stop Time Status Last Admin Dose Admin Acetaminophen (Tylenol) 650 mg Q4H PRN ORAL fever 12/20/17 12:00 01/19/18 11:59 Al Hydroxide/Mg Hydroxide (Mylanta II) 30 ml Q6H PRN ORAL dyspepsia 12/20/17 12:00 01/19/18 11:59 Daptomycin 350 mg/ Sodium Chloride 55 ml @ 110 mls/hr Q24H IV 12/23/17 15:00 12/30/17 14:59 12/24/17 17:13 Dextrose (Dextrose 50%) STAT PRN IV Hypoglycemia 12/20/17 12:00 01/19/18 11:59 Dextrose/Sodium Chloride 1,000 ml @ 75 mls/hr [id number] IV 12/20/17 13:00 01/19/18 12:59 12/25/17 05:11 Diphenhydramine HCl (Benadryl) 25 mg Q6H PRN ORAL Itching/Pruritis 12/20/17 12:00 01/19/18 11:59 Escitalopram Oxalate (Lexapro) 10 mg DAILY ORAL 12/21/17 11:00 01/20/18 10:59 12/25/17 09:25 Famotidine (Pepcid) 20 mg QHS ORAL 12/21/17 21:00 01/20/18 20:59 12/24/17 20:32 Heparin Sodium (Porcine) (Heparin 5000 units/ml) 5,000 units EVERY 12 HOURS SUBQ 12/20/17 21:00 01/19/18 20:59 Hydromorphone HCl (Dilaudid) 1 mg Q3H PRN IVP Moderate Pain (Pain Scale 4-6) 12/21/17 17:00 12/28/17 16:59 12/25/17 14:30 Levofloxacin 100 ml @ 100 mls/hr Q24H IVPB 12/22/17 13:00 12/29/17 12:59 12/25/17 12:15 Lorazepam (Ativan 2mg/ml 1ml) 1 mg Q4H PRN IV For Anxiety 12/20/17 15:00 12/27/17 14:59 12/25/17 12:15 Magnesium Oxide (Mag-Ox 400mg) 400 mg THREE TIMES A DAY ORAL 12/24/17 13:00 12/27/17 12:59 12/25/17 12:15 Metronidazole 100 ml @ 100 mls/hr Q8HR IVPB 12/22/17 14:00 12/29/17 13:59 12/25/17 15:17 Nitroglycerin (Ntg) 0.4 mg Q5M X 3 DOSES PRN SL Prn Chest Pain 12/20/17 12:00 01/19/18 11:59 Ondansetron HCl (Zofran) 4 mg Q6H PRN IVP Nausea & Vomiting 12/20/17 12:00 01/19/18 11:59 12/25/17 12:15 Pantoprazole (Protonix) 40 mg DAILY IVP 12/21/17 09:00 01/20/18 08:59 12/25/17 09:25 Polyethylene Glycol (Miralax) 17 gm HSPRN PRN ORAL Constipation 12/20/17 12:00 01/19/18 11:59 Spironolactone (Aldactone) 100 mg BID ORAL 12/20/17 22:00 01/19/18 21:59 12/25/17 09:25 Temazepam (Restoril) 15 mg HSPRN PRN ORAL Insomnia 12/20/17 12:00 12/27/17 11:59 Allergies: Coded Allergies: MORPHINE (Unverified Allergy, Intermediate, hives, 12/20/17) uncoded allergy, created coded allergy w/comments that was attached "hives" PENICILLINS (Verified Allergy, Unknown, 10/05/17) ROS Limited/Unobtainable: No Constitutional: Reports: no symptoms HEENT: Reports: no symptoms Cardiovascular: Reports: no symptoms Respiratory: Reports: no symptoms Gastrointestinal/Abdominal: Reports: no symptoms Genitourinary: Reports: no symptoms Neurologic/Psychiatric: Reports: no symptoms Subjective 32 YO M admitted with abdominal pain. Now cyclic vomiting syndrome. Positive blood culture. Cover for Patience Tang-Dr Blakely. Objective Last Vital Signs Date Time Temp Pulse Resp B/P (MAP) Pulse Ox O2 Delivery O2 Flow Rate FiO2 12/25/17 16:06 97.2 81 21 133/81 97 Room Air Laboratory Tests Test 12/25/17 05:35 White Blood Count 11.3 K/UL (4.8-10.8) H Red Blood Count 3.95 M/UL (4.70-6.10) L Hemoglobin 13.8 G/DL (14.2-18.0) L Hematocrit 39.8 % (42.0-52.0) L Mean Corpuscular Volume 101 FL (80-99) H Mean Corpuscular Hemoglobin 34.9 PG (27.0-31.0) H Mean Corpuscular Hemoglobin Concent 34.6 G/DL (32.0-36.0) Red Cell Distribution Width 11.5 % (11.6-14.8) L Platelet Count 248 K/UL (150-450) Mean Platelet Volume 7.6 FL (6.5-10.1) Neutrophils (%) (Auto) 70.0 % (45.0-75.0) Lymphocytes (%) (Auto) 20.1 % (20.0-45.0) Monocytes (%) (Auto) 6.9 % (1.0-10.0) Eosinophils (%) (Auto) 2.5 % (0.0-3.0) Basophils (%) (Auto) 0.5 % (0.0-2.0) Sodium Level 136 MMOL/L (136-145) Potassium Level 4.0 MMOL/L (3.5-5.1) Chloride Level 103 MMOL/L (98-107) Carbon Dioxide Level 25 MMOL/L (21-32) Anion Gap 8 mmol/L (5-15) Blood Urea Nitrogen 9 mg/dL (7-18) Creatinine 0.7 MG/DL (0.55-1.30) Estimat Glomerular Filtration Rate > 60 mL/min (>60) Glucose Level 86 MG/DL (74-106) Calcium Level 8.9 MG/DL (8.5-10.1) Total Creatine Kinase 23 U/L (26-308) L Microbiology Date/Time Source Procedure Growth Status 12/23/17 16:11 Blood Blood Culture - Preliminary NO GROWTH AFTER 24 HOURS Resulted 12/23/17 16:01 Blood Blood Culture - Preliminary NO GROWTH AFTER 24 HOURS Resulted 12/22/17 22:30 Urine,Clean Catch Urine Culture - Final NO GROWTH AFTER 48 HOURS Complete Intake and Output 12/24/17 12/25/17 19:00 07:00 Intake Total 1490 ml 1485 ml Output Total 25 ml Balance 1490 ml 1460 ml Intake Oral 800 ml 600 ml IV Total 690 ml 885 ml Output Emesis 25 ml # Voids 5 3 # Bowel Movements 1 Objective General Appearance: alert, moderate distress, thin EENT: PERRL/EOMI, normal ENT inspection Neck: non-tender, normal alignment, supple, normal inspection Cardiovascular: normal peripheral pulses, normal rate, regular rhythm, no gallop/murmur, no JVD Respiratory/Chest: chest wall non-tender, lungs clear, normal breath sounds, no respiratory distress, no accessory muscle use Abdomen: normal bowel sounds, non tender, soft, no organomegaly, no mass Extremities: normal range of motion, non-tender 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 (5) Left flank pain Assessment & Plan: CT urogram = NO renal calculus. ? cystitis vs enteritis. Continue levaquin (6) Leukocytosis, unspecified Assessment & Plan: resolving. Cont ertapenem per ID (7) Cyclic vomiting syndrome Assessment & Plan: May require Endoscopy-see GI note (8) Bacteremia Assessment & Plan: Continue levaquin and daptomycin per ID. Repeat blood culture pending Status: not improved Assessment/Plan Discharge planning ELSIE ANGELES Dec 25, 2017 16:51
[2017-12-25] MEDS: DAPTOmycin 350 MG in NS 55 ML IV SCH (17:05)
--- NOTE | 2017-12-25 17:18 | Pulmonology Progress Note ---
Assessment/Plan Problems: (1) Bacteremia (2) Infectious enteritis (3) Hx of appendectomy (4) Abdominal pain Assessment/Plan wbc lower, still high stool pending symptomatic treatment Psych evaluation pain is better BC positive for GPC in chains, repeat blood cultures Subjective ROS Limited/Unobtainable: No Constitutional: Reports: no symptoms HEENT: Repors: no symptoms Respiratory: Reports: no symptoms Allergies: Coded Allergies: MORPHINE (Unverified Allergy, Intermediate, hives, 12/20/17) uncoded allergy, created coded allergy w/comments that was attached "hives" PENICILLINS (Verified Allergy, Unknown, 10/05/17) Objective Last 24 Hour Vital Signs Date Time Temp Pulse Resp B/P (MAP) Pulse Ox O2 Delivery O2 Flow Rate FiO2 12/25/17 16:06 97.2 81 21 133/81 97 Room Air 12/25/17 08:00 98.0 75 20 122/72 99 12/25/17 05:18 97.9 84 21 154/60 99 Room Air 12/25/17 02:09 97.5 12/25/17 00:00 97.5 69 21 123/80 100 12/24/17 20:00 97.6 74 20 112/72 95 Intake and Output 12/24/17 12/25/17 19:00 07:00 Intake Total 1490 ml 1485 ml Output Total 25 ml Balance 1490 ml 1460 ml Intake Oral 800 ml 600 ml IV Total 690 ml 885 ml Output Emesis 25 ml # Voids 5 3 # Bowel Movements 1 Objective General Appearance: cachetic Lines, tubes and drains: peripheral HEENT: normocephalic, atraumatic Neck: non-tender, normal alignment Respiratory/Chest: chest wall non-tender, lungs clear Cardiovascular/Chest: normal peripheral pulses, normal rate Abdomen: normal bowel sounds, non tender Genitourinary/Rectal: normal genital exam, normal rectal exam Skin Exam: normal pigmentation Microbiology Date/Time Source Procedure Growth Status 12/23/17 16:11 Blood Blood Culture - Preliminary NO GROWTH AFTER 24 HOURS Resulted 12/23/17 16:01 Blood Blood Culture - Preliminary NO GROWTH AFTER 24 HOURS Resulted 12/22/17 22:30 Urine,Clean Catch Urine Culture - Final NO GROWTH AFTER 48 HOURS Complete Laboratory Tests 12/25/17 05:35: White Blood Count 11.3H, Red Blood Count 3.95L, Hemoglobin 13.8L, Hematocrit 39.8L, Mean Corpuscular Volume 101H, Mean Corpuscular Hemoglobin 34.9H, Mean Corpuscular Hemoglobin Concent 34.6, Red Cell Distribution Width 11.5L, Platelet Count 248, Mean Platelet Volume 7.6, Neutrophils (%) (Auto) 70.0, Lymphocytes (%) (Auto) 20.1, Monocytes (%) (Auto) 6.9, Eosinophils (%) (Auto) 2.5, Basophils (%) (Auto) 0.5, Sodium Level 136, Potassium Level 4.0, Chloride Level 103, Carbon Dioxide Level 25, Anion Gap 8, Blood Urea Nitrogen 9, Creatinine 0.7, Estimat Glomerular Filtration Rate > 60, Glucose Level 86, Calcium Level 8.9, Total Creatine Kinase 23L Current Medications Medications (Trade) Dose Ordered Sig/Brandon Route PRN Reason Start Time Stop Time Status Last Admin Dose Admin Acetaminophen (Tylenol) 650 mg Q4H PRN ORAL fever 12/20/17 12:00 01/19/18 11:59 Al Hydroxide/Mg Hydroxide (Mylanta II) 30 ml Q6H PRN ORAL dyspepsia 12/20/17 12:00 01/19/18 11:59 Daptomycin 350 mg/ Sodium Chloride 55 ml @ 110 mls/hr Q24H IV 12/23/17 15:00 12/30/17 14:59 12/25/17 17:05 Dextrose (Dextrose 50%) STAT PRN IV Hypoglycemia 12/20/17 12:00 01/19/18 11:59 Dextrose/Sodium Chloride 1,000 ml @ 75 mls/hr [id number] IV 12/20/17 13:00 01/19/18 12:59 12/25/17 05:11 Diphenhydramine HCl (Benadryl) 25 mg Q6H PRN ORAL Itching/Pruritis 12/20/17 12:00 01/19/18 11:59 Escitalopram Oxalate (Lexapro) 10 mg DAILY ORAL 12/21/17 11:00 01/20/18 10:59 12/25/17 09:25 Famotidine (Pepcid) 20 mg QHS ORAL 12/21/17 21:00 01/20/18 20:59 12/24/17 20:32 Heparin Sodium (Porcine) (Heparin 5000 units/ml) 5,000 units EVERY 12 HOURS SUBQ 12/20/17 21:00 01/19/18 20:59 Hydromorphone HCl (Dilaudid) 1 mg Q3H PRN IVP Moderate Pain (Pain Scale 4-6) 12/21/17 17:00 12/28/17 16:59 12/25/17 14:30 Levofloxacin 100 ml @ 100 mls/hr Q24H IVPB 12/22/17 13:00 12/29/17 12:59 12/25/17 12:15 Lorazepam (Ativan 2mg/ml 1ml) 1 mg Q4H PRN IV For Anxiety 12/20/17 15:00 12/27/17 14:59 12/25/17 12:15 Magnesium Oxide (Mag-Ox 400mg) 400 mg THREE TIMES A DAY ORAL 12/24/17 13:00 12/27/17 12:59 12/25/17 17:05 Metronidazole 100 ml @ 100 mls/hr Q8HR IVPB 12/22/17 14:00 12/29/17 13:59 12/25/17 15:17 Nitroglycerin (Ntg) 0.4 mg Q5M X 3 DOSES PRN SL Prn Chest Pain 12/20/17 12:00 01/19/18 11:59 Ondansetron HCl (Zofran) 4 mg Q6H PRN IVP Nausea & Vomiting 12/20/17 12:00 01/19/18 11:59 12/25/17 12:15 Pantoprazole (Protonix) 40 mg DAILY IVP 12/21/17 09:00 01/20/18 08:59 12/25/17 09:25 Polyethylene Glycol (Miralax) 17 gm HSPRN PRN ORAL Constipation 12/20/17 12:00 01/19/18 11:59 Spironolactone (Aldactone) 100 mg BID ORAL 12/20/17 22:00 01/19/18 21:59 12/25/17 17:05 Temazepam (Restoril) 15 mg HSPRN PRN ORAL Insomnia 12/20/17 12:00 12/27/17 11:59 JESSICA VERNON Dec 25, 2017 17:18
[2017-12-25 20:00] VITALS: BP 109/74
[2017-12-26] VITALS: BP 117/81
[2017-12-26] MEDS: D5 1/2NS 1,000 ML IV SCH ×2 (00:04→14:57)
[2017-12-26] MEDS: HYDROmorphone 1mg/ml Carpuject IVP PRN ×7 (00:58→23:54)
[2017-12-26 04:00] VITALS: BP 114/79
[2017-12-26] MEDS: LORazepam Inj 2mg/ml 1ml IV PRN ×3 (05:54→21:37)
[2017-12-26 07:21] LABS: BASOPHILS % (AUTO) 0.6 % (0.0-2.0); EOSINOPHILS % (AUTO) 2.8 % (0.0-3.0); HEMATOCRIT 40.9 % (42.0-52.0); HEMOGLOBIN 14.1 G/DL (14.2-18.0); LYMPHOCYTES % (AUTO) 20.4 % (20.0-45.0); MEAN CORPUSCULAR VOLUME 101 FL (80-99); MONOCYTES % (AUTO) 7.2 % (1.0-10.0); PLATELET COUNT 239 K/UL (150-450); RED BLOOD COUNT 4.05 M/UL (4.70-6.10); WHITE BLOOD COUNT 11.1 K/UL (4.8-10.8)
[2017-12-26 07:46] LABS: ANION GAP 10 mmol/L (5-15); BLOOD UREA NITROGEN 10 mg/dL (7-18); CALCIUM 8.9 MG/DL (8.5-10.1); CARBON DIOXIDE 23 MMOL/L (21-32); CHLORIDE 104 MMOL/L (98-107); CREATININE 0.8 MG/DL (0.55-1.30); POTASSIUM 4.1 MMOL/L (3.5-5.1); SODIUM 137 MMOL/L (136-145)
[2017-12-26] MEDS: Spironolactone 50mg tab ORAL SCH ×2 (08:33→17:31)
[2017-12-26] MEDS: Magnesium Oxide 400mg tab ORAL SCH ×3 (08:33→17:31)
[2017-12-26] MEDS: Pantoprazole Inj IVP SCH (08:34)
[2017-12-26] MEDS: Heparin 5000 units/ml inj SUBQ SCH ×2 (08:34→21:00)
[2017-12-26 08:36] VITALS: BP 106/64
--- NOTE | 2017-12-26 10:38 | Internal Med Progress Note ---
Subjective Date of Service: Dec 26, 2017 Physician Name Elsie Angeles Attending Physician Guillermo Blakely MD Current Medications Medications (Trade) Dose Ordered Sig/Brandon Route PRN Reason Start Time Stop Time Status Last Admin Dose Admin Acetaminophen (Tylenol) 650 mg Q4H PRN ORAL fever 12/20/17 12:00 01/19/18 11:59 Al Hydroxide/Mg Hydroxide (Mylanta II) 30 ml Q6H PRN ORAL dyspepsia 12/20/17 12:00 01/19/18 11:59 Daptomycin 350 mg/ Sodium Chloride 55 ml @ 110 mls/hr Q24H IV 12/23/17 15:00 12/30/17 14:59 12/25/17 17:05 Dextrose (Dextrose 50%) STAT PRN IV Hypoglycemia 12/20/17 12:00 01/19/18 11:59 Dextrose/Sodium Chloride 1,000 ml @ 75 mls/hr [id number] IV 12/20/17 13:00 01/19/18 12:59 12/26/17 00:04 Diphenhydramine HCl (Benadryl) 25 mg Q6H PRN ORAL Itching/Pruritis 12/20/17 12:00 01/19/18 11:59 Escitalopram Oxalate (Lexapro) 10 mg DAILY ORAL 12/21/17 11:00 01/20/18 10:59 12/26/17 08:33 Famotidine (Pepcid) 20 mg QHS ORAL 12/21/17 21:00 01/20/18 20:59 12/25/17 20:14 Heparin Sodium (Porcine) (Heparin 5000 units/ml) 5,000 units EVERY 12 HOURS SUBQ 12/20/17 21:00 01/19/18 20:59 Hydromorphone HCl (Dilaudid) 1 mg Q3H PRN IVP Moderate Pain (Pain Scale 4-6) 12/21/17 17:00 12/28/17 16:59 12/26/17 08:43 Levofloxacin 100 ml @ 100 mls/hr Q24H IVPB 12/22/17 13:00 12/29/17 12:59 12/25/17 12:15 Lorazepam (Ativan 2mg/ml 1ml) 1 mg Q4H PRN IV For Anxiety 12/20/17 15:00 12/27/17 14:59 12/26/17 05:54 Magnesium Oxide (Mag-Ox 400mg) 400 mg THREE TIMES A DAY ORAL 12/24/17 13:00 12/27/17 12:59 12/26/17 08:33 Metronidazole 100 ml @ 100 mls/hr Q8HR IVPB 12/22/17 14:00 12/29/17 13:59 12/26/17 05:42 Nitroglycerin (Ntg) 0.4 mg Q5M X 3 DOSES PRN SL Prn Chest Pain 12/20/17 12:00 01/19/18 11:59 Ondansetron HCl (Zofran) 4 mg Q6H PRN IVP Nausea & Vomiting 12/20/17 12:00 01/19/18 11:59 12/26/17 08:42 Pantoprazole (Protonix) 40 mg DAILY IVP 12/21/17 09:00 01/20/18 08:59 12/26/17 08:34 Polyethylene Glycol (Miralax) 17 gm HSPRN PRN ORAL Constipation 12/20/17 12:00 01/19/18 11:59 Spironolactone (Aldactone) 100 mg BID ORAL 12/20/17 22:00 01/19/18 21:59 12/26/17 08:33 Temazepam (Restoril) 15 mg HSPRN PRN ORAL Insomnia 12/20/17 12:00 12/27/17 11:59 Allergies: Coded Allergies: MORPHINE (Unverified Allergy, Intermediate, hives, 12/20/17) uncoded allergy, created coded allergy w/comments that was attached "hives" PENICILLINS (Verified Allergy, Unknown, 10/05/17) ROS Limited/Unobtainable: No Constitutional: Reports: no symptoms HEENT: Reports: no symptoms Cardiovascular: Reports: no symptoms Respiratory: Reports: no symptoms Gastrointestinal/Abdominal: Reports: no symptoms Genitourinary: Reports: no symptoms Neurologic/Psychiatric: Reports: no symptoms Subjective 32 YO M admitted with abdominal pain. Now cyclic vomiting syndrome. Positive blood culture. Cover for Patience Tang-Dr Blakely. Objective Last Vital Signs Date Time Temp Pulse Resp B/P (MAP) Pulse Ox O2 Delivery O2 Flow Rate FiO2 12/26/17 08:36 97.8 67 19 106/64 100 12/25/17 16:06 Room Air Laboratory Tests Test 12/26/17 04:35 White Blood Count 11.1 K/UL (4.8-10.8) H Red Blood Count 4.05 M/UL (4.70-6.10) L Hemoglobin 14.1 G/DL (14.2-18.0) L Hematocrit 40.9 % (42.0-52.0) L Mean Corpuscular Volume 101 FL (80-99) H Mean Corpuscular Hemoglobin 34.8 PG (27.0-31.0) H Mean Corpuscular Hemoglobin Concent 34.5 G/DL (32.0-36.0) Red Cell Distribution Width 12.0 % (11.6-14.8) Platelet Count 239 K/UL (150-450) Mean Platelet Volume 7.3 FL (6.5-10.1) Neutrophils (%) (Auto) 69.0 % (45.0-75.0) Lymphocytes (%) (Auto) 20.4 % (20.0-45.0) Monocytes (%) (Auto) 7.2 % (1.0-10.0) Eosinophils (%) (Auto) 2.8 % (0.0-3.0) Basophils (%) (Auto) 0.6 % (0.0-2.0) Sodium Level 137 MMOL/L (136-145) Potassium Level 4.1 MMOL/L (3.5-5.1) Chloride Level 104 MMOL/L (98-107) Carbon Dioxide Level 23 MMOL/L (21-32) Anion Gap 10 mmol/L (5-15) Blood Urea Nitrogen 10 mg/dL (7-18) Creatinine 0.8 MG/DL (0.55-1.30) Estimat Glomerular Filtration Rate > 60 mL/min (>60) Glucose Level 98 MG/DL (74-106) Calcium Level 8.9 MG/DL (8.5-10.1) Microbiology Date/Time Source Procedure Growth Status 12/23/17 16:11 Blood Blood Culture - Preliminary NO GROWTH AFTER 48 HOURS Resulted 12/23/17 16:01 Blood Blood Culture - Preliminary NO GROWTH AFTER 48 HOURS Resulted Intake and Output 12/25/17 12/26/17 19:00 07:00 Intake Total 1980 ml 525 ml Balance 1980 ml 525 ml Intake Oral 1080 ml IV Total 900 ml 525 ml # Voids 6 2 # Bowel Movements 1 Objective General Appearance: alert, moderate distress, thin EENT: PERRL/EOMI, normal ENT inspection Neck: non-tender, normal alignment, supple, normal inspection Cardiovascular: normal peripheral pulses, normal rate, regular rhythm, no gallop/murmur, no JVD Respiratory/Chest: chest wall non-tender, lungs clear, normal breath sounds, no respiratory distress, no accessory muscle use Abdomen: normal bowel sounds, non tender, soft, no organomegaly, no mass Extremities: normal range of motion, non-tender 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 (5) Left flank pain Assessment & Plan: CT urogram = NO renal calculus. ? cystitis vs enteritis. Continue levaquin (6) Leukocytosis, unspecified Assessment & Plan: resolving. Cont ertapenem per ID (7) Cyclic vomiting syndrome Assessment & Plan: May require Endoscopy-see GI note (8) Bacteremia Assessment & Plan: Strep Viridans. Continue levaquin and daptomycin per ID. Repeat blood culture pending Status: stable Assessment/Plan Discharge planning ELSIE ANGELES Dec 26, 2017 10:38
--- NOTE | 2017-12-26 10:53 | GI Progress Note ---
Assessment/Plan Problems: (1) Nausea & vomiting ICD Codes: R11.2 - Nausea with vomiting, unspecified SNOMED: 25610266 (2) Cyclic vomiting syndrome ICD Codes: G43.A0 - Cyclical vomiting, not intractable SNOMED: 13332138 (3) Anxiety ICD Codes: F41.9 - Anxiety disorder, unspecified SNOMED: 62491100 (4) Abdominal pain ICD Codes: R10.9 - Unspecified abdominal pain SNOMED: 98008387 Status: stable, unchanged Status Narrative Discussed with Dr. Kahn. Assessment/Plan utox positive for marijuana wean down narcotics symptomatic treatment at this time ppi daily, will add zantac qhs defer reglan, has drug interaction with SNRI zofran prn regular diet, tolerating fu labs Subjective Subjective abdominal pain improved tolerating diet Objective Last 24 Hour Vital Signs Date Time Temp Pulse Resp B/P (MAP) Pulse Ox O2 Delivery O2 Flow Rate FiO2 12/26/17 08:36 97.8 67 19 106/64 100 12/26/17 04:00 97.6 73 21 114/79 98 12/26/17 00:00 97.6 74 20 117/81 100 12/25/17 20:00 98.5 75 20 109/74 94 12/25/17 18:35 97.2 12/25/17 16:06 97.2 81 21 133/81 97 Room Air Intake and Output 12/25/17 12/26/17 19:00 07:00 Intake Total 1980 ml 525 ml Balance 1980 ml 525 ml Intake Oral 1080 ml IV Total 900 ml 525 ml # Voids 6 2 # Bowel Movements 1 Laboratory Tests Test 12/26/17 04:35 White Blood Count 11.1 K/UL (4.8-10.8) H Red Blood Count 4.05 M/UL (4.70-6.10) L Hemoglobin 14.1 G/DL (14.2-18.0) L Hematocrit 40.9 % (42.0-52.0) L Mean Corpuscular Volume 101 FL (80-99) H Mean Corpuscular Hemoglobin 34.8 PG (27.0-31.0) H Mean Corpuscular Hemoglobin Concent 34.5 G/DL (32.0-36.0) Red Cell Distribution Width 12.0 % (11.6-14.8) Platelet Count 239 K/UL (150-450) Mean Platelet Volume 7.3 FL (6.5-10.1) Neutrophils (%) (Auto) 69.0 % (45.0-75.0) Lymphocytes (%) (Auto) 20.4 % (20.0-45.0) Monocytes (%) (Auto) 7.2 % (1.0-10.0) Eosinophils (%) (Auto) 2.8 % (0.0-3.0) Basophils (%) (Auto) 0.6 % (0.0-2.0) Sodium Level 137 MMOL/L (136-145) Potassium Level 4.1 MMOL/L (3.5-5.1) Chloride Level 104 MMOL/L (98-107) Carbon Dioxide Level 23 MMOL/L (21-32) Anion Gap 10 mmol/L (5-15) Blood Urea Nitrogen 10 mg/dL (7-18) Creatinine 0.8 MG/DL (0.55-1.30) Estimat Glomerular Filtration Rate > 60 mL/min (>60) Glucose Level 98 MG/DL (74-106) Calcium Level 8.9 MG/DL (8.5-10.1) Height (Feet): 5 Height (Inches): 11.00 Weight (Pounds): 130 General Appearance: WD/WN, no apparent distress, alert Cardiovascular: normal rate Respiratory/Chest: normal breath sounds, no respiratory distress Abdominal Exam: normal bowel sounds, non tender, soft Extremities: normal range of motion, non-tender Elise Mosqueda N.P. Dec 26, 2017 10:53
--- NOTE | 2017-12-26 11:30 | Infectious Diseases Prog Note ---
Assessment/Plan Assessment/Plan The patient is a 32-year-old male to female transgender ( on Aldactone and Estrogen Inj ) S. viridans bacteremia- Patient has only 1/4 Bcx, with repeat Bcx NTD, normal inflammatory markers, afebrile, no obvious vegetations on echo. Possibly is contaminant vs transient bacteremia from enteritis and diarrhea. Bcx 1/ s. viridans; Bcx 12/23 NTD 2dEcho: Focal aortic valve sclerosis with adequate cusp excursion. Thickened mitral valve leaflets with normal excursion. Mild mitral annulus and aortic root calcification. Pulmonic valve not well visualized.Normal tricuspid valve structure. Leukocytosis ( M/I due to acute stress and vomiting episodes)improved, stable Cyclic vomiting, chronic, doubt infectious etiology Diarrhea, chronic, ro parasitic infections CT: Questionable thickening of some small bowel loops possibly reflective of an enteritis versus underdistention. -stool cx normal oscar -ova +p neg x1 HIV Neg ?cystitis HU +; ucx neg CT: No evidence of urinary tract stone or hydronephrosis as questioned clinically. Mild thickening of the bladder HIV neg Marfan syndrome history of spontaneous pneumothorax hx of Pancreatitis Anxiety smoker (tobacco and marijuana) patient denies any IV drug abuse or alcohol abuse history of appendectomy. PLAN: Continue Levaquin and Flagyl d# / and d/c Daptomycin #4 -12/23 SP Linezolid x1 -12/22 SP Aztreonam #3 -f/u repeat Bcx- if recurrent bacteremia, obtain CRYSTAL -if febrile, repeats 2 sets of Bcx Monitor CBC. Monitor BMP. cultures (blood and urine). f/u Stool for C. difficile, Cryptosporidium, and modified AFB stain, Giardia, cyclospora/isospora, microsporidium GI following Discussed with Dr Choudhury Subjective Allergies: Coded Allergies: MORPHINE (Unverified Allergy, Intermediate, hives, 12/20/17) uncoded allergy, created coded allergy w/comments that was attached "hives" PENICILLINS (Verified Allergy, Unknown, 10/05/17) Subjective afebrile leukocytosis stable repeat Bcx NTD normal ESR and CRP diarrhea improving Objective Vital Signs Last 24 Hour Vital Signs Date Time Temp Pulse Resp B/P (MAP) Pulse Ox O2 Delivery O2 Flow Rate FiO2 12/26/17 08:36 97.8 67 19 106/64 100 12/26/17 04:00 97.6 73 21 114/79 98 12/26/17 00:00 97.6 74 20 117/81 100 12/25/17 20:00 98.5 75 20 109/74 94 12/25/17 18:35 97.2 12/25/17 16:06 97.2 81 21 133/81 97 Room Air Height (Feet): 5 Height (Inches): 11.00 Weight (Pounds): 130 Objective General Appearance: cachetic Lines, tubes and drains: peripheral HEENT: normocephalic, atraumatic Neck: non-tender, normal alignment Respiratory/Chest: chest wall non-tender, lungs clear Cardiovascular/Chest: normal peripheral pulses, normal rate Abdomen: normal bowel sounds, non tender Genitourinary/Rectal: normal genital exam, normal rectal exam Skin Exam: normal pigmentation Microbiology Date/Time Source Procedure Growth Status 12/23/17 16:11 Blood Blood Culture - Preliminary NO GROWTH AFTER 48 HOURS Resulted 12/23/17 16:01 Blood Blood Culture - Preliminary NO GROWTH AFTER 48 HOURS Resulted Laboratory Tests Test 12/26/17 04:35 White Blood Count 11.1 K/UL (4.8-10.8) H Red Blood Count 4.05 M/UL (4.70-6.10) L Hemoglobin 14.1 G/DL (14.2-18.0) L Hematocrit 40.9 % (42.0-52.0) L Mean Corpuscular Volume 101 FL (80-99) H Mean Corpuscular Hemoglobin 34.8 PG (27.0-31.0) H Mean Corpuscular Hemoglobin Concent 34.5 G/DL (32.0-36.0) Red Cell Distribution Width 12.0 % (11.6-14.8) Platelet Count 239 K/UL (150-450) Mean Platelet Volume 7.3 FL (6.5-10.1) Neutrophils (%) (Auto) 69.0 % (45.0-75.0) Lymphocytes (%) (Auto) 20.4 % (20.0-45.0) Monocytes (%) (Auto) 7.2 % (1.0-10.0) Eosinophils (%) (Auto) 2.8 % (0.0-3.0) Basophils (%) (Auto) 0.6 % (0.0-2.0) Sodium Level 137 MMOL/L (136-145) Potassium Level 4.1 MMOL/L (3.5-5.1) Chloride Level 104 MMOL/L (98-107) Carbon Dioxide Level 23 MMOL/L (21-32) Anion Gap 10 mmol/L (5-15) Blood Urea Nitrogen 10 mg/dL (7-18) Creatinine 0.8 MG/DL (0.55-1.30) Estimat Glomerular Filtration Rate > 60 mL/min (>60) Glucose Level 98 MG/DL (74-106) Calcium Level 8.9 MG/DL (8.5-10.1) Current Medications Medications (Trade) Dose Ordered Sig/Brandon Route PRN Reason Start Time Stop Time Status Last Admin Dose Admin Acetaminophen (Tylenol) 650 mg Q4H PRN ORAL fever 12/20/17 12:00 01/19/18 11:59 Al Hydroxide/Mg Hydroxide (Mylanta II) 30 ml Q6H PRN ORAL dyspepsia 12/20/17 12:00 01/19/18 11:59 Daptomycin 350 mg/ Sodium Chloride 55 ml @ 110 mls/hr Q24H IV 12/23/17 15:00 12/30/17 14:59 12/25/17 17:05 Dextrose (Dextrose 50%) STAT PRN IV Hypoglycemia 12/20/17 12:00 01/19/18 11:59 Dextrose/Sodium Chloride 1,000 ml @ 75 mls/hr [id number] IV 12/20/17 13:00 01/19/18 12:59 12/26/17 00:04 Diphenhydramine HCl (Benadryl) 25 mg Q6H PRN ORAL Itching/Pruritis 12/20/17 12:00 01/19/18 11:59 Escitalopram Oxalate (Lexapro) 10 mg DAILY ORAL 12/21/17 11:00 01/20/18 10:59 12/26/17 08:33 Famotidine (Pepcid) 20 mg QHS ORAL 12/21/17 21:00 01/20/18 20:59 12/25/17 20:14 Heparin Sodium (Porcine) (Heparin 5000 units/ml) 5,000 units EVERY 12 HOURS SUBQ 12/20/17 21:00 01/19/18 20:59 Hydromorphone HCl (Dilaudid) 1 mg Q3H PRN IVP Moderate Pain (Pain Scale 4-6) 12/21/17 17:00 12/28/17 16:59 12/26/17 08:43 Levofloxacin 100 ml @ 100 mls/hr Q24H IVPB 12/22/17 13:00 12/29/17 12:59 12/25/17 12:15 Lorazepam (Ativan 2mg/ml 1ml) 1 mg Q4H PRN IV For Anxiety 12/20/17 15:00 12/27/17 14:59 12/26/17 05:54 Magnesium Oxide (Mag-Ox 400mg) 400 mg THREE TIMES A DAY ORAL 12/24/17 13:00 12/27/17 12:59 12/26/17 08:33 Metronidazole 100 ml @ 100 mls/hr Q8HR IVPB 12/22/17 14:00 12/29/17 13:59 12/26/17 05:42 Nitroglycerin (Ntg) 0.4 mg Q5M X 3 DOSES PRN SL Prn Chest Pain 12/20/17 12:00 01/19/18 11:59 Ondansetron HCl (Zofran) 4 mg Q6H PRN IVP Nausea & Vomiting 12/20/17 12:00 01/19/18 11:59 12/26/17 08:42 Pantoprazole (Protonix) 40 mg DAILY IVP 12/21/17 09:00 01/20/18 08:59 12/26/17 08:34 Polyethylene Glycol (Miralax) 17 gm HSPRN PRN ORAL Constipation 12/20/17 12:00 01/19/18 11:59 Spironolactone (Aldactone) 100 mg BID ORAL 12/20/17 22:00 01/19/18 21:59 12/26/17 08:33 Temazepam (Restoril) 15 mg HSPRN PRN ORAL Insomnia 12/20/17 12:00 12/27/17 11:59 Susan Vizcaino M.D. Dec 26, 2017 11:30
[2017-12-26 12:06] VITALS: BP 112/64
[2017-12-26] MEDS: metroNIDAZOLE 500mg tab ORAL SCH ×3 (12:15→21:37)
[2017-12-26 15:53] VITALS: BP 111/74
--- NOTE | 2017-12-26 17:26 | Pulmonology Progress Note ---
Assessment/Plan Problems: (1) Bacteremia (2) Infectious enteritis (3) Hx of appendectomy (4) Abdominal pain Assessment/Plan wbc lower slightly stool pending symptomatic treatment Psych evaluation noted pain is better BC positive for GPC in chains, repeat one are negative dc home Subjective ROS Limited/Unobtainable: No Interval Events: very dramatic and hysterial about pain, but facial expression doesn't show Allergies: Coded Allergies: MORPHINE (Unverified Allergy, Intermediate, hives, 12/20/17) uncoded allergy, created coded allergy w/comments that was attached "hives" PENICILLINS (Verified Allergy, Unknown, 10/05/17) Objective Last 24 Hour Vital Signs Date Time Temp Pulse Resp B/P (MAP) Pulse Ox O2 Delivery O2 Flow Rate FiO2 12/26/17 15:53 97.6 83 18 111/74 97 12/26/17 12:06 97.6 75 19 112/64 99 12/26/17 08:36 97.8 67 19 106/64 100 12/26/17 04:00 97.6 73 21 114/79 98 12/26/17 00:00 97.6 74 20 117/81 100 12/25/17 20:00 98.5 75 20 109/74 94 12/25/17 18:35 97.2 Intake and Output 12/25/17 12/26/17 19:00 07:00 Intake Total 1980 ml 525 ml Balance 1980 ml 525 ml Intake Oral 1080 ml IV Total 900 ml 525 ml # Voids 6 2 # Bowel Movements 1 Objective General Appearance: cachetic Lines, tubes and drains: peripheral HEENT: normocephalic, atraumatic Neck: non-tender, normal alignment Respiratory/Chest: chest wall non-tender, lungs clear Cardiovascular/Chest: normal peripheral pulses, normal rate Abdomen: normal bowel sounds, non tender Genitourinary/Rectal: normal genital exam, normal rectal exam Skin Exam: normal pigmentation Laboratory Tests 12/26/17 04:35: White Blood Count 11.1H, Red Blood Count 4.05L, Hemoglobin 14.1L, Hematocrit 40.9L, Mean Corpuscular Volume 101H, Mean Corpuscular Hemoglobin 34.8H, Mean Corpuscular Hemoglobin Concent 34.5, Red Cell Distribution Width 12.0, Platelet Count 239, Mean Platelet Volume 7.3, Neutrophils (%) (Auto) 69.0, Lymphocytes (% ) (Auto) 20.4, Monocytes (%) (Auto) 7.2, Eosinophils (%) (Auto) 2.8, Basophils ( %) (Auto) 0.6, Sodium Level 137, Potassium Level 4.1, Chloride Level 104, Carbon Dioxide Level 23, Anion Gap 10, Blood Urea Nitrogen 10, Creatinine 0.8, Estimat Glomerular Filtration Rate > 60, Glucose Level 98, Calcium Level 8.9 Current Medications Medications (Trade) Dose Ordered Sig/Brandon Route PRN Reason Start Time Stop Time Status Last Admin Dose Admin Acetaminophen (Tylenol) 650 mg Q4H PRN ORAL fever 12/20/17 12:00 01/19/18 11:59 Al Hydroxide/Mg Hydroxide (Mylanta II) 30 ml Q6H PRN ORAL dyspepsia 12/20/17 12:00 01/19/18 11:59 Dextrose (Dextrose 50%) STAT PRN IV Hypoglycemia 12/20/17 12:00 01/19/18 11:59 Dextrose/Sodium Chloride 1,000 ml @ 75 mls/hr [id number] IV 12/20/17 13:00 01/19/18 12:59 12/26/17 14:57 Diphenhydramine HCl (Benadryl) 25 mg Q6H PRN ORAL Itching/Pruritis 12/20/17 12:00 01/19/18 11:59 Escitalopram Oxalate (Lexapro) 10 mg DAILY ORAL 12/21/17 11:00 01/20/18 10:59 12/26/17 08:33 Famotidine (Pepcid) 20 mg QHS ORAL 12/21/17 21:00 01/20/18 20:59 12/25/17 20:14 Heparin Sodium (Porcine) (Heparin 5000 units/ml) 5,000 units EVERY 12 HOURS SUBQ 12/20/17 21:00 01/19/18 20:59 Hydromorphone HCl (Dilaudid) 1 mg Q3H PRN IVP Moderate Pain (Pain Scale 4-6) 12/21/17 17:00 12/28/17 16:59 12/26/17 15:11 Levofloxacin (Levaquin) 750 mg DAILY@1200 ORAL 12/26/17 12:00 01/02/18 11:59 12/26/17 12:15 Lorazepam (Ativan 2mg/ml 1ml) 1 mg Q4H PRN IV For Anxiety 12/20/17 15:00 12/27/17 14:59 12/26/17 05:54 Magnesium Oxide (Mag-Ox 400mg) 400 mg THREE TIMES A DAY ORAL 12/24/17 13:00 12/27/17 12:59 12/26/17 12:15 Metronidazole (Flagyl) 500 mg Q8HR ORAL 12/26/17 13:30 01/02/18 13:29 12/26/17 14:57 Nitroglycerin (Ntg) 0.4 mg Q5M X 3 DOSES PRN SL Prn Chest Pain 12/20/17 12:00 01/19/18 11:59 Ondansetron HCl (Zofran) 4 mg Q6H PRN IVP Nausea & Vomiting 12/20/17 12:00 01/19/18 11:59 12/26/17 14:57 Pantoprazole (Protonix) 40 mg DAILY IVP 12/21/17 09:00 01/20/18 08:59 12/26/17 08:34 Polyethylene Glycol (Miralax) 17 gm HSPRN PRN ORAL Constipation 12/20/17 12:00 01/19/18 11:59 Prochlorperazine (Compazine) 10 mg Q6H PRN IVP Nausea & Vomiting 12/26/17 14:00 01/25/18 13:59 Spironolactone (Aldactone) 100 mg BID ORAL 12/20/17 22:00 01/19/18 21:59 12/26/17 08:33 Temazepam (Restoril) 15 mg HSPRN PRN ORAL Insomnia 12/20/17 12:00 12/27/17 11:59 JESSICA VERNON Dec 26, 2017 17:26
[2017-12-26 20:03] VITALS: BP 112/73
[2017-12-27] VITALS: BP 103/70
[2017-12-27] MEDS: HYDROmorphone 1mg/ml Carpuject IVP PRN ×5 (03:00→15:36)
[2017-12-27 04:00] VITALS: BP 106/58
[2017-12-27] MEDS: LORazepam Inj 2mg/ml 1ml IV PRN ×2 (04:10→10:57)
[2017-12-27] MEDS: D5 1/2NS 1,000 ML IV SCH (04:49)
[2017-12-27] MEDS: metroNIDAZOLE 500mg tab ORAL SCH ×2 (05:37→12:18)
[2017-12-27 08:00] VITALS: BP 97/64
[2017-12-27] MEDS: Heparin 5000 units/ml inj SUBQ SCH (09:00)
[2017-12-27] MEDS: Pantoprazole Inj IVP SCH (09:27)
[2017-12-27] MEDS: Magnesium Oxide 400mg tab ORAL SCH (09:28)
[2017-12-27] MEDS: Spironolactone 50mg tab ORAL SCH (09:28)
--- NOTE | 2017-12-27 10:12 | GI Progress Note ---
Assessment/Plan Problems: (1) Nausea & vomiting ICD Codes: R11.2 - Nausea with vomiting, unspecified SNOMED: 49204579 (2) Cyclic vomiting syndrome ICD Codes: G43.A0 - Cyclical vomiting, not intractable SNOMED: 58302075 (3) Anxiety ICD Codes: F41.9 - Anxiety disorder, unspecified SNOMED: 74806841 (4) Abdominal pain ICD Codes: R10.9 - Unspecified abdominal pain SNOMED: 76567025 Status: stable Status Narrative Discussed with Dr. Kahn. Assessment/Plan utox positive for marijuana wean down narcotics symptomatic treatment at this time ppi daily, will add zantac qhs defer reglan, has drug interaction with SNRI zofran prn / compazine prn regular diet, tolerating fu labs Subjective Subjective abdominal pain improved tolerating diet Objective Last 24 Hour Vital Signs Date Time Temp Pulse Resp B/P (MAP) Pulse Ox O2 Delivery O2 Flow Rate FiO2 12/27/17 08:00 98.2 84 20 97/64 99 12/27/17 04:00 97.7 69 18 106/58 100 Room Air 12/27/17 00:00 97.3 64 18 103/70 99 Room Air 12/26/17 20:03 98.2 78 18 112/73 95 Room Air 12/26/17 15:53 97.6 83 18 111/74 97 12/26/17 12:06 97.6 75 19 112/64 99 Intake and Output 12/26/17 12/27/17 19:00 07:00 Intake Total 1445 ml 1075 ml Balance 1445 ml 1075 ml Intake Oral 620 ml 250 ml IV Total 825 ml 825 ml # Voids 5 2 # Bowel Movements 1 Height (Feet): 5 Height (Inches): 11.00 Weight (Pounds): 130 General Appearance: WD/WN, no apparent distress, alert Cardiovascular: normal rate Respiratory/Chest: normal breath sounds, no respiratory distress Abdominal Exam: normal bowel sounds, non tender, soft Extremities: normal range of motion, non-tender Elise Mosqueda N.P. Dec 27, 2017 10:12
[2017-12-27 10:49] LABS: BASOPHILS % (AUTO) 0.9 % (0.0-2.0); EOSINOPHILS % (AUTO) 3.6 % (0.0-3.0); HEMATOCRIT 42.7 % (42.0-52.0); HEMOGLOBIN 14.6 G/DL (14.2-18.0); LYMPHOCYTES % (AUTO) 22.7 % (20.0-45.0); MEAN CORPUSCULAR VOLUME 102 FL (80-99); MONOCYTES % (AUTO) 8.5 % (1.0-10.0); NEUTROPHILS % (AUTO) 64.4 % (45.0-75.0); PLATELET COUNT 248 K/UL (150-450); RED BLOOD COUNT 4.17 M/UL (4.70-6.10); RED CELL DISTRIBUTION WIDTH 11.7 % (11.6-14.8); WHITE BLOOD COUNT 9.5 K/UL (4.8-10.8)
[2017-12-27 10:53] LABS: ALANINE AMINOTRANSFERASE 16 U/L (12-78); ALBUMIN 3.6 G/DL (3.4-5.0); ALBUMIN/GLOBULIN RATIO 1.2 (1.0-2.7); ALKALINE PHOSPHATASE 55 U/L (46-116); ANION GAP 3 mmol/L (5-15); ASPARTATE AMINO TRANSFERASE 17 U/L (15-37); BILIRUBIN,TOTAL 0.3 MG/DL (0.2-1.0); BLOOD UREA NITROGEN 13 mg/dL (7-18); CALCIUM 8.8 MG/DL (8.5-10.1); CARBON DIOXIDE 30 MMOL/L (21-32); CHLORIDE 103 MMOL/L (98-107); CREATININE 0.8 MG/DL (0.55-1.30); POTASSIUM 4.3 MMOL/L (3.5-5.1); SODIUM 136 MMOL/L (136-145)
[2017-12-27 11:28] LABS: PHOSPHORUS 3.4 MG/DL (2.5-4.9)
[2017-12-27 12:00] VITALS: BP 99/67
--- NOTE | 2017-12-27 12:27 | Infectious Diseases Prog Note ---
Assessment/Plan Assessment/Plan The patient is a 32-year-old male to female transgender ( on Aldactone and Estrogen Inj ) S. viridans bacteremia- Patient has only 1/4 Bcx, with repeat Bcx NTD, normal inflammatory markers, afebrile, no obvious vegetations on echo. Possibly is contaminant vs transient bacteremia from enteritis and diarrhea. Bcx 1/ s. viridans; Bcx 12/23 NTD 2dEcho: Focal aortic valve sclerosis with adequate cusp excursion. Thickened mitral valve leaflets with normal excursion. Mild mitral annulus and aortic root calcification. Pulmonic valve not well visualized.Normal tricuspid valve structure. Leukocytosis ( M/I due to acute stress and vomiting episodes)- resolved Cyclic vomiting, chronic, doubt infectious etiology Diarrhea, chronic, ro parasitic infections CT: Questionable thickening of some small bowel loops possibly reflective of an enteritis versus underdistention. -stool cx normal oscar -ova +p neg x1 -cryptosporidium neg HIV Neg ?cystitis HU +; ucx neg CT: No evidence of urinary tract stone or hydronephrosis as questioned clinically. Mild thickening of the bladder HIV neg Marfan syndrome history of spontaneous pneumothorax hx of Pancreatitis Anxiety smoker (tobacco and marijuana) patient denies any IV drug abuse or alcohol abuse history of appendectomy. PLAN: Continue Levaquin and Flagyl d# 6/7 -12/26 SP Daptomycin #4 -12/23 SP Linezolid x1 -12/22 SP Aztreonam #3 -f/u repeat Bcx- if recurrent bacteremia, obtain CRYSTAL -if febrile, repeats 2 sets of Bcx Monitor CBC. Monitor BMP. cultures (blood and urine). f/u Stool for C. difficile, and modified AFB stain, Giardia, cyclospora/isospora , microsporidium GI following Discussed with Dr Choudhury Subjective Allergies: Coded Allergies: MORPHINE (Unverified Allergy, Intermediate, hives, 12/20/17) uncoded allergy, created coded allergy w/comments that was attached "hives" PENICILLINS (Verified Allergy, Unknown, 10/05/17) Subjective afebrile leukocytosis resolved repeat Bcx NTD normal ESR and CRP diarrhea improving Objective Vital Signs Last 24 Hour Vital Signs Date Time Temp Pulse Resp B/P (MAP) Pulse Ox O2 Delivery O2 Flow Rate FiO2 12/27/17 08:00 98.2 84 20 97/64 99 12/27/17 04:00 97.7 69 18 106/58 100 Room Air 12/27/17 00:00 97.3 64 18 103/70 99 Room Air 12/26/17 20:03 98.2 78 18 112/73 95 Room Air 12/26/17 15:53 97.6 83 18 111/74 97 Height (Feet): 5 Height (Inches): 11.00 Weight (Pounds): 130 Objective General Appearance: cachetic Lines, tubes and drains: peripheral HEENT: normocephalic, atraumatic Neck: non-tender, normal alignment Respiratory/Chest: chest wall non-tender, lungs clear Cardiovascular/Chest: normal peripheral pulses, normal rate Abdomen: normal bowel sounds, non tender Genitourinary/Rectal: normal genital exam, normal rectal exam Skin Exam: normal pigmentation Laboratory Tests Test 12/27/17 09:00 White Blood Count 9.5 K/UL (4.8-10.8) Red Blood Count 4.17 M/UL (4.70-6.10) L Hemoglobin 14.6 G/DL (14.2-18.0) Hematocrit 42.7 % (42.0-52.0) Mean Corpuscular Volume 102 FL (80-99) H Mean Corpuscular Hemoglobin 35.1 PG (27.0-31.0) H Mean Corpuscular Hemoglobin Concent 34.3 G/DL (32.0-36.0) Red Cell Distribution Width 11.7 % (11.6-14.8) Platelet Count 248 K/UL (150-450) Mean Platelet Volume 7.5 FL (6.5-10.1) Neutrophils (%) (Auto) 64.4 % (45.0-75.0) Lymphocytes (%) (Auto) 22.7 % (20.0-45.0) Monocytes (%) (Auto) 8.5 % (1.0-10.0) Eosinophils (%) (Auto) 3.6 % (0.0-3.0) H Basophils (%) (Auto) 0.9 % (0.0-2.0) Erythrocyte Sedimentation Rate 3 MM/HR (0-15) Sodium Level 136 MMOL/L (136-145) Potassium Level 4.3 MMOL/L (3.5-5.1) Chloride Level 103 MMOL/L (98-107) Carbon Dioxide Level 30 MMOL/L (21-32) Anion Gap 3 mmol/L (5-15) L Blood Urea Nitrogen 13 mg/dL (7-18) Creatinine 0.8 MG/DL (0.55-1.30) Estimat Glomerular Filtration Rate > 60 mL/min (>60) Glucose Level 65 MG/DL (74-106) L Calcium Level 8.8 MG/DL (8.5-10.1) Phosphorus Level 3.4 MG/DL (2.5-4.9) Magnesium Level 1.7 MG/DL (1.8-2.4) L Total Bilirubin 0.3 MG/DL (0.2-1.0) Aspartate Amino Transf (AST/SGOT) 17 U/L (15-37) Alanine Aminotransferase (ALT/SGPT) 16 U/L (12-78) Alkaline Phosphatase 55 U/L (46-116) C-Reactive Protein, Quantitative < 0.4 mg/dL (0.00-0.90) Total Protein 6.5 G/DL (6.4-8.2) Albumin 3.6 G/DL (3.4-5.0) Globulin 2.9 g/dL Albumin/Globulin Ratio 1.2 (1.0-2.7) Current Medications Medications (Trade) Dose Ordered Sig/Brandon Route PRN Reason Start Time Stop Time Status Last Admin Dose Admin Acetaminophen (Tylenol) 650 mg Q4H PRN ORAL fever 12/20/17 12:00 01/19/18 11:59 Al Hydroxide/Mg Hydroxide (Mylanta II) 30 ml Q6H PRN ORAL dyspepsia 12/20/17 12:00 01/19/18 11:59 Dextrose (Dextrose 50%) STAT PRN IV Hypoglycemia 12/20/17 12:00 01/19/18 11:59 Dextrose/Sodium Chloride 1,000 ml @ 75 mls/hr [id number] IV 12/20/17 13:00 01/19/18 12:59 12/27/17 04:49 Diphenhydramine HCl (Benadryl) 25 mg Q6H PRN ORAL Itching/Pruritis 12/20/17 12:00 01/19/18 11:59 Escitalopram Oxalate (Lexapro) 10 mg DAILY ORAL 12/21/17 11:00 01/20/18 10:59 12/27/17 09:28 Famotidine (Pepcid) 20 mg QHS ORAL 12/21/17 21:00 01/20/18 20:59 12/26/17 21:37 Heparin Sodium (Porcine) (Heparin 5000 units/ml) 5,000 units EVERY 12 HOURS SUBQ 12/20/17 21:00 01/19/18 20:59 Hydromorphone HCl (Dilaudid) 1 mg Q3H PRN IVP Moderate Pain (Pain Scale 4-6) 12/21/17 17:00 12/28/17 16:59 12/27/17 12:23 Levofloxacin (Levaquin) 750 mg DAILY@1200 ORAL 12/26/17 12:00 01/02/18 11:59 12/27/17 12:18 Lorazepam (Ativan 2mg/ml 1ml) 1 mg Q4H PRN IV For Anxiety 12/20/17 15:00 12/27/17 14:59 12/27/17 10:57 Magnesium Oxide (Mag-Ox 400mg) 400 mg THREE TIMES A DAY ORAL 12/24/17 13:00 12/27/17 12:59 12/27/17 09:28 Metronidazole (Flagyl) 500 mg Q8HR ORAL 12/26/17 13:30 01/02/18 13:29 12/27/17 12:18 Nitroglycerin (Ntg) 0.4 mg Q5M X 3 DOSES PRN SL Prn Chest Pain 12/20/17 12:00 01/19/18 11:59 Ondansetron HCl (Zofran) 4 mg Q6H PRN IVP Nausea & Vomiting 12/20/17 12:00 01/19/18 11:59 12/26/17 14:57 Pantoprazole (Protonix) 40 mg DAILY IVP 12/21/17 09:00 01/20/18 08:59 12/27/17 09:27 Polyethylene Glycol (Miralax) 17 gm HSPRN PRN ORAL Constipation 12/20/17 12:00 01/19/18 11:59 Prochlorperazine (Compazine) 10 mg Q6H PRN IVP Nausea & Vomiting 12/26/17 14:00 3/2/18 13:59 Spironolactone (Aldactone) 100 mg BID ORAL 12/20/17 22:00 01/19/18 21:59 12/27/17 09:28 Susan Vizcaino M.D. Dec 27, 2017 12:27
[2017-12-27] MEDS ORDERED: LEVOFLOXACIN750 MG ORAL (14:23)
[2017-12-27] MEDS ORDERED: METRONIDAZOLE500 MG ORAL (14:23)
[2017-12-27] MEDS ORDERED: LEXAPRO10 MG ORAL (14:23)
[2017-12-27] MEDS ORDERED: D5 1/2NS 1000ml IV ONE ×2 (16:24)
[2017-12-27] MEDS ORDERED: Tubing IV Secondary IV ONE ×2 (16:24)
--- NOTE | 2017-12-27 16:28 | Internal Med Progress Note ---
Subjective Date of Service: Dec 27, 2017 Physician Name AngelesGutierrez Attending Physician Guillermo Blakely MD Current Medications Medications (Trade) Dose Ordered Sig/Brandon Route PRN Reason Start Time Stop Time Status Last Admin Dose Admin Acetaminophen (Tylenol) 650 mg Q4H PRN ORAL fever 12/20/17 12:00 01/19/18 11:59 Al Hydroxide/Mg Hydroxide (Mylanta II) 30 ml Q6H PRN ORAL dyspepsia 12/20/17 12:00 01/19/18 11:59 Dextrose (Dextrose 50%) STAT PRN IV Hypoglycemia 12/20/17 12:00 01/19/18 11:59 Dextrose/Sodium Chloride 1,000 ml @ 75 mls/hr [id number] IV 12/20/17 13:00 01/19/18 12:59 12/27/17 04:49 Diphenhydramine HCl (Benadryl) 25 mg Q6H PRN ORAL Itching/Pruritis 12/20/17 12:00 01/19/18 11:59 Escitalopram Oxalate (Lexapro) 10 mg DAILY ORAL 12/21/17 11:00 01/20/18 10:59 12/27/17 09:28 Famotidine (Pepcid) 20 mg QHS ORAL 12/21/17 21:00 01/20/18 20:59 12/26/17 21:37 Heparin Sodium (Porcine) (Heparin 5000 units/ml) 5,000 units EVERY 12 HOURS SUBQ 12/20/17 21:00 01/19/18 20:59 Hydromorphone HCl (Dilaudid) 1 mg Q3H PRN IVP Moderate Pain (Pain Scale 4-6) 12/21/17 17:00 12/28/17 16:59 12/27/17 15:36 Levofloxacin (Levaquin) 750 mg DAILY@1200 ORAL 12/26/17 12:00 01/02/18 11:59 12/27/17 12:18 Metronidazole (Flagyl) 500 mg Q8HR ORAL 12/26/17 13:30 01/02/18 13:29 12/27/17 12:18 Nitroglycerin (Ntg) 0.4 mg Q5M X 3 DOSES PRN SL Prn Chest Pain 12/20/17 12:00 01/19/18 11:59 Ondansetron HCl (Zofran) 4 mg Q6H PRN IVP Nausea & Vomiting 12/20/17 12:00 01/19/18 11:59 12/26/17 14:57 Pantoprazole (Protonix) 40 mg DAILY IVP 12/21/17 09:00 01/20/18 08:59 12/27/17 09:27 Polyethylene Glycol (Miralax) 17 gm HSPRN PRN ORAL Constipation 12/20/17 12:00 01/19/18 11:59 Prochlorperazine (Compazine) 10 mg Q6H PRN IVP Nausea & Vomiting 12/26/17 14:00 01/25/18 13:59 Spironolactone (Aldactone) 100 mg BID ORAL 12/20/17 22:00 01/19/18 21:59 12/27/17 09:28 Allergies: Coded Allergies: MORPHINE (Unverified Allergy, Intermediate, hives, 12/20/17) uncoded allergy, created coded allergy w/comments that was attached "hives" PENICILLINS (Verified Allergy, Unknown, 10/05/17) Subjective 32 YO M admitted with abdominal pain. Now cyclic vomiting syndrome. 11/29 Positive blood culture. Cover for Int Med-Dr Blakely. Await Discharge home today Objective Last Vital Signs Date Time Temp Pulse Resp B/P (MAP) Pulse Ox O2 Delivery O2 Flow Rate FiO2 12/27/17 12:00 98.1 69 20 99/67 12/27/17 08:00 99 12/27/17 04:00 Room Air Laboratory Tests Test 12/27/17 09:00 White Blood Count 9.5 K/UL (4.8-10.8) Red Blood Count 4.17 M/UL (4.70-6.10) L Hemoglobin 14.6 G/DL (14.2-18.0) Hematocrit 42.7 % (42.0-52.0) Mean Corpuscular Volume 102 FL (80-99) H Mean Corpuscular Hemoglobin 35.1 PG (27.0-31.0) H Mean Corpuscular Hemoglobin Concent 34.3 G/DL (32.0-36.0) Red Cell Distribution Width 11.7 % (11.6-14.8) Platelet Count 248 K/UL (150-450) Mean Platelet Volume 7.5 FL (6.5-10.1) Neutrophils (%) (Auto) 64.4 % (45.0-75.0) Lymphocytes (%) (Auto) 22.7 % (20.0-45.0) Monocytes (%) (Auto) 8.5 % (1.0-10.0) Eosinophils (%) (Auto) 3.6 % (0.0-3.0) H Basophils (%) (Auto) 0.9 % (0.0-2.0) Erythrocyte Sedimentation Rate 3 MM/HR (0-15) Sodium Level 136 MMOL/L (136-145) Potassium Level 4.3 MMOL/L (3.5-5.1) Chloride Level 103 MMOL/L (98-107) Carbon Dioxide Level 30 MMOL/L (21-32) Anion Gap 3 mmol/L (5-15) L Blood Urea Nitrogen 13 mg/dL (7-18) Creatinine 0.8 MG/DL (0.55-1.30) Estimat Glomerular Filtration Rate > 60 mL/min (>60) Glucose Level 65 MG/DL (74-106) L Calcium Level 8.8 MG/DL (8.5-10.1) Phosphorus Level 3.4 MG/DL (2.5-4.9) Magnesium Level 1.7 MG/DL (1.8-2.4) L Total Bilirubin 0.3 MG/DL (0.2-1.0) Aspartate Amino Transf (AST/SGOT) 17 U/L (15-37) Alanine Aminotransferase (ALT/SGPT) 16 U/L (12-78) Alkaline Phosphatase 55 U/L (46-116) C-Reactive Protein, Quantitative < 0.4 mg/dL (0.00-0.90) Total Protein 6.5 G/DL (6.4-8.2) Albumin 3.6 G/DL (3.4-5.0) Globulin 2.9 g/dL Albumin/Globulin Ratio 1.2 (1.0-2.7) Intake and Output 12/26/17 12/27/17 19:00 07:00 Intake Total 1445 ml 1075 ml Balance 1445 ml 1075 ml Intake Oral 620 ml 250 ml IV Total 825 ml 825 ml # Voids 5 2 # Bowel Movements 1 Objective General Appearance: alert, moderate distress, thin EENT: PERRL/EOMI, normal ENT inspection Neck: non-tender, normal alignment, supple, normal inspection Cardiovascular: normal peripheral pulses, normal rate, regular rhythm, no gallop/murmur, no JVD Respiratory/Chest: chest wall non-tender, lungs clear, normal breath sounds, no respiratory distress, no accessory muscle use Abdomen: normal bowel sounds, non tender, soft, no organomegaly, no mass Extremities: normal range of motion, non-tender 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 (5) Left flank pain Assessment & Plan: CT urogram = NO renal calculus. ? cystitis vs enteritis. Continue levaquin day 6/7 (6) Leukocytosis, unspecified Assessment & Plan: resolving. Cont ertapenem per ID (7) Cyclic vomiting syndrome Assessment & Plan: does not require Endoscopy-see GI note (8) Bacteremia Assessment & Plan: Strep Viridans. Continue levaquin and flagyl day 6/7.. Repeat blood culture=no growth Status: stable Assessment/Plan Discharge home today GUTIERREZ ANGELES Dec 27, 2017 16:27
--- NOTE | 2017-12-27 19:08 | Pulmonology Progress Note ---
Assessment/Plan Problems: (1) Bacteremia (2) Infectious enteritis (3) Hx of appendectomy (4) Abdominal pain Assessment/Plan wbc wnl stool pending symptomatic treatment Psych evaluation noted pain is better dc home with outpatient f.u Subjective Interval Events: improving Allergies: Coded Allergies: MORPHINE (Unverified Allergy, Intermediate, hives, 12/20/17) uncoded allergy, created coded allergy w/comments that was attached "hives" PENICILLINS (Verified Allergy, Unknown, 10/05/17) Objective Last 24 Hour Vital Signs Date Time Temp Pulse Resp B/P (MAP) Pulse Ox O2 Delivery O2 Flow Rate FiO2 12/27/17 12:00 98.1 69 20 99/67 12/27/17 08:00 98.2 84 20 97/64 99 12/27/17 04:00 97.7 69 18 106/58 100 Room Air 12/27/17 00:00 97.3 64 18 103/70 99 Room Air 12/26/17 20:03 98.2 78 18 112/73 95 Room Air Intake and Output 12/26/17 12/27/17 19:00 07:00 Intake Total 1445 ml 1075 ml Balance 1445 ml 1075 ml Intake Oral 620 ml 250 ml IV Total 825 ml 825 ml # Voids 5 2 # Bowel Movements 1 Objective General Appearance: cachetic Lines, tubes and drains: peripheral HEENT: normocephalic, atraumatic Neck: non-tender, normal alignment Respiratory/Chest: chest wall non-tender, lungs clear Cardiovascular/Chest: normal peripheral pulses, normal rate Abdomen: normal bowel sounds, non tender Genitourinary/Rectal: normal genital exam, normal rectal exam Skin Exam: normal pigmentation Laboratory Tests 12/27/17 09:00: White Blood Count 9.5, Red Blood Count 4.17L, Hemoglobin 14.6, Hematocrit 42.7, Mean Corpuscular Volume 102H, Mean Corpuscular Hemoglobin 35.1H, Mean Corpuscular Hemoglobin Concent 34.3, Red Cell Distribution Width 11.7, Platelet Count 248, Mean Platelet Volume 7.5, Neutrophils (%) (Auto) 64.4, Lymphocytes (% ) (Auto) 22.7, Monocytes (%) (Auto) 8.5, Eosinophils (%) (Auto) 3.6H, Basophils (%) (Auto) 0.9, Erythrocyte Sedimentation Rate 3, Sodium Level 136, Potassium Level 4.3, Chloride Level 103, Carbon Dioxide Level 30, Anion Gap 3L, Blood Urea Nitrogen 13, Creatinine 0.8, Estimat Glomerular Filtration Rate > 60, Glucose Level 65L, Calcium Level 8.8, Phosphorus Level 3.4, Magnesium Level 1.7L , Total Bilirubin 0.3, Aspartate Amino Transf (AST/SGOT) 17, Alanine Aminotransferase (ALT/SGPT) 16, Alkaline Phosphatase 55, C-Reactive Protein, Quantitative < 0.4, Total Protein 6.5, Albumin 3.6, Globulin 2.9, Albumin/ Globulin Ratio 1.2 JESSICA VERNON Dec 27, 2017 19:08
--- NOTE | 2017-12-28 12:54 | Progress Note ---
DATE: 12/26/2017 SUBJECTIVE: The patient is doing well. No acute distress. Calm. No behavioral issues. The patient is denying any anxiety, is currently on Lexapro and Ativan. MENTAL STATUS EXAMINATION: The patient is alert and oriented times self, place, and situation he is in. Mood is neutral. Affect is flat. Thought process is linear. Thought content, no suicidal or homicidal ideation. Insight and judgment is fair. ASSESSMENT: 1. Depression. 2. Anxiety disorder. PLAN: 1. We will continue Lexapro. Continue the Ativan. 2. We will continue follow and readjust the medications. Jeferson Costa M.D. DR: SERENE JOB#: [id number] CC:
--- NOTE | 2017-12-28 15:02 | Discharge Summary ---
Discharge Summary Hospital Course Date of Admission Dec 20, 2017 at 10:04 Date of Discharge Dec 27, 2017 at 16:25 Admitting Diagnosis ABDOMINAL PAIN, DEHYDRATION HPI Sorin Gramajo is a 32 year old male who was admitted on Dec 20, 2017 at 10:04 for Abdominal Pain, Dehydration Hospital Course [id number] Discharge Discharge Disposition Patient was discharged to home Discharge Diagnoses: Tamela Beltre NP Dec 28, 2017 15:02
--- NOTE | 2017-12-29 06:00 | Discharge Summary 2 SIG ---
DATE OF ADMISSION: 12/20/2017 DATE OF DISCHARGE: 12/27/2017 ATTENDING PHYSICIAN: Guillermo Blakely M.D. CONSULTANTS: 1. Brandy Mcneill M.D. 2. Noman Flores M.D. 3. Ascencion Kahn M.D. 4. Susan Vizcaino M.D. 5. Jeferson Costa M.D. BRIEF HOSPITAL COURSE: The patient is a 32-year-old white male who presented with chief complaint of abdominal pain, nausea, and vomiting. He has history of chronic pancreatitis and has on and off nausea, vomiting, and diarrhea for a month. He was also complaining of severe epigastric pain. He presented to [place] ED and on evaluation WBC was elevated to 21. CT of the abdomen and pelvis showed no definite acute abnormality. There was no evidence of urinary tract stones or hydronephrosis. There was mild thickening of the bladder. Urine WBC was 2 to 4, urine RBC too many to count with leukocyte esterase +1. Urine toxicology was positive for marijuana. He was admitted for evaluation of abdominal pain with nausea, vomiting and diarrhea. Lipase was normal. He was given proton pump inhibitors and Zantac and Zofran. He was given full liquid diet and was advanced. Stool study was negative for ova and parasite, no Salmonella, Shigella, or Campylobacter. He was empirically started on aztreonam. Blood culture showed growth of strep viridans on 11/29. Repeat blood culture did not isolate any growth. He had normal inflammatory markers and has been afebrile. Echocardiogram done was negative for vegetations, EF was 55% to 60%. Repeat blood cultures did not isolate any growth. Leukocytosis most likely due to acute stress. Diarrhea was chronic, Cryptosporidium negative, and cultures were negative. Urine culture did not isolate any growth. Diet was advanced. He was tolerating diet. Compazine was added to his regimen. He was seen by Dr. Costa due to depression and anxiety and was given Lexapro and Ativan. He was given Levaquin and Flagyl. CT urogram showed no renal calculus. He was eventually cleared for discharge home to continue p.o. antibiotics. FINAL DIAGNOSES: 1. Bacteremia. 2. Cyclic vomiting syndrome. 3. Marfan syndrome. 4. Chronic diarrhea. 5. Chronic pancreatitis. 6. Infectious gastroenteritis. 7. Possible cystitis. 8. Marfan syndrome. 9. Anxiety. 10. Depression. 11. Smoker. 12. Positive drug abuse and alcohol abuse. DISPOSITION: The patient was discharged home. DISCHARGE MEDICATIONS: Refer to medication list. Continue with levofloxacin and metronidazole. DISCHARGE INSTRUCTIONS: Follow up with PMD in a week. Brandy Mcneill M.D. I have been assigned to dictate discharge summary on this account and I was not involved in the patient's management. Tamela Beltre N.P. DR: ALEX JOB#: [id number] CC:
--- NOTE | 2017-12-31 14:01 | Cardiology Report ---
APPROVED REPORT EKG Measurement Heart [id number] OR [id number] Normal sinus rhythm with sinus arrhythmia Biatrial enlargement Rightward axis Abnormal ECG
== END 2017-12-27 16:25 | disposition home or self-care (01) | DRG 249 ==
LOC: EMR 08:18 → 4E 10:04 → EDBEDREQ 10:10 → 4E 21:15
DX: A09 Infectious gastroenteritis and colitis, unspecified (principal); Q87.40 Marfan syndrome, unspecified; R78.81 Bacteremia; K86.1 Other chronic pancreatitis; N30.90 Cystitis, unspecified without hematuria; G43.A0 Cyclical vomiting, in migraine, not intractable; R10.9 Unspecified abdominal pain; Z90.49 Acquired absence of other specified parts of digestive tract; Z88.6 Allergy status to analgesic agent; Z88.0 Allergy status to penicillin; Z88.8 Allergy status to other drugs, medicaments and biological substances; F41.9 Anxiety disorder, unspecified; F17.200 Nicotine dependence, unspecified, uncomplicated; F32.9 Major depressive disorder, single episode, unspecified; F19.10 Other psychoactive substance abuse, uncomplicated; F10.10 Alcohol abuse, uncomplicated
CPT/HCPCS: 36415; 74177; 74178; 80048; 80053; 80307; 81003; 82105; 82140; 82150; 82378; 82550; 82607; 82746; 83690; 83735; 84100; 84484; 85007; 85025; 85610; 85651; 85730; 86140; 86703; 86999; 87040; 87045; 87086; 87181; 93005; 93306; 99285; J2405

== ENCOUNTER 2017-12-31 03:38 | Inpatient (IN) | payer MEDICAID ==
[2017-12-31] VITALS (8 sets, daily range): BP systolic 99–141; BP diastolic 56–87
[~2017-12-31] VITALS: Ht 177.8 cm; Wt 59.0 kg
[~2017-12-31 03:38] MED LIST changes: +ESTRADIOL20 MG/1 ML IM; +LEVOFLOXACIN750 MG ORAL; +LEXAPRO10 MG ORAL; +METRONIDAZOLE500 MG ORAL; +PROGESTERONE100 MG PO
[2017-12-31] MEDS ORDERED: Haloperidol 5mg/ml Inj IM ONE (04:00)
[2017-12-31] MEDS ORDERED: Ketorolac 30mg Inj IV ONE (04:30)
--- NOTE | 2017-12-31 04:43 | Emergency Room Report ---
History of Present Illness General Chief Complaint: Abdominal Pain Source: Patient, Medical Record Present Illness HPI Is a 32-year-old male with a history of some abdominal pain and cyclic vomiting syndrome. He's been here several times already. Is his fourth visit in the last 2-3 months. He also seen at other hospitals. He was admitted for check abdominal pain with vomiting. Had a high white count. That was better and to CTs were negative. Was discharged home recently. He said he never got better he came back with abdominal pain. His been vomiting to keep anything down. Pain is 10 out of 10. No diarrhea. Similar symptoms in the past. Allergies: Coded Allergies: MORPHINE (Unverified Allergy, Intermediate, hives, 12/20/17) uncoded allergy, created coded allergy w/comments that was attached "hives" PENICILLINS (Verified Allergy, Unknown, 10/05/17) Patient History Past Medical History: see triage record, old chart reviewed Past Surgical History: other Pertinent Family History: none Social History: Reports: smoking, drug use Immunizations: other Reviewed Nursing Documentation: PMH: Agreed, PSxH: Agreed Nursing Documentation-PMH Hx Cardiac Problems: No - MARFAN SYNDROME Hx Cancer: No Hx Gastrointestinal Problems: Yes Hx Neurological Problems: No Review of Systems Eye: Denies: eye pain, blurred vision ENT: Denies: ear pain, nose congestion, throat swelling Respiratory: Denies: cough, shortness of breath Cardiovascular: Denies: chest pain, palpitations Gastrointestinal: Reports: abdominal pain, nausea, vomiting, Denies: diarrhea Musculoskeletal: Denies: back pain, joint pain Skin: Denies: rash Neurological: Denies: headache, numbness Endocrine: Denies: increased thirst, increased urine Hematologic/Lymphatic: Denies: easy bruising All Other Systems: negative except mentioned in HPI Physical Exam Vital Signs Date Time Temp Pulse Resp B/P (MAP) Pulse Ox O2 Delivery O2 Flow Rate FiO2 12/31/17 03:44 98.2 85 22 139/90 100 Room Air vitals normal Sp02 EP Interpretation: reviewed, normal General Appearance: well appearing, no apparent distress, alert, thin Head: normocephalic, atraumatic Eyes: bilateral eye PERRL, bilateral eye EOMI ENT: hearing grossly normal, normal pharynx, other - Poor dentition Neck: full range of motion, supple, no meningismus Respiratory: chest non-tender, lungs clear, normal breath sounds Cardiovascular #1: regular rate, rhythm, no murmur Gastrointestinal: normal bowel sounds, no mass, no organomegaly, no bruit, non- distended, tenderness - Diffuse Musculoskeletal: back normal, gait/station normal, normal range of motion Neurologic: alert, oriented x3 Psychiatric: mood/affect normal Skin: warm/dry Medical Decision Making Diagnostic Impression: Primary Impression: Abdominal pain of unknown etiology Additional Impressions: Cyclic vomiting syndrome Qualified Codes: G43.A1 - Cyclical vomiting, intractable Leukocytosis Qualified Codes: D72.829 - Elevated white blood cell count, unspecified Dehydration ER Course Patient presents with abdominal pain with vomiting but no diarrhea. He was very histrionic screaming and writhing in pain. But he does lay still for an IV. Is not tachycardic. Patient with intractable abdominal pain and vomiting. Better now. White count elevated. Most likely a stress response. No evidence of infection. He said he was allergic to Haldol after he was given. No adverse affect. Also not allergic to morphine. Because of elevated white count and dehydration, will admit for IV fluid. Lab Results Impression labs with leukocytosis Last Vital Signs Date Time Temp Pulse Resp B/P (MAP) Pulse Ox O2 Delivery O2 Flow Rate FiO2 12/31/17 03:44 98.2 85 22 139/90 100 Room Air Status: improved Disposition: ADMITTED INPATIENT Condition: Serious SAMUEL OCAMPO M.D. Dec 31, 2017 04:43
[2017-12-31 05:04] LABS: HEMATOCRIT 41.9 % (42.0-52.0); HEMOGLOBIN 14.7 G/DL (14.2-18.0); MEAN CORPUSCULAR VOLUME 101 FL (80-99); PLATELET COUNT 263 K/UL (150-450); RED BLOOD COUNT 4.16 M/UL (4.70-6.10); RED CELL DISTRIBUTION WIDTH 11.8 % (11.6-14.8); WHITE BLOOD COUNT 20.1 K/UL (4.8-10.8)
[2017-12-31 05:11] LABS: APPEARANCE,URINE CLEAR; BILIRUBIN, URINE NEGATIVE (NEGATIVE); GLUCOSE, URINE (UA) NEGATIVE (NEGATIVE); KETONES,URINE 3+ (NEGATIVE); LEUKOCYTE ESTERASE ,URINE 1+ (NEGATIVE); NITRITE,URINE NEGATIVE (NEGATIVE); PH,URINE 5 (4.5-8.0); PROTEIN,URINE 2+ (NEGATIVE); UROBILINOGEN,URINE NORMAL MG/DL (0.0-1.0)
[2017-12-31 05:13] LABS: ANION GAP 10 mmol/L (5-15); BLOOD UREA NITROGEN 11 mg/dL (7-18); CALCIUM 8.7 MG/DL (8.5-10.1); CARBON DIOXIDE 23 MMOL/L (21-32); CHLORIDE 105 MMOL/L (98-107); CREATININE 0.9 MG/DL (0.55-1.30); POTASSIUM 3.4 MMOL/L (3.5-5.1); SODIUM 138 MMOL/L (136-145)
[2017-12-31 05:17] LABS: ALANINE AMINOTRANSFERASE 15 U/L (12-78); ALBUMIN 3.8 G/DL (3.4-5.0); ALBUMIN/GLOBULIN RATIO 1.3 (1.0-2.7); ALKALINE PHOSPHATASE 60 U/L (46-116); ASPARTATE AMINO TRANSFERASE 22 U/L (15-37); BILIRUBIN,TOTAL 0.3 MG/DL (0.2-1.0)
[2017-12-31 05:19] LABS: COLOR,URINE YELLOW
[2017-12-31] MEDS ORDERED: Morphine Sulfate 4mg/ml Inj IVP ONE (05:30)
[2017-12-31] MEDS ORDERED: HYDROmorphone 1mg/ml Carpuject IVP ONE (06:45)
--- NOTE | 2017-12-31 10:43 | History & Physical ---
History and Physical History & Physicial Dictated for Int Med-Dr Blakely no.[id number]. ELSIE ANGELES Dec 31, 2017 10:43
[2017-12-31] MEDS ORDERED: HYDROmorphone 1mg/ml Carpuject IVP PRN (11:00)
[2017-12-31] MEDS: Pantoprazole Inj IV SCH (11:03)
[2017-12-31] MEDS: Spironolactone 50mg tab ORAL SCH ×2 (11:04→17:29)
--- NOTE | 2017-12-31 12:05 | GI Initial Consult Note ---
History of Present Illness General Date patient seen: Dec 31, 2017 Time patient seen: 11:56 Reason for Hospitalization: Abdominal Pain Referring physician: SHARAN LEVINE Reason for Consultation: ABDOMINAL PAIN Present Illness HPI Is a 32-year-old male with a history of some abdominal pain and cyclic vomiting syndrome. He's been here several times already. Is his fourth visit in the last 2-3 months. He also seen at other hospitals. He was admitted for check abdominal pain with vomiting. Had a high white count. That was better and to CTs were negative. Was discharged home recently. He said he never got better he came back with abdominal pain. His been vomiting to keep anything down. Pain is 10 out of 10. No diarrhea. Similar symptoms in the past. GI consulted for abdominal pain. Pt seen on floor, awake alert c/o of 10/10 abdominal and generalized pain. Recent admission here at [facility] approximately a week ago for similar conditions. C/o of vomiting wit specs of blood. Has multiple episodes of diarrhea. Denies any melena or hematochezia. History of cyclic vomiting with positive utox for marijuana. CT AP was taken twice during last admission with unremarkable results. Home Meds Active Scripts Famotidine (PEPCID) 40 Mg Tablet, 40 MG PO DAILY, #7 TAB 0 Refills Prov:KARL MOE D.O. 10/05/17 Reported Medications Escitalopram Oxalate* (LEXAPRO*) 10 Mg Tablet, 10 MG ORAL DAILY, TAB 12/27/17 Metronidazole* (FLAGYL*) 500 Mg Tablet, 500 MG ORAL EVERY 8 HOURS, TAB 12/27/17 Levofloxacin* (LEVOFLOXACIN*) 750 Mg Tablet, 750 MG ORAL DAILY for 1 Day, TAB 12/27/17 Progesterone,Micronized (PROGESTERONE) 100 Mg Capsule, 100 MG PO, CAP 12/20/17 Estradiol Valerate (ESTRADIOL VALERATE) 20 Mg/1 Ml Vial, 20 MG IM [id number], VIAL 12/20/17 Spironolactone* (SPIRONOLACTONE*) 100 Mg Tablet, 100 MG ORAL BID, TAB 12/20/17 Estrogens Conjugated (Premarin) 0.3 Mg Tablet, ORAL DAILY, #30 TAB 0 Refills 10/05/17 Med list reviewed/reconciled: Yes Allergies: Coded Allergies: PENICILLINS (Verified Allergy, Unknown, 10/05/17) Patient History History Provided By: Patient, Medical Record PMH Narrative Past Medical History: see triage record, old chart reviewed Past Surgical History: other Pertinent Family History: none Social History: Reports: smoking, drug use Immunizations: other Reviewed Nursing Documentation: PMH: Agreed, PSxH: Agreed Nursing Documentation-PMH Hx Cardiac Problems: No - MARFAN SYNDROME Hx Cancer: No Hx Gastrointestinal Problems: Yes Hx Neurological Problems: No Social History: Reports: drug use - marijuana Review of Systems All Other Systems: negative except mentioned in HPI Physical Exam Vital Signs Date Time Temp Pulse Resp B/P (MAP) Pulse Ox O2 Delivery O2 Flow Rate FiO2 12/31/17 03:44 98.2 85 22 139/90 100 Room Air Sp02 EP Interpretation: reviewed, normal Labs Laboratory Tests Test 12/31/17 04:50 12/31/17 05:00 White Blood Count 20.1 K/UL (4.8-10.8) H Red Blood Count 4.16 M/UL (4.70-6.10) L Hemoglobin 14.7 G/DL (14.2-18.0) Hematocrit 41.9 % (42.0-52.0) L Mean Corpuscular Volume 101 FL (80-99) H Mean Corpuscular Hemoglobin 35.5 PG (27.0-31.0) H Mean Corpuscular Hemoglobin Concent 35.2 G/DL (32.0-36.0) Red Cell Distribution Width 11.8 % (11.6-14.8) Platelet Count 263 K/UL (150-450) Mean Platelet Volume 7.5 FL (6.5-10.1) Neutrophils (%) (Auto) % (45.0-75.0) Lymphocytes (%) (Auto) % (20.0-45.0) Monocytes (%) (Auto) % (1.0-10.0) Eosinophils (%) (Auto) % (0.0-3.0) Basophils (%) (Auto) % (0.0-2.0) Differential Total Cells Counted 100 Neutrophils % (Manual) 77 % (45-75) H Lymphocytes % (Manual) 18 % (20-45) L Monocytes % (Manual) 3 % (1-10) Eosinophils % (Manual) 2 % (0-3) Basophils % (Manual) 0 % (0-2) Band Neutrophils 0 % (0-8) Platelet Estimate Adequate Platelet Morphology Normal Sodium Level 138 MMOL/L (136-145) Potassium Level 3.4 MMOL/L (3.5-5.1) L Chloride Level 105 MMOL/L (98-107) Carbon Dioxide Level 23 MMOL/L (21-32) Anion Gap 10 mmol/L (5-15) Blood Urea Nitrogen 11 mg/dL (7-18) Creatinine 0.9 MG/DL (0.55-1.30) Estimat Glomerular Filtration Rate > 60 mL/min (>60) Glucose Level 156 MG/DL (74-106) H Calcium Level 8.7 MG/DL (8.5-10.1) Total Bilirubin 0.3 MG/DL (0.2-1.0) Aspartate Amino Transf (AST/SGOT) 22 U/L (15-37) Alanine Aminotransferase (ALT/SGPT) 15 U/L (12-78) Alkaline Phosphatase 60 U/L (46-116) Total Protein 6.8 G/DL (6.4-8.2) Albumin 3.8 G/DL (3.4-5.0) Globulin 3.0 g/dL Albumin/Globulin Ratio 1.3 (1.0-2.7) Lipase 114 U/L (73-393) Urine Opiates Screen Negative (NEGATIVE) Urine Barbiturates Screen Negative (NEGATIVE) Phencyclidine (PCP) Screen Negative (NEGATIVE) Urine Amphetamines Screen Negative (NEGATIVE) Urine Benzodiazepines Screen Negative (NEGATIVE) Urine Cocaine Screen Negative (NEGATIVE) Urine Marijuana (THC) Screen Positive (NEGATIVE) H Urine Color Yellow Urine Appearance Clear Urine pH 5 (4.5-8.0) Urine Specific Reynolds 1.025 (1.005-1.035) Urine Protein 2+ (NEGATIVE) H Urine Glucose (UA) Negative (NEGATIVE) Urine Ketones 3+ (NEGATIVE) H Urine Occult Blood Negative (NEGATIVE) Urine Nitrite Negative (NEGATIVE) Urine Bilirubin Negative (NEGATIVE) Urine Urobilinogen Normal MG/DL (0.0-1.0) Urine Leukocyte Esterase 1+ (NEGATIVE) H Urine RBC 0-2 /HPF (0 - 0) H Urine WBC 2-4 /HPF (0 - 0) Urine Squamous Epithelial Cells Many /LPF (NONE/OCC) H Urine Bacteria Few /HPF (NONE) General Appearance: well appearing, no apparent distress, alert Head: normocephalic EENT: PERRL/EOMI, normal ENT inspection Neck: supple Respiratory: normal breath sounds, no respiratory distress Cardiovascular: normal rate Gastrointestinal: normal inspection, non tender, soft, normal bowel sounds, non -distended Rectal: deferred Genitourinary: deferred Musculoskeletal: normal inspection, back normal Neurologic: normal inspection, alert, oriented x3, responsive Psychiatric: normal inspection, judgement/insight normal, memory normal Skin: normal inspection, normal color, no rash, warm/dry, palpation normal, well hydrated Lymphatic: normal inspection, no adenopathy Current Medications Current Medications Medications (Trade) Dose Ordered Sig/Brandon Route PRN Reason Start Time Stop Time Status Last Admin Dose Admin Acetaminophen (Tylenol) 650 mg Q4H PRN ORAL Mild Pain (Pain Scale 1-3) 12/31/17 11:00 01/30/18 10:59 Dextrose (Dextrose 50%) STAT PRN IV Hypoglycemia 12/31/17 11:00 01/30/18 10:59 Escitalopram Oxalate (Lexapro) 10 mg DAILY ORAL 12/31/17 11:00 01/30/18 10:59 12/31/17 11:04 Estrogens Conjugated (Premarin) 0.3 mg DAILY ORAL 12/31/17 11:00 01/30/18 10:59 Hydromorphone HCl (Dilaudid) 1 mg Q3H PRN IVP Moderate Pain (Pain Scale 4-6) 12/31/17 11:00 01/07/18 10:59 Hydromorphone HCl (Dilaudid) 2 mg Q3H PRN IVP Severe Pain (Pain Scale 7-10) 12/31/17 11:00 01/07/18 10:59 12/31/17 11:03 Ondansetron HCl (Zofran) 4 mg Q4H PRN IVP Nausea & Vomiting 12/31/17 11:00 01/30/18 10:59 Pantoprazole (Protonix) 40 mg DAILY IV 12/31/17 11:00 01/30/18 10:59 12/31/17 11:03 Sodium 1,000 ml @ 100 mls/hr Q10H IV 12/31/17 12:00 01/30/18 11:59 Spironolactone (Aldactone) 100 mg BID ORAL 12/31/17 11:00 01/30/18 10:59 12/31/17 11:04 Temazepam (Restoril) 15 mg HSPRN PRN ORAL Insomnia 12/31/17 21:00 01/07/18 20:59 GI: Plan Problems: (1) Abdominal pain of unknown etiology (2) Cyclic vomiting syndrome (3) Dehydration (4) Nausea & vomiting (5) Diarrhea Plan utox positive for marijuana cdiff, stool studies negative during last admission 2 weeks ago symptomatic treatment wean down narcotics ppi daily pain mgmt defer reglan, has drug interaction with SNRI zofran prn / compazine prn fu labs Discussed with Dr. Kahn. Thank you for this patient referral, we will follow. Elise Mosqueda N.P. Dec 31, 2017 12:05
[2017-12-31] MEDS: ESTROGENS CONJ 0.3 MG ORAL SCH (13:43)
[2017-12-31] MEDS: 1/2NS w/KCl 20mEq 1000ml 1,000 ML IV SCH ×2 (13:43→21:48)
--- NOTE | 2017-12-31 16:45 | History and Physical Report ---
DATE OF ADMISSION: 12/31/2017 CHIEF COMPLAINT: The patient is a 32-year-old white female transsexual who presents with chief complaint of left flank pain and intractable nausea and vomiting. HISTORY OF PRESENT ILLNESS: The patient was admitted to [facility] from 12/20/2017 through 12/27/2017. The patient was discharged on Levaquin and Flagyl. The patient states he was at work this morning. The patient states he collapsed on the floor secondary to abdominal pain. The patient complains of epigastric pain that radiates to the left flank. The patient also has had intractable nausea and vomiting. The patient presented to [place] emergency room. The patient was admitted for intractable nausea, vomiting and abdominal pain. PAST MEDICAL HISTORY: Significant for: 1. Chronic pancreatitis x2 in the past. 2. Marfan syndrome. 3. Spontaneous pneumothorax x3. PAST SURGICAL HISTORY: Significant for appendectomy. CURRENT MEDICATIONS: 1. Estrogen 20 mg IM q.2 weeks. 2. Estrogen 0.3 mg p.o. daily. 3. Pepcid 40 mg p.o. daily. 4. Progesterone 100 mg p.o. daily. 5. Spironolactone 100 mg p.o. twice daily. ALLERGIES: 1. Penicillin. 2. Morphine. 3. Tramadol. 4. Haldol. SOCIAL HISTORY: The patient is single. 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 The patient admits to tobacco use one-half pack per day. The patient admits to rare alcohol use. The patient is a male to female transgender. REVIEW OF SYSTEMS: CONSTITUTIONAL: The patient denies weight loss or weight gain. The patient denies fever or chills. HEENT: The patient denies ear or throat pain. The patient has headache. CARDIOVASCULAR: The patient denies palpitations or chest pain. CHEST: The patient denies wheeze or shortness of breath. ABDOMEN: The patient complains of epigastric pain, which radiates to the left flank. The patient complains of nausea and vomiting. The patient complains of some diarrhea. The patient denies constipation. GENITOURINARY: The patient denies dysuria or increased frequency of urination. NEUROMUSCULAR: The patient denies seizures or generalized weakness. LABORATORY AND DIAGNOSTIC STUDIES: WBC 20.1, hemoglobin 14.7, hematocrit 41.9 and platelets 253,000. Sodium 138, potassium 3.4, chloride 105, CO2 23, BUN 11, creatinine 0.9 and glucose 156. Urine toxicology was positive for marijuana. Urinalysis showed 3+ ketones and 2+ protein. ASSESSMENT: This is a 32-year-old white transgender male to female with: 1. Abdominal pain. 2. Intractable nausea and vomiting. 3. Diarrhea. 4. Chronic pancreatitis. 5. Marfan syndrome. 6. Leukocytosis. TREATMENT: 1. Abdominal pain/nausea/vomiting/diarrhea. A Gastroenterology consultation will be obtained with Dr. Ascencion Kahn. The patient may require colonoscopy and endoscopy during this hospitalization. We will follow recommendations of Gastroenterology. Source of nausea, vomiting, and abdominal pain was not resolved during the last hospitalization. 2. Chronic pancreatitis. Initial lipase level was normal. Repeat lipase and amylase are pending. 3. Marfan syndrome. 4. Leukocytosis. Gutierrez Choudhury M.D. DR: FELIPE JOB#: [id number] CC:
[2018-01-01] VITALS: BP 94/64
[2018-01-01 04:00] VITALS: BP 101/60
[2018-01-01 08:00] VITALS: BP 106/62
[2018-01-01] MEDS: Pantoprazole Inj IV SCH (08:40)
[2018-01-01] MEDS: ESTROGENS CONJ 0.3 MG ORAL SCH (08:40)
[2018-01-01] MEDS: Spironolactone 50mg tab ORAL SCH (08:40)
[2018-01-01] MEDS: 1/2NS w/KCl 20mEq 1000ml 1,000 ML IV SCH (08:41)
[2018-01-01 08:47] LABS: BASOPHILS % (AUTO) 0.6 % (0.0-2.0); EOSINOPHILS % (AUTO) 1.6 % (0.0-3.0); HEMATOCRIT 35.7 % (42.0-52.0); HEMOGLOBIN 12.3 G/DL (14.2-18.0); LYMPHOCYTES % (AUTO) 30.1 % (20.0-45.0); MEAN CORPUSCULAR VOLUME 102 FL (80-99); NEUTROPHILS % (AUTO) 60.7 % (45.0-75.0); PLATELET COUNT 191 K/UL (150-450); RED BLOOD COUNT 3.52 M/UL (4.70-6.10); RED CELL DISTRIBUTION WIDTH 11.8 % (11.6-14.8)
[2018-01-01 10:07] LABS: ALANINE AMINOTRANSFERASE 26 U/L (12-78); ALBUMIN 3.2 G/DL (3.4-5.0); ALBUMIN/GLOBULIN RATIO 1.3 (1.0-2.7); ALKALINE PHOSPHATASE 52 U/L (46-116); ANION GAP 9 mmol/L (5-15); ASPARTATE AMINO TRANSFERASE 42 U/L (15-37); BILIRUBIN,TOTAL 0.3 MG/DL (0.2-1.0); BLOOD UREA NITROGEN 11 mg/dL (7-18); CALCIUM 8.1 MG/DL (8.5-10.1); CARBON DIOXIDE 23 MMOL/L (21-32); CHLORIDE 106 MMOL/L (98-107); CREATININE 0.8 MG/DL (0.55-1.30); POTASSIUM 3.6 MMOL/L (3.5-5.1); SODIUM 138 MMOL/L (136-145)
--- NOTE | 2018-01-01 18:48 | Discharge Summary ---
Discharge Summary Hospital Course Date of Admission Dec 31, 2017 at 06:01 Date of Discharge Jan 01, 2018 at 09:32 Admitting Diagnosis intractable abdominal pain HPI Sorin Gramajo is a 32 year old male who was admitted on Dec 31, 2017 at 06:01 for Intractable Abdominal Pain Hospital Course [id number] Discharge Discharge Disposition Patient left AMA Discharge Diagnoses: Tamela Beltre NP Jan 01, 2018 18:48
--- NOTE | 2018-01-02 04:30 | Discharge Summary 2 SIG ---
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 BRIEF HOSPITAL COURSE: The patient is a 32-year-old male, transsexual, who presented to ED complaining of flank pain and intractable nausea and vomiting. The patient was recently admitted to [facility] and was discharged on Levaquin and Flagyl, however, the patient stated that he was at work and he collapsed onto floor secondary to abdominal pain. Pain was located to be in the epigastric region that was radiating to the left flank and had intractable nausea and vomiting. On evaluation at ED, WBC was 20. Urine toxicology was positive for marijuana. Urinalysis showed 2+ ketones and 2+ protein. The patient was admitted for evaluation of abdominal pain and intractable nausea and vomiting. He was seen by Dr. Kahn. Initial lipase was normal. Full treatment was not carried out as the patient left against medical advice. FINAL DIAGNOSES: 1. Abdominal pain. 2. Intractable nausea and vomiting. 3. Diarrhea. 4. Chronic pancreatitis. 5. Marfan syndrome. 6. Leukocytosis. 7. Cyclic vomiting syndrome. 8. Noncompliance as the patient signed out against medical advice. Gutierrez Choudhury M.D. I have been assigned to dictate discharge summary on this account and I was not involved in the patient's management. Tamela Beltre N.P. DR: PROSPER JOB#: [id number] CC:
== END 2018-01-01 09:32 | disposition left against medical advice (07) | DRG 251 ==
LOC: EMR 03:55 → 4E 06:01 → EDBEDREQ 06:59 → 4E 09:57
DX: R10.9 Unspecified abdominal pain (principal); Q87.40 Marfan syndrome, unspecified; K31.89 Other diseases of stomach and duodenum; E86.0 Dehydration; R19.7 Diarrhea, unspecified; Z88.6 Allergy status to analgesic agent; Z88.0 Allergy status to penicillin; F17.200 Nicotine dependence, unspecified, uncomplicated; R11.2 Nausea with vomiting, unspecified; Z91.19 Patient's noncompliance with other medical treatment and regimen; K86.1 Other chronic pancreatitis; Z79.890 Hormone replacement therapy
CPT/HCPCS: 36415; 80053; 80307; 81001; 83690; 85007; 85025; 87040; 87081; 99285